=== PATIENT | male | born 1970 | race Caucasian/White ===

== ENCOUNTER 2016-11-17 23:30 | Inpatient (IN) | payer MEDICARE, MEDICAID ==
[2016-11-17] MEDS ORDERED: Sodium Chloride 0.9% 1,000 ML IV ONE (23:40)
--- NOTE | 2016-11-17 23:48 | ED Physician Chart ---
Chief Complaint/HPI - Patient Information Date Seen:: 11/17/16 Time Seen:: 23:30 Chief Complaint:: fever History of Present Illness:: had temperature of 102.5 at 2100. Arrived at 2 hr before from [place] where had extra corporeal shock wave lithotripsy and urological surgery with right flank incision. Allergies:: Allergies Allergy/AdvReac Type Severity Reaction Status Date / Time MDX Docusate [From [facility]] Allergy Verified 08/15/15 18:41 Historian:: EMS, Family Member Review:: Nurse's Note Reviewed, Transfer documents Reviewed Review of Systems - Review of Systems General/Constitutional: Fever Skin: No skin lesions Head: No headache Eyes: No loss of vision ENT: No earache Neck: No neck pain Cardio Vascular: No chest pain Pulmonary: No SOB GI: No nausea, No vomiting G/U: No dysuria Musculoskeletal: No bone or joint pain Endocrine: No polyuria Psychiatric: No prior psych history Hematopoietic: No bruising Allergic/Immuno: No urticaria Neurological: No syncope, No focal symptoms Past Medical History - Past Medical History Past Medical History: HTN (profound MR; cerebral palsy; blind; osteoporosis; nephrolithiasis; mitral valve regurgitation; recurrent UTI; gastritis), Seizures Family History: Other (not available) Social History: Care Facility Surgical History: other (unavailable) Family Medical History - Family Member Mother History Unknown: Yes Physical Exam - Physical Examination Other Gen/Cons comments:: non-verbal; contractured Head: Atraumatic Eyes: Lids, conjuctiva normal, PERRL Skin: Nl inspection ENMT: External ears, nose nl Neck: No JVD Respiratory: Nl effort/Exclusion, Clear to Auscultation Cardio Vascular: RRR GI: No tenderness/rebounding/guarding, No organomegaly, No hernia, Normal BS's Extremities: No edema Labs/Radiology/EKG Results - Lab Results Results: Laboratory Results - last 24 hr 11/18/16 11/18/16 11/18/16 00:04 00:04 01:00 WBC 12.9 H RBC 4.28 L Hgb 11.6 L Hct 34.8 L D MCV 81.3 MCH 27.0 MCHC Differential 33.2 RDW 14.7 Plt Count 400 D MPV 6.7 Neutrophils % 76.7 Lymphocytes % 13.8 L Monocytes % 6.1 Eosinophils % 3.3 Basophils % 0.1 Sodium 136 Potassium 3.4 L Chloride 104 Carbon Dioxide 22.2 Anion Gap 13.2 BUN 18 Creatinine 1.5 H Est GFR ( Amer) > 60.0 Est GFR (Non-Af Amer) 53.3 BUN/Creatinine Ratio 12.0 Glucose 141 H Calcium 9.6 Urine Source [place] Urine Color YELLOW Urine Clarity HAZY Urine pH 6.0 Ur Specific [place] 1.020 Urine Protein >300 H Urine Glucose (UA) NEGATIVE Urine Ketones NEGATIVE Urine Blood LARGE H Urine Nitrate NEGATIVE Urine Bilirubin NEGATIVE Urine Urobilinogen 0.2 Ur Leukocyte Esterase SMALL H Urine RBC >100 H Urine WBC >100 H Ur Epithelial Cells FEW Urine Bacteria MODERATE - Radiology Results Results: CXR: pleural effusion right base. ED Septic Shock - . Is Septic Shock (SBP<90, OR Lactate>4 mmol\L) present?: No Reassessment (Disposition) - Reassessment Reassessment Condition:: Unchanged - Diagnosis Diagnosis:: sepsis; acute febrile illness; urinary tract infection - Patient Disposition Admitted to:: Med/Surg Spoke to:: Doni Bhagat Admitting Medical Physician:: Doni Bhagat Condition at Disposition:: Stable, Improved
[2016-11-18 00:16] LABS: % BASOPHILS 0.1 % (0.0-2.0); % EOSINOPHILS 3.3 % (0.0-5.0); % LYMPHOCYTES 13.8 % (20.0-50.0); % MONOCYTES 6.1 % (2.0-10.0); % NEUTROPHILS 76.7 % (40.0-80.0); HEMOGLOBIN 11.6 gm/dL (13.2-17.3); MEAN CELL VOLUME 81.3 fl (80-99); MEAN CORPUSCULAR HGB CONC 33.2 pg (28.0-36.0); MEAN PLATELET VOLUME 6.7 fl; NEUTROPHILE ABSOLUTE 9.9 Th/cmm (1.8-8.0); RED BLOOD COUNT 4.28 Mil/cmm (4.30-5.70); RED CELL DISTRIBUTION WIDTH 14.7 % (11.5-20.0); WHITE BLOOD COUNT 12.9 Th/cmm (4.8-10.8)
[2016-11-18 00:17] LABS: HEMATOCRIT 34.8 % (39.0-49.0)
[2016-11-18 00:18] LABS: PLATELET COUNT 400 Th/cmm (150-400)
[2016-11-18] MEDS ORDERED: Magnesium Hydroxide (MOM) 30 mL UDC PO PRN (00:19)
[2016-11-18] MEDS ORDERED: Hydrocodone/APAP 5mg/325mg Tab PO PRN (00:19)
[2016-11-18] MEDS ORDERED: Maalox 30 mL Cup PO PRN (00:22)
[2016-11-18 00:27] LABS: ANION GAP 13.2 (7.0-16.0); BUN - UREA NITROGEN 18 mg/dL (7-25); CALCIUM SERUM 9.6 mg/dL (8.6-10.3); CARBON DIOXIDE 22.2 mEq/L (21.0-31.0); CHLORIDE 104 mEq/L (98-107); CREATININE - SERUM 1.5 mg/dL (0.7-1.3); GLUCOSE 141 mg/dL (70-105); POTASSIUM SERUM 3.4 mEq/L (3.5-5.1); SODIUM SERUM 136 mEq/L (136-145)
[2016-11-18 01:20] LABS: URINE BILIRUBIN NEGATIVE (NEGATIVE); URINE COLOR YELLOW; URINE GLUCOSE (UA) NEGATIVE (NEGATIVE); URINE KETONE NEGATIVE (NEGATIVE)
[2016-11-18 01:21] LABS: URINE BLOOD LARGE (NEGATIVE); URINE PROTEIN >300 mg/dL (NEGATIVE); URINE RBC >100 /hpf (0-5); URINE UROBILINOGEN 0.2 E.U./dL (0.2 - 1.0)
[2016-11-18 01:22] LABS: URINE BACTERIA MODERATE /hpf (NONE SEEN); URINE EPITHELIAL CELLS FEW /lpf (FEW); URINE WBC >100 /hpf (0-5)
--- NOTE | 2016-11-18 02:25 | Admit Criteria Form ---
Admit Criteria Forms - Admit Criteria Diagnosis: URINARY COMPLICATIONS Clinical Indications for Inpatient Care (Place 'X' for any and all applicable criteria): Ongoing inpatient care may be indicated for urinary complications with ANY ONE of the following: [ X]I. Urinary tract infection requiring inpatient care as indicated by ANY ONE of the following(8)(19)(20): [ ]a) Severe symptoms (eg, high fever, severe pain) [ ]b) Vomiting or dehydration requiring ongoing inpatient care [ X]c) IV antibiotic needs that cannot be managed at lower level of care [ ]d) Hemodynamic instability [ ]e) Obstruction of collecting system by stone or tumor [ ]II. Urinary retention requiring drainage or surgery (3)(4)(5)(17)(18) [ ]III. Renal failure (Use Renal Failure Criteria for further information.) [ ]IV. Oliguria(30) [ ]V. Post obstructive diuresis requiring close monitoring of urine output and intravenous compensation for excessive fluid losses(33) Extended stay beyond goal length of stay for primary condition may be needed until ALL of the following are present(3)(4)(5)(8): [ ]a) Renal function (creatinine) at baseline, or daily decreases in creatinine consistent with renal function return [ ]b) Voiding adequately or with urinary catheter or percutaneous suprapubic tube and management regimen in place that is performable at lower level of care. [ ]c) Urine output adequate [ ]d) Fever absent or resolving [ ]e) Infection absent or treatable at next level of care The original [employer] content created by [employer] has been revised. The portions of the content which have been revised are identified through the use of italic text or in bold, and [facility] [employer] has neither reviewed nor approved the modified material. All other unmodified content is copyright [facility] [employer] Please see references footnoted in the original [facility] [employer] edition 2016 Admit Criteria Met?: Yes
[2016-11-18] MEDS: D5-0.45NS 1,000 ML IV SCH ×2 (03:00→14:52)
[2016-11-18] MEDS: Multivitamin w/ Minerals Tab PO SCH (09:06)
[2016-11-18] MEDS: POLYETHYLENE GLYCOL 3350 17 GM PACK PO SCH ×2 (09:08→16:56)
--- NOTE | 2016-11-18 09:37 | Diagnostic Imaging Report ---
CHEST X-RAY: AP view INDICATION: Fever COMPARISON: Chest x-ray 08/15/2015 FINDINGS: A right pleural effusion is noted with right lung infiltrates. Heart size is normal. Osseous structures are intact. IMPRESSION: Interval development of a right pleural effusion with right lung infiltrates. Clinical correlation and follow-up is recommended.
[2016-11-18] MEDS: Zinc Oxide Ointment 60 gm TP SCH ×2 (09:58→16:55)
--- NOTE | 2016-11-18 13:01 | Internal Medicine Prog Note ---
Internal Medicine Subjective - Subjective Service Date: 11/18/16 ([facility] [id number] Internal Medicine Objective - Results Result Diagrams: 11/18/16 00:04 11/18/16 00:04 Recent Labs: Laboratory Last Values WBC 12.9 Th/cmm (4.8-10.8) H 11/18/16 00:04 RBC 4.28 Mil/cmm (4.30-5.70) L 11/18/16 00:04 Hgb 11.6 gm/dL (13.2-17.3) L 11/18/16 00:04 Hct 34.8 % (39.0-49.0) L D 11/18/16 00:04 MCV 81.3 fl (80-99) 11/18/16 00:04 MCH 27.0 pg (26.0-30.0) 11/18/16 00:04 MCHC Differential 33.2 pg (28.0-36.0) 11/18/16 00:04 RDW 14.7 % (11.5-20.0) 11/18/16 00:04 Plt Count 400 Th/cmm (150-400) D 11/18/16 00:04 MPV 6.7 fl 11/18/16 00:04 Neutrophils % 76.7 % (40.0-80.0) 11/18/16 00:04 Lymphocytes % 13.8 % (20.0-50.0) L 11/18/16 00:04 Monocytes % 6.1 % (2.0-10.0) 11/18/16 00:04 Eosinophils % 3.3 % (0.0-5.0) 11/18/16 00:04 Basophils % 0.1 % (0.0-2.0) 11/18/16 00:04 Sodium 136 mEq/L (136-145) 11/18/16 00:04 Potassium 3.4 mEq/L (3.5-5.1) L 11/18/16 00:04 Chloride 104 mEq/L (98-107) 11/18/16 00:04 Carbon Dioxide 22.2 mEq/L (21.0-31.0) 11/18/16 00:04 Anion Gap 13.2 (7.0-16.0) 11/18/16 00:04 BUN 18 mg/dL (7-25) 11/18/16 00:04 Creatinine 1.5 mg/dL (0.7-1.3) H 11/18/16 00:04 Est GFR ( Amer) > 60.0 ml/min 11/18/16 00:04 Est GFR (Non-Af Amer) 53.3 ml/min 11/18/16 00:04 BUN/Creatinine Ratio 12.0 11/18/16 00:04 Glucose 141 mg/dL (70-105) H 11/18/16 00:04 Calcium 9.6 mg/dL (8.6-10.3) 11/18/16 00:04 Urine Source [place] 11/18/16 01:00 Urine Color YELLOW 11/18/16 01:00 Urine Clarity HAZY (CLEAR) 11/18/16 01:00 Urine pH 6.0 11/18/16 01:00 Ur Specific [place] 1.020 (1.005-1.030) 11/18/16 01:00 Urine Protein >300 mg/dL (NEGATIVE) H 11/18/16 01:00 Urine Glucose (UA) NEGATIVE mg/dL (NEGATIVE) 11/18/16 01:00 Urine Ketones NEGATIVE mg/dL (NEGATIVE) 11/18/16 01:00 Urine Blood LARGE (NEGATIVE) H 11/18/16 01:00 Urine Nitrate NEGATIVE (NEGATIVE) 11/18/16 01:00 Urine Bilirubin NEGATIVE (NEGATIVE) 11/18/16 01:00 Urine Urobilinogen 0.2 E.U./dL (0.2 - 1.0) 11/18/16 01:00 Ur Leukocyte Esterase SMALL (NEGATIVE) H 11/18/16 01:00 Urine RBC >100 /hpf (0-5) H 11/18/16 01:00 Urine WBC >100 /hpf (0-5) H 11/18/16 01:00 Ur Epithelial Cells FEW /lpf (FEW) 11/18/16 01:00 Urine Bacteria MODERATE /hpf (NONE SEEN) 11/18/16 01:00 - Physical Exam Vitals and I&O: Vital Signs Temp 99.4 F 11/18/16 08:00 Pulse 77 11/18/16 09:07 Resp 18 11/18/16 08:00 BP 154/79 11/18/16 09:07 Pulse Ox 95 11/18/16 04:58 Intake & Output 11/17/16 11/18/16 11/18/16 18:59 06:59 18:59 Intake Total 0 Output Total 450 Balance -450 Intake: Oral 0 Output: Urine 450 Other: # Bowel Movements 0 Active Medications: Current Medications Acetaminophen (Tylenol 650mg Supp) 650 mg RC Q4HR PRN PRN Reason: Pain or Fever >101 Stop: 01/17/17 00:18 Acetaminophen/Hydrocodone Bitart ([place] 5mg/325mg) 1 tab PO Q4H PRN PRN Reason: Pain (Moderate) Stop: 01/17/17 00:18 Al Hydrox/Mg Hydrox/Simethicone (Maalox) 30 ml PO Q6HR PRN PRN Reason: Constipation Stop: 01/17/17 00:21 Amlodipine Besylate (Norvasc) 5 mg PO DAILY [facility] Stop: 01/17/17 08:59 Last Admin: 11/18/16 09:07 Dose: 5 mg Baclofen (Lioresal) 10 mg PO QID [facility] Stop: 01/17/17 08:59 Last Admin: 11/18/16 12:12 Dose: 10 mg Bisacodyl (Dulcolax 10 Mg Supp) 10 mg RC DAILY PRN PRN Reason: Constipation Stop: 01/17/17 00:18 Calcium Carbonate (Os-Tam) 500 mg PO TID [facility] Stop: 01/17/17 08:59 Last Admin: 11/18/16 09:07 Dose: 500 mg Famotidine (Pepcid) 20 mg PO BID [facility] Stop: 01/17/17 08:59 Last Admin: 11/18/16 09:06 Dose: 20 mg Dextrose/Sodium Chloride (D5-0.45ns) 1,000 mls @ 80 mls/hr IV .[id number] [facility] Stop: 01/17/17 00:29 Last Admin: 11/18/16 03:00 Dose: 80 mls/hr Piperacillin Sod/Tazobactam (Sod 4.5 gm/ Sodium Chloride) 100 mls @ 100 mls/hr IV Q8HR [facility] Stop: 01/17/17 01:59 Last Admin: 11/18/16 03:25 Dose: 100 mls/hr Magnesium Hydroxide (Milk Of Magnesia) 30 ml PO Q72H PRN PRN Reason: Constipation Stop: 01/17/17 00:18 Metoprolol Tartrate (Lopressor) 50 mg PO BID [facility] Stop: 01/17/17 08:59 Last Admin: 11/18/16 09:06 Dose: 50 mg Ondansetron HCl (Zofran) 4 mg IV Q8H PRN PRN Reason: Nausea / Vomiting Stop: 01/17/17 00:21 Petrolatum (Zinc Oxide) 1 appl TP BID [facility] Stop: 01/17/17 08:59 Last Admin: 11/18/16 09:58 Dose: 1 appl Polyethylene Glycol (Miralax) 17 gm PO BID [facility] Stop: 01/17/17 08:59 Last Admin: 11/18/16 09:08 Dose: 17 gm Vitamin D (Vitamin D) 400 iu PO DAILY [facility] Stop: 01/17/17 08:59 Last Admin: 11/18/16 09:06 Dose: 400 iu - Procedures Procedures: Procedures Procedure Code Date INSERT INDWELLING CATH 57.94 08/21/08 INSERT TEMP BLADDER CATH 35410 08/21/08 Internal Medicine Assmt/Plan - Assessment Assessment: Fever, Sepsis
[2016-11-18] MEDS ORDERED: VTE Chemical Prophylaxis Screen/Admission MC PRN (13:09)
--- NOTE | 2016-11-18 17:51 | History & Physical ---
CHIEF COMPLAINT: Abdominal pain. HISTORY OF PRESENT ILLNESS: This is a 46-year-old male who is a resident of [facility] who is brought here to [facility] for 1-day history of a temperature of 102.5. According to the medical records, the patient was just recently discharged from [facility] where he had extracorporeal shockwave lithotripsy and urological surgery with the right flank incision. For this reason, the patient is now admitted to the telemetry unit. PAST MEDICAL HISTORY: Hypertension, cerebral palsy, osteoporosis, nephrolithiasis, mitral valve regurgitation, recurrent UTI, gastritis, and seizures. SOCIAL HISTORY: The patient resides at [facility], requiring 24-hour nursing care. SURGICAL HISTORY: The patient has recently had extracorporeal shockwave lithotripsy and urological surgery with right flank incision. REVIEW OF SYSTEMS: Unable to obtain due to the patient's mental status. PHYSICAL EXAMINATION: GENERAL: The patient is well developed, well nourished, no acute distress. VITAL SIGNS: Temperature 99.4, heart rate 113, blood pressure 130/74, respirations 18. HEENT: Head: Normocephalic, atraumatic. NECK: Supple. No mass. LUNGS: Few rhonchi bilaterally upon auscultation. CARDIOVASCULAR: Regular rate and rhythm. No murmurs or gallops. SKIN: Intact, warm and dry to touch. ABDOMEN: Soft, nontender, nondistended. Positive bowel sounds in all 4 quadrants. LABORATORY DATA: WBC 12.9, H and H 11.6 and 34.8. Sodium 136, potassium 3.4, chloride 104, carbon dioxide 22.2, BUN of 18, creatinine 1.5. The patient had a urinalysis done and it was positive for UTI. ASSESSMENT: Fever, sepsis. PLAN: The patient to be admitted to the med/surg unit. The patient will be on IV fluids for hydration. We will monitor the patient's CBC and BMP. The patient will be kept on IV antibiotics of Zosyn. We will continue to monitor the patient. JOB# [id number]
[2016-11-19] MEDS: D5-0.45NS 1,000 ML IV SCH ×2 (06:40→20:12)
[2016-11-19] MEDS: POLYETHYLENE GLYCOL 3350 17 GM PACK PO SCH ×2 (08:49→16:24)
[2016-11-19] MEDS: Multivitamin w/ Minerals Tab PO SCH (08:49)
[2016-11-19] MEDS: Zinc Oxide Ointment 60 gm TP SCH ×2 (08:51→16:24)
--- NOTE | 2016-11-19 16:50 | Internal Medicine Prog Note ---
Internal Medicine Subjective - Subjective Service Date: 11/19/16 Patient seen and examined:: with staff Patient is:: awake Per staff patient is:: no adverse event Internal Medicine Objective - Results Result Diagrams: 11/18/16 00:04 11/18/16 00:04 Recent Labs: Laboratory Last Values WBC 12.9 Th/cmm (4.8-10.8) H 11/18/16 00:04 RBC 4.28 Mil/cmm (4.30-5.70) L 11/18/16 00:04 Hgb 11.6 gm/dL (13.2-17.3) L 11/18/16 00:04 Hct 34.8 % (39.0-49.0) L D 11/18/16 00:04 MCV 81.3 fl (80-99) 11/18/16 00:04 MCH 27.0 pg (26.0-30.0) 11/18/16 00:04 MCHC Differential 33.2 pg (28.0-36.0) 11/18/16 00:04 RDW 14.7 % (11.5-20.0) 11/18/16 00:04 Plt Count 400 Th/cmm (150-400) D 11/18/16 00:04 MPV 6.7 fl 11/18/16 00:04 Neutrophils % 76.7 % (40.0-80.0) 11/18/16 00:04 Lymphocytes % 13.8 % (20.0-50.0) L 11/18/16 00:04 Monocytes % 6.1 % (2.0-10.0) 11/18/16 00:04 Eosinophils % 3.3 % (0.0-5.0) 11/18/16 00:04 Basophils % 0.1 % (0.0-2.0) 11/18/16 00:04 Sodium 136 mEq/L (136-145) 11/18/16 00:04 Potassium 3.4 mEq/L (3.5-5.1) L 11/18/16 00:04 Chloride 104 mEq/L (98-107) 11/18/16 00:04 Carbon Dioxide 22.2 mEq/L (21.0-31.0) 11/18/16 00:04 Anion Gap 13.2 (7.0-16.0) 11/18/16 00:04 BUN 18 mg/dL (7-25) 11/18/16 00:04 Creatinine 1.5 mg/dL (0.7-1.3) H 11/18/16 00:04 Est GFR ( Amer) > 60.0 ml/min 11/18/16 00:04 Est GFR (Non-Af Amer) 53.3 ml/min 11/18/16 00:04 BUN/Creatinine Ratio 12.0 11/18/16 00:04 Glucose 141 mg/dL (70-105) H 11/18/16 00:04 Calcium 9.6 mg/dL (8.6-10.3) 11/18/16 00:04 Urine Source [place] 11/18/16 01:00 Urine Color YELLOW 11/18/16 01:00 Urine Clarity HAZY (CLEAR) 11/18/16 01:00 Urine pH 6.0 11/18/16 01:00 Ur Specific [place] 1.020 (1.005-1.030) 11/18/16 01:00 Urine Protein >300 mg/dL (NEGATIVE) H 11/18/16 01:00 Urine Glucose (UA) NEGATIVE mg/dL (NEGATIVE) 11/18/16 01:00 Urine Ketones NEGATIVE mg/dL (NEGATIVE) 11/18/16 01:00 Urine Blood LARGE (NEGATIVE) H 11/18/16 01:00 Urine Nitrate NEGATIVE (NEGATIVE) 11/18/16 01:00 Urine Bilirubin NEGATIVE (NEGATIVE) 11/18/16 01:00 Urine Urobilinogen 0.2 E.U./dL (0.2 - 1.0) 11/18/16 01:00 Ur Leukocyte Esterase SMALL (NEGATIVE) H 11/18/16 01:00 Urine RBC >100 /hpf (0-5) H 11/18/16 01:00 Urine WBC >100 /hpf (0-5) H 11/18/16 01:00 Ur Epithelial Cells FEW /lpf (FEW) 11/18/16 01:00 Urine Bacteria MODERATE /hpf (NONE SEEN) 11/18/16 01:00 - Physical Exam Vitals and I&O: Vital Signs Temp 99.1 F 11/19/16 16:00 Pulse 99 11/19/16 16:25 Resp 18 11/19/16 16:00 BP 128/76 11/19/16 16:25 Pulse Ox 94 11/19/16 16:00 Intake & Output 11/18/16 11/19/16 11/19/16 18:59 06:59 18:59 Intake Total 6279.257 9273.667 Output Total 1201 Balance 1049.333 10.667 Intake: Intake, IV Amount 5786.947 9944.667 D5-0.45NS 1,000 ml @ 80 523.892 2794 mls/hr IV .[id number] [facility] Rx #:[id number] Piperacillin Sodium/ 100 191.667 Tazobact 4.5 gm In Sodium Chloride 0.9% 100 ml @ 100 mls/hr IV Q8HR [facility] Rx #:[id number] Oral 20 Output: Urine 1200 Stool 1 Active Medications: Current Medications Acetaminophen (Tylenol 650mg Supp) 650 mg RC Q4HR PRN PRN Reason: Pain or Fever >101 Stop: 01/17/17 00:18 Last Admin: 11/19/16 08:49 Dose: 650 mg Acetaminophen/Hydrocodone Bitart ([place] 5mg/325mg) 1 tab PO Q4H PRN PRN Reason: Pain (Moderate) Stop: 01/17/17 00:18 Al Hydrox/Mg Hydrox/Simethicone (Maalox) 30 ml PO Q6HR PRN PRN Reason: Constipation Stop: 01/17/17 00:21 Amlodipine Besylate (Norvasc) 5 mg PO DAILY [facility] Stop: 01/17/17 08:59 Last Admin: 11/19/16 08:50 Dose: 5 mg Baclofen (Lioresal) 10 mg PO QID [facility] Stop: 01/17/17 08:59 Last Admin: 11/19/16 16:25 Dose: 10 mg Bisacodyl (Dulcolax 10 Mg Supp) 10 mg RC DAILY PRN PRN Reason: Constipation Stop: 01/17/17 00:18 Calcium Carbonate (Os-Tam) 500 mg PO TID [facility] Stop: 01/17/17 08:59 Last Admin: 11/19/16 13:48 Dose: 500 mg Famotidine (Pepcid) 20 mg PO BID [facility] Stop: 01/17/17 08:59 Last Admin: 11/19/16 16:25 Dose: 20 mg Dextrose/Sodium Chloride (D5-0.45ns) 1,000 mls @ 80 mls/hr IV .[id number] [facility] Stop: 01/17/17 00:29 Last Admin: 11/19/16 06:40 Dose: 80 mls/hr Piperacillin Sod/Tazobactam (Sod 4.5 gm/ Sodium Chloride) 100 mls @ 100 mls/hr IV Q8HR [facility] Stop: 01/17/17 01:59 Last Infusion: 11/19/16 06:18 Dose: 0 mls/hr Magnesium Hydroxide (Milk Of Magnesia) 30 ml PO Q72H PRN PRN Reason: Constipation Stop: 01/17/17 00:18 Metoprolol Tartrate (Lopressor) 50 mg PO BID [facility] Stop: 01/17/17 08:59 Last Admin: 11/19/16 16:25 Dose: 50 mg Miscellaneous (Vte Chemical Prophylaxis Screen/ Admission) 1 ea [facility] PRN PRN PRN Reason: PROTOCOL Stop: 01/17/17 13:08 Ondansetron HCl (Zofran) 4 mg IV Q8H PRN PRN Reason: Nausea / Vomiting Stop: 01/17/17 00:21 Petrolatum (Zinc Oxide) 1 appl TP BID [facility] Stop: 01/17/17 08:59 Last Admin: 11/19/16 16:24 Dose: 1 appl Polyethylene Glycol (Miralax) 17 gm PO BID [facility] Stop: 01/17/17 08:59 Last Admin: 11/19/16 16:24 Dose: 17 gm Vitamin D (Vitamin D) 400 iu PO DAILY [facility] Stop: 01/17/17 08:59 Last Admin: 11/19/16 08:49 Dose: 400 iu General: alert HEENT: NC/AT, PERRLA Neck: Supple Lungs: CTAB Cardiovascular: RRR, Normal S1, Normal S2, without murmur Abdomen: soft non-tender - Procedures Procedures: Procedures Procedure Code Date INSERT INDWELLING CATH 57.94 08/21/08 INSERT TEMP BLADDER CATH [id number] 08/21/08 Internal Medicine Assmt/Plan - Assessment Assessment: Fever Sepsis - Plan Plan: MONITOR FOR FEVER IVABX CBC/BMP IN AM IVF FOR HYDRATION
[2016-11-19] MEDS ORDERED: KCL 20mEq/100mL Premix 20 MEQ/100 ML PIGGYBACK IV ONE (16:51)
[2016-11-19] MEDS: Guaifenesin DM 10 ML UDC PO PRN (19:56)
[2016-11-20 05:48] LABS: % BASOPHILS 0.8 % (0.0-2.0); % EOSINOPHILS 5.6 % (0.0-5.0); % MONOCYTES 7.5 % (2.0-10.0); % NEUTROPHILS 73.1 % (40.0-80.0); HEMOGLOBIN 9.8 gm/dL (13.2-17.3); MEAN CELL VOLUME 81.2 fl (80-99); MEAN CORPUSCULAR HEMOGLOBIN 26.9 pg (26.0-30.0); MEAN CORPUSCULAR HGB CONC 33.2 pg (28.0-36.0); MEAN PLATELET VOLUME 6.8 fl; NEUTROPHILE ABSOLUTE 7.1 Th/cmm (1.8-8.0); PLATELET COUNT 420 Th/cmm (150-400); RED BLOOD COUNT 3.63 Mil/cmm (4.30-5.70)
[2016-11-20 05:58] LABS: ANION GAP 10.1 (7.0-16.0); BUN/CREATININE RATIO 7.5; CALCIUM SERUM 9.1 mg/dL (8.6-10.3); CARBON DIOXIDE 20.6 mEq/L (21.0-31.0); CREATININE - SERUM 1.6 mg/dL (0.7-1.3); POTASSIUM SERUM 3.7 mEq/L (3.5-5.1)
[2016-11-20 05:59] LABS: HEMATOCRIT 29.5 % (39.0-49.0); WHITE BLOOD COUNT 9.6 Th/cmm (4.8-10.8)
[2016-11-20] MEDS: POLYETHYLENE GLYCOL 3350 17 GM PACK PO SCH ×2 (08:50→16:32)
[2016-11-20] MEDS: Zinc Oxide Ointment 60 gm TP SCH ×2 (08:50→16:32)
[2016-11-20] MEDS: Multivitamin w/ Minerals Tab PO SCH (08:51)
[2016-11-20] MEDS: Guaifenesin DM 10 ML UDC PO PRN (09:11)
[2016-11-20] MEDS: D5-0.45NS 1,000 ML IV SCH (16:33)
--- NOTE | 2016-11-20 16:57 | Internal Medicine Prog Note ---
Internal Medicine Subjective - Subjective Service Date: 11/20/16 Patient seen and examined:: with staff Patient is:: awake Per staff patient is:: no adverse event Internal Medicine Objective - Results Result Diagrams: 11/20/16 05:20 11/20/16 05:20 Recent Labs: Laboratory Last Values WBC 9.6 Th/cmm (4.8-10.8) D 11/20/16 05:20 RBC 3.63 Mil/cmm (4.30-5.70) L 11/20/16 05:20 Hgb 9.8 gm/dL (13.2-17.3) L 11/20/16 05:20 Hct 29.5 % (39.0-49.0) L D 11/20/16 05:20 MCV 81.2 fl (80-99) 11/20/16 05:20 MCH 26.9 pg (26.0-30.0) 11/20/16 05:20 MCHC Differential 33.2 pg (28.0-36.0) 11/20/16 05:20 RDW 15.0 % (11.5-20.0) 11/20/16 05:20 Plt Count 420 Th/cmm (150-400) H 11/20/16 05:20 MPV 6.8 fl 11/20/16 05:20 Neutrophils % 73.1 % (40.0-80.0) 11/20/16 05:20 Lymphocytes % 13.0 % (20.0-50.0) L 11/20/16 05:20 Monocytes % 7.5 % (2.0-10.0) 11/20/16 05:20 Eosinophils % 5.6 % (0.0-5.0) H 11/20/16 05:20 Basophils % 0.8 % (0.0-2.0) 11/20/16 05:20 Sodium 135 mEq/L (136-145) L 11/20/16 05:20 Potassium 3.7 mEq/L (3.5-5.1) 11/20/16 05:20 Chloride 108 mEq/L (98-107) H 11/20/16 05:20 Carbon Dioxide 20.6 mEq/L (21.0-31.0) L 11/20/16 05:20 Anion Gap 10.1 (7.0-16.0) 11/20/16 05:20 BUN 12 mg/dL (7-25) 11/20/16 05:20 Creatinine 1.6 mg/dL (0.7-1.3) H 11/20/16 05:20 Est GFR ( Amer) 59.9 ml/min 11/20/16 05:20 Est GFR (Non-Af Amer) 49.5 ml/min 11/20/16 05:20 BUN/Creatinine Ratio 7.5 11/20/16 05:20 Glucose 107 mg/dL (70-105) H 11/20/16 05:20 Calcium 9.1 mg/dL (8.6-10.3) 11/20/16 05:20 Urine Source [place] 11/18/16 01:00 Urine Color YELLOW 11/18/16 01:00 Urine Clarity HAZY (CLEAR) 11/18/16 01:00 Urine pH 6.0 11/18/16 01:00 Ur Specific [place] 1.020 (1.005-1.030) 11/18/16 01:00 Urine Protein >300 mg/dL (NEGATIVE) H 11/18/16 01:00 Urine Glucose (UA) NEGATIVE mg/dL (NEGATIVE) 11/18/16 01:00 Urine Ketones NEGATIVE mg/dL (NEGATIVE) 11/18/16 01:00 Urine Blood LARGE (NEGATIVE) H 11/18/16 01:00 Urine Nitrate NEGATIVE (NEGATIVE) 11/18/16 01:00 Urine Bilirubin NEGATIVE (NEGATIVE) 11/18/16 01:00 Urine Urobilinogen 0.2 E.U./dL (0.2 - 1.0) 11/18/16 01:00 Ur Leukocyte Esterase SMALL (NEGATIVE) H 11/18/16 01:00 Urine RBC >100 /hpf (0-5) H 11/18/16 01:00 Urine WBC >100 /hpf (0-5) H 11/18/16 01:00 Ur Epithelial Cells FEW /lpf (FEW) 11/18/16 01:00 Urine Bacteria MODERATE /hpf (NONE SEEN) 11/18/16 01:00 - Physical Exam Vitals and I&O: Vital Signs Temp 98.5 F 11/20/16 12:00 Pulse 100 11/20/16 16:31 Resp 18 11/20/16 12:00 BP 115/78 11/20/16 16:31 Pulse Ox 94 11/20/16 12:00 Intake & Output 11/19/16 11/20/16 11/20/16 18:59 06:59 18:59 Intake Total 200 1100 1000 Output Total 300 Balance -100 1100 1000 Intake: Intake, IV Amount 1100 1000 D5-0.45NS 1,000 ml @ 80 1000 1000 mls/hr IV .[id number] [facility] Rx #:[id number] Piperacillin Sodium/ 100 Tazobact 4.5 gm In Sodium Chloride 0.9% 100 ml @ 100 mls/hr IV Q8HR [facility] Rx #:[id number] Oral 200 Output: Urine 300 Other: # Voids 2 # Bowel Movements 2 Active Medications: Current Medications Acetaminophen (Tylenol 650mg Supp) 650 mg RC Q4HR PRN PRN Reason: Pain or Fever >101 Stop: 01/17/17 00:18 Last Admin: 11/20/16 09:11 Dose: 650 mg Acetaminophen/Hydrocodone Bitart ([place] 5mg/325mg) 1 tab PO Q4H PRN PRN Reason: Pain (Moderate) Stop: 01/17/17 00:18 Last Admin: 11/19/16 19:56 Dose: 1 tab Al Hydrox/Mg Hydrox/Simethicone (Maalox) 30 ml PO Q6HR PRN PRN Reason: Constipation Stop: 01/17/17 00:21 Amlodipine Besylate (Norvasc) 5 mg PO DAILY [facility] Stop: 01/17/17 08:59 Last Admin: 11/20/16 08:50 Dose: 5 mg Baclofen (Lioresal) 10 mg PO QID [facility] Stop: 01/17/17 08:59 Last Admin: 11/20/16 16:32 Dose: 10 mg Bisacodyl (Dulcolax 10 Mg Supp) 10 mg RC DAILY PRN PRN Reason: Constipation Stop: 01/17/17 00:18 Calcium Carbonate (Os-Tam) 500 mg PO TID [facility] Stop: 01/17/17 08:59 Last Admin: 11/20/16 13:31 Dose: 500 mg Famotidine (Pepcid) 20 mg PO BID [facility] Stop: 01/17/17 08:59 Last Admin: 11/20/16 16:32 Dose: 20 mg Guaifenesin/Dextromethorphan (Robitussin Dm) 10 ml PO Q8HR PRN PRN Reason: Cough Stop: 01/18/17 17:28 Last Admin: 11/20/16 09:11 Dose: 10 ml Dextrose/Sodium Chloride (D5-0.45ns) 1,000 mls @ 80 mls/hr IV .[id number] [facility] Stop: 01/17/17 00:29 Last Admin: 11/20/16 16:33 Dose: 80 mls/hr Piperacillin Sod/Tazobactam (Sod 4.5 gm/ Sodium Chloride) 100 mls @ 100 mls/hr IV Q8HR [facility] Stop: 01/17/17 01:59 Last Infusion: 11/20/16 02:53 Dose: 0 mls/hr Magnesium Hydroxide (Milk Of Magnesia) 30 ml PO Q72H PRN PRN Reason: Constipation Stop: 01/17/17 00:18 Metoprolol Tartrate (Lopressor) 50 mg PO BID [facility] Stop: 01/17/17 08:59 Last Admin: 11/20/16 16:31 Dose: 50 mg Miscellaneous (Vte Chemical Prophylaxis Screen/ Admission) 1 ea MC PRN PRN PRN Reason: PROTOCOL Stop: 01/17/17 13:08 Ondansetron HCl (Zofran) 4 mg IV Q8H PRN PRN Reason: Nausea / Vomiting Stop: 01/17/17 00:21 Petrolatum (Zinc Oxide) 1 appl TP BID [facility] Stop: 01/17/17 08:59 Last Admin: 11/20/16 16:32 Dose: 1 appl Polyethylene Glycol (Miralax) 17 gm PO BID [facility] Stop: 01/17/17 08:59 Last Admin: 11/20/16 16:32 Dose: 17 gm Vitamin D (Vitamin D) 400 iu PO DAILY [facility] Stop: 01/17/17 08:59 Last Admin: 11/20/16 08:51 Dose: 400 iu General: alert HEENT: NC/AT, PERRLA Neck: Supple Lungs: CTAB Cardiovascular: RRR, Normal S1, Normal S2, without murmur Abdomen: soft non-tender - Procedures Procedures: Procedures Procedure Code Date INSERT INDWELLING CATH 57.94 08/21/08 INSERT TEMP BLADDER CATH [id number] 08/21/08 Internal Medicine Assmt/Plan - Assessment Assessment: Fever Sepsis - Plan Plan: MONITOR FOR FEVER IVABX DC PLANNING IN AM CBC.BMP IN AM IVF FOR HYDRATION
[2016-11-21 06:24] LABS: % BASOPHILS 1.1 % (0.0-2.0); % EOSINOPHILS 5.3 % (0.0-5.0); % LYMPHOCYTES 16.5 % (20.0-50.0); % MONOCYTES 6.2 % (2.0-10.0); % NEUTROPHILS 70.9 % (40.0-80.0); HEMATOCRIT 28.6 % (39.0-49.0); HEMOGLOBIN 9.6 gm/dL (13.2-17.3); MEAN CELL VOLUME 80.4 fl (80-99); MEAN CORPUSCULAR HEMOGLOBIN 27.1 pg (26.0-30.0); MEAN CORPUSCULAR HGB CONC 33.7 pg (28.0-36.0); MEAN PLATELET VOLUME 6.9 fl; NEUTROPHILE ABSOLUTE 6.1 Th/cmm (1.8-8.0); PLATELET COUNT 479 Th/cmm (150-400); RED BLOOD COUNT 3.56 Mil/cmm (4.30-5.70); RED CELL DISTRIBUTION WIDTH 15.5 % (11.5-20.0); WHITE BLOOD COUNT 8.6 Th/cmm (4.8-10.8)
[2016-11-21 06:45] LABS: ANION GAP 9.3 (7.0-16.0); BUN/CREATININE RATIO 8.8; CALCIUM SERUM 9.1 mg/dL (8.6-10.3); CARBON DIOXIDE 21.3 mEq/L (21.0-31.0); CREATININE - SERUM 1.6 mg/dL (0.7-1.3); POTASSIUM SERUM 3.6 mEq/L (3.5-5.1)
[2016-11-21] MEDS: Multivitamin w/ Minerals Tab PO SCH (09:42)
[2016-11-21] MEDS: POLYETHYLENE GLYCOL 3350 17 GM PACK PO SCH ×2 (09:43→16:44)
[2016-11-21] MEDS: Zinc Oxide Ointment 60 gm TP SCH (09:52)
--- NOTE | 2016-11-21 12:18 | Internal Medicine Prog Note ---
Internal Medicine Subjective - Subjective Service Date: 11/21/16 Patient seen and examined:: with staff Patient is:: awake Per staff patient is:: no adverse event Internal Medicine Objective - Results Result Diagrams: 11/21/16 06:00 11/21/16 06:00 Recent Labs: Laboratory Last Values WBC 8.6 Th/cmm (4.8-10.8) 11/21/16 06:00 RBC 3.56 Mil/cmm (4.30-5.70) L 11/21/16 06:00 Hgb 9.6 gm/dL (13.2-17.3) L 11/21/16 06:00 Hct 28.6 % (39.0-49.0) L 11/21/16 06:00 MCV 80.4 fl (80-99) 11/21/16 06:00 MCH 27.1 pg (26.0-30.0) 11/21/16 06:00 MCHC Differential 33.7 pg (28.0-36.0) 11/21/16 06:00 RDW 15.5 % (11.5-20.0) 11/21/16 06:00 Plt Count 479 Th/cmm (150-400) H 11/21/16 06:00 MPV 6.9 fl 11/21/16 06:00 Neutrophils % 70.9 % (40.0-80.0) 11/21/16 06:00 Lymphocytes % 16.5 % (20.0-50.0) L 11/21/16 06:00 Monocytes % 6.2 % (2.0-10.0) 11/21/16 06:00 Eosinophils % 5.3 % (0.0-5.0) H 11/21/16 06:00 Basophils % 1.1 % (0.0-2.0) 11/21/16 06:00 Sodium 140 mEq/L (136-145) 11/21/16 06:00 Potassium 3.6 mEq/L (3.5-5.1) 11/21/16 06:00 Chloride 113 mEq/L (98-107) H 11/21/16 06:00 Carbon Dioxide 21.3 mEq/L (21.0-31.0) 11/21/16 06:00 Anion Gap 9.3 (7.0-16.0) 11/21/16 06:00 BUN 14 mg/dL (7-25) 11/21/16 06:00 Creatinine 1.6 mg/dL (0.7-1.3) H 11/21/16 06:00 Est GFR ( Amer) 59.9 ml/min 11/21/16 06:00 Est GFR (Non-Af Amer) 49.5 ml/min 11/21/16 06:00 BUN/Creatinine Ratio 8.8 11/21/16 06:00 Glucose 107 mg/dL (70-105) H 11/21/16 06:00 Calcium 9.1 mg/dL (8.6-10.3) 11/21/16 06:00 Urine Source [place] 11/18/16 01:00 Urine Color YELLOW 11/18/16 01:00 Urine Clarity HAZY (CLEAR) 11/18/16 01:00 Urine pH 6.0 11/18/16 01:00 Ur Specific [place] 1.020 (1.005-1.030) 11/18/16 01:00 Urine Protein >300 mg/dL (NEGATIVE) H 11/18/16 01:00 Urine Glucose (UA) NEGATIVE mg/dL (NEGATIVE) 11/18/16 01:00 Urine Ketones NEGATIVE mg/dL (NEGATIVE) 11/18/16 01:00 Urine Blood LARGE (NEGATIVE) H 11/18/16 01:00 Urine Nitrate NEGATIVE (NEGATIVE) 11/18/16 01:00 Urine Bilirubin NEGATIVE (NEGATIVE) 11/18/16 01:00 Urine Urobilinogen 0.2 E.U./dL (0.2 - 1.0) 11/18/16 01:00 Ur Leukocyte Esterase SMALL (NEGATIVE) H 11/18/16 01:00 Urine RBC >100 /hpf (0-5) H 11/18/16 01:00 Urine WBC >100 /hpf (0-5) H 11/18/16 01:00 Ur Epithelial Cells FEW /lpf (FEW) 11/18/16 01:00 Urine Bacteria MODERATE /hpf (NONE SEEN) 11/18/16 01:00 - Physical Exam Vitals and I&O: Vital Signs Temp 98.8 F 11/21/16 04:00 Pulse 61 11/21/16 09:43 Resp 19 11/21/16 04:00 BP 106/71 11/21/16 09:43 Pulse Ox 95 11/21/16 04:00 Intake & Output 11/20/16 11/21/16 11/21/16 18:59 06:59 18:59 Intake Total 1000 80 Output Total 900 Balance 1000 -820 Intake: Intake, IV Amount 1000 D5-0.45NS 1,000 ml @ 80 1000 mls/hr IV .[id number] [facility] Rx #:[id number] Oral 80 Output: Urine 900 Other: # Bowel Movements 1 Stool Characteristics Soft Formed Active Medications: Current Medications Acetaminophen (Tylenol 650mg Supp) 650 mg RC Q4HR PRN PRN Reason: Pain or Fever >101 Stop: 01/17/17 00:18 Last Admin: 11/20/16 09:11 Dose: 650 mg Acetaminophen/Hydrocodone Bitart ([place] 5mg/325mg) 1 tab PO Q4H PRN PRN Reason: Pain (Moderate) Stop: 01/17/17 00:18 Last Admin: 11/19/16 19:56 Dose: 1 tab Al Hydrox/Mg Hydrox/Simethicone (Maalox) 30 ml PO Q6HR PRN PRN Reason: Constipation Stop: 01/17/17 00:21 Amlodipine Besylate (Norvasc) 5 mg PO DAILY [facility] Stop: 01/17/17 08:59 Last Admin: 11/21/16 09:43 Dose: 5 mg Baclofen (Lioresal) 10 mg PO QID [facility] Stop: 01/17/17 08:59 Last Admin: 11/21/16 09:43 Dose: 10 mg Bisacodyl (Dulcolax 10 Mg Supp) 10 mg RC DAILY PRN PRN Reason: Constipation Stop: 01/17/17 00:18 Calcium Carbonate (Os-Tam) 500 mg PO TID [facility] Stop: 01/17/17 08:59 Last Admin: 11/21/16 09:43 Dose: 500 mg Famotidine (Pepcid) 20 mg PO BID [facility] Stop: 01/17/17 08:59 Last Admin: 11/21/16 09:43 Dose: 20 mg Guaifenesin/Dextromethorphan (Robitussin Dm) 10 ml PO Q8HR PRN PRN Reason: Cough Stop: 01/18/17 17:28 Last Admin: 01/15/17 09:11 Dose: 10 ml Dextrose/Sodium Chloride (D5-0.45ns) 1,000 mls @ 80 mls/hr IV .[id number] [facility] Stop: 01/17/17 00:29 Last Admin: 11/20/16 16:33 Dose: 80 mls/hr Piperacillin Sod/Tazobactam (Sod 4.5 gm/ Sodium Chloride) 100 mls @ 100 mls/hr IV Q8HR [facility] Stop: 01/17/17 01:59 Last Admin: 11/21/16 12:04 Dose: 100 mls/hr Magnesium Hydroxide (Milk Of Magnesia) 30 ml PO Q72H PRN PRN Reason: Constipation Stop: 01/17/17 00:18 Metoprolol Tartrate (Lopressor) 50 mg PO BID [facility] Stop: 01/17/17 08:59 Last Admin: 11/21/16 09:43 Dose: 50 mg Miscellaneous (Vte Chemical Prophylaxis Screen/ Admission) 1 ea [facility] PRN PRN PRN Reason: PROTOCOL Stop: 01/17/17 13:08 Ondansetron HCl (Zofran) 4 mg IV Q8H PRN PRN Reason: Nausea / Vomiting Stop: 01/17/17 00:21 Petrolatum (Zinc Oxide) 1 appl TP BID [facility] Stop: 01/17/17 08:59 Last Admin: 11/21/16 09:52 Dose: 1 appl Polyethylene Glycol (Miralax) 17 gm PO BID [facility] Stop: 01/17/17 08:59 Last Admin: 11/21/16 09:43 Dose: 17 gm Vitamin D (Vitamin D) 400 iu PO DAILY [facility] Stop: 01/17/17 08:59 Last Admin: 11/21/16 09:42 Dose: 400 iu General: alert HEENT: NC/AT, PERRLA Neck: Supple Cardiovascular: RRR, Normal S1, Normal S2, without murmur Abdomen: soft non-tender, non-distended, positive bowel sound - Procedures Procedures: Procedures Procedure Code Date INSERT INDWELLING CATH 57.94 08/21/08 INSERT TEMP BLADDER CATH 44703 08/21/08 Internal Medicine Assmt/Plan - Assessment Assessment: Fever Sepsis - Plan Plan: [facility] EVAL MONITOR FOR FEVER IVABX CBC/BMP IN AM IVF FOR HYDRATION
[2016-11-22 06:07] LABS: % BASOPHILS 0.9 % (0.0-2.0); % EOSINOPHILS 5.8 % (0.0-5.0); % LYMPHOCYTES 16.8 % (20.0-50.0); % MONOCYTES 6.8 % (2.0-10.0); % NEUTROPHILS 69.7 % (40.0-80.0); HEMOGLOBIN 9.8 gm/dL (13.2-17.3); MEAN CELL VOLUME 80.2 fl (80-99); MEAN CORPUSCULAR HEMOGLOBIN 26.1 pg (26.0-30.0); MEAN CORPUSCULAR HGB CONC 32.5 pg (28.0-36.0); MEAN PLATELET VOLUME 7.2 fl; NEUTROPHILE ABSOLUTE 6.6 Th/cmm (1.8-8.0); PLATELET COUNT 503 Th/cmm (150-400); RED BLOOD COUNT 3.74 Mil/cmm (4.30-5.70); RED CELL DISTRIBUTION WIDTH 15.6 % (11.5-20.0); WHITE BLOOD COUNT 9.6 Th/cmm (4.8-10.8)
[2016-11-22] MEDS: POLYETHYLENE GLYCOL 3350 17 GM PACK PO SCH ×2 (09:02→16:52)
[2016-11-22] MEDS: Multivitamin w/ Minerals Tab PO SCH (09:02)
[2016-11-22] MEDS: Zinc Oxide Ointment 60 gm TP SCH ×2 (09:03→16:53)
[2016-11-22 09:12] LABS: ANION GAP 16.8 (7.0-16.0); BUN - UREA NITROGEN 12 mg/dL (7-25); BUN/CREATININE RATIO 8.6; CALCIUM SERUM 9.4 mg/dL (8.6-10.3); CARBON DIOXIDE 16.5 mEq/L (21.0-31.0); CHLORIDE 112 mEq/L (98-107); CREATININE - SERUM 1.4 mg/dL (0.7-1.3); GLUCOSE 112 mg/dL (70-105); POTASSIUM SERUM 4.3 mEq/L (3.5-5.1); SODIUM SERUM 141 mEq/L (136-145)
[2016-11-22] MEDS: D5-0.45NS 1,000 ML IV SCH (12:15)
--- NOTE | 2016-11-22 16:26 | Internal Medicine Prog Note ---
Internal Medicine Subjective - Subjective Patient seen and examined:: with staff, chart reviewed Patient is:: awake, non-verbal Patient Complaints of:: congestion Per staff patient is:: no adverse event, confused Internal Medicine Objective - Results Result Diagrams: 11/22/16 05:30 11/22/16 05:30 Recent Labs: Laboratory Last Values WBC 9.6 Th/cmm (4.8-10.8) 11/22/16 05:30 RBC 3.74 Mil/cmm (4.30-5.70) L 11/22/16 05:30 Hgb 9.8 gm/dL (13.2-17.3) L 11/22/16 05:30 Hct 30.0 % (39.0-49.0) L 11/22/16 05:30 MCV 80.2 fl (80-99) 11/22/16 05:30 MCH 26.1 pg (26.0-30.0) 11/22/16 05:30 MCHC Differential 32.5 pg (28.0-36.0) 11/22/16 05:30 RDW 15.6 % (11.5-20.0) 11/22/16 05:30 Plt Count 503 Th/cmm (150-400) H 11/22/16 05:30 MPV 7.2 fl 11/22/16 05:30 Neutrophils % 69.7 % (40.0-80.0) 11/22/16 05:30 Lymphocytes % 16.8 % (20.0-50.0) L 11/22/16 05:30 Monocytes % 6.8 % (2.0-10.0) 11/22/16 05:30 Eosinophils % 5.8 % (0.0-5.0) H 11/22/16 05:30 Basophils % 0.9 % (0.0-2.0) 11/22/16 05:30 Sodium 141 mEq/L (136-145) 11/22/16 05:30 Potassium 4.3 mEq/L (3.5-5.1) 11/22/16 05:30 Chloride 112 mEq/L (98-107) H 11/22/16 05:30 Carbon Dioxide 16.5 mEq/L (21.0-31.0) L 11/22/16 05:30 Anion Gap 16.8 (7.0-16.0) H 11/22/16 05:30 BUN 12 mg/dL (7-25) 11/22/16 05:30 Creatinine 1.4 mg/dL (0.7-1.3) H 11/22/16 05:30 Est GFR ( Amer) > 60.0 ml/min 11/22/16 05:30 Est GFR (Non-Af Amer) 57.7 ml/min 11/22/16 05:30 BUN/Creatinine Ratio 8.6 11/22/16 05:30 Glucose 112 mg/dL (70-105) H 11/22/16 05:30 Calcium 9.4 mg/dL (8.6-10.3) 11/22/16 05:30 Urine Source [place] 11/18/16 01:00 Urine Color YELLOW 11/18/16 01:00 Urine Clarity HAZY (CLEAR) 11/18/16 01:00 Urine pH 6.0 11/18/16 01:00 Ur Specific [place] 1.020 (1.005-1.030) 11/18/16 01:00 Urine Protein >300 mg/dL (NEGATIVE) H 11/18/16 01:00 Urine Glucose (UA) NEGATIVE mg/dL (NEGATIVE) 11/18/16 01:00 Urine Ketones NEGATIVE mg/dL (NEGATIVE) 11/18/16 01:00 Urine Blood LARGE (NEGATIVE) H 11/18/16 01:00 Urine Nitrate NEGATIVE (NEGATIVE) 11/18/16 01:00 Urine Bilirubin NEGATIVE (NEGATIVE) 11/18/16 01:00 Urine Urobilinogen 0.2 E.U./dL (0.2 - 1.0) 11/18/16 01:00 Ur Leukocyte Esterase SMALL (NEGATIVE) H 11/18/16 01:00 Urine RBC >100 /hpf (0-5) H 11/18/16 01:00 Urine WBC >100 /hpf (0-5) H 11/18/16 01:00 Ur Epithelial Cells FEW /lpf (FEW) 11/18/16 01:00 Urine Bacteria MODERATE /hpf (NONE SEEN) 11/18/16 01:00 - Physical Exam Vitals and I&O: Vital Signs Temp 98.6 F 11/22/16 04:00 Pulse 82 11/22/16 09:04 Resp 19 11/22/16 04:00 BP 163/83 11/22/16 09:04 Pulse Ox 98 11/22/16 04:00 Intake & Output 11/21/16 11/22/16 11/22/16 18:59 06:59 18:59 Intake Total 900 150 100 Output Total 950 Balance 900 -800 100 Intake: Intake, IV Amount 100 100 100 Piperacillin Sodium/ 100 100 100 Tazobact 4.5 gm In Sodium Chloride 0.9% 100 ml @ 100 mls/hr IV Q8HR [facility] Rx #:[id number] Oral 800 50 Output: Urine 950 Other: # Voids 2 # Bowel Movements 2 Stool Characteristics Soft Formed Active Medications: Current Medications Acetaminophen (Tylenol 650mg Supp) 650 mg RC Q4HR PRN PRN Reason: Pain or Fever >101 Stop: 01/17/17 00:18 Last Admin: 11/20/16 09:11 Dose: 650 mg Acetaminophen/Hydrocodone Bitart ([place] 5mg/325mg) 1 tab PO Q4H PRN PRN Reason: Pain (Moderate) Stop: 01/17/17 00:18 Last Admin: 11/19/16 19:56 Dose: 1 tab Al Hydrox/Mg Hydrox/Simethicone (Maalox) 30 ml PO Q6HR PRN PRN Reason: Constipation Stop: 01/17/17 00:21 Amlodipine Besylate (Norvasc) 5 mg PO DAILY [facility] Stop: 01/17/17 08:59 Last Admin: 11/22/16 09:04 Dose: 5 mg Baclofen (Lioresal) 10 mg PO QID [facility] Stop: 01/17/17 08:59 Last Admin: 11/22/16 12:39 Dose: 10 mg Bisacodyl (Dulcolax 10 Mg Supp) 10 mg RC DAILY PRN PRN Reason: Constipation Stop: 01/17/17 00:18 Calcium Carbonate (Os-Tam) 500 mg PO TID [facility] Stop: 01/17/17 08:59 Last Admin: 11/22/16 09:02 Dose: 500 mg Famotidine (Pepcid) 20 mg PO BID [facility] Stop: 01/17/17 08:59 Last Admin: 11/22/16 09:02 Dose: 20 mg Guaifenesin/Dextromethorphan (Robitussin Dm) 10 ml PO Q8HR PRN PRN Reason: Cough Stop: 01/18/17 17:28 Last Admin: 11/20/16 09:11 Dose: 10 ml Dextrose/Sodium Chloride (D5-0.45ns) 1,000 mls @ 80 mls/hr IV .[id number] [facility] Stop: 01/17/17 00:29 Last Admin: 11/22/16 12:15 Dose: 80 mls/hr Piperacillin Sod/Tazobactam (Sod 4.5 gm/ Sodium Chloride) 100 mls @ 100 mls/hr IV Q8HR [facility] Stop: 01/17/17 01:59 Last Admin: 11/22/16 12:14 Dose: 100 mls/hr Magnesium Hydroxide (Milk Of Magnesia) 30 ml PO Q72H PRN PRN Reason: Constipation Stop: 01/17/17 00:18 Metoprolol Tartrate (Lopressor) 50 mg PO BID [facility] Stop: 01/17/17 08:59 Last Admin: 11/22/16 09:03 Dose: 50 mg Miscellaneous (Vte Chemical Prophylaxis Screen/ Admission) 1 ea MC PRN PRN PRN Reason: PROTOCOL Stop: 01/17/17 13:08 Ondansetron HCl (Zofran) 4 mg IV Q8H PRN PRN Reason: Nausea / Vomiting Stop: 01/17/17 00:21 Petrolatum (Zinc Oxide) 1 appl TP BID [facility] Stop: 01/17/17 08:59 Last Admin: 11/22/16 09:03 Dose: 1 appl Polyethylene Glycol (Miralax) 17 gm PO BID [facility] Stop: 01/17/17 08:59 Last Admin: 11/22/16 09:02 Dose: 17 gm Vitamin D (Vitamin D) 400 iu PO DAILY [facility] Stop: 01/17/17 08:59 Last Admin: 11/22/16 09:02 Dose: 400 iu General: weak, lethargic, demented HEENT: NC/AT, PERRLA Neck: Supple Lungs: congested Cardiovascular: RRR, Normal S1, Normal S2 Abdomen: soft non-tender, globular Extremities: excoriation, contracture Neurological: no change - Procedures Procedures: Procedures Procedure Code Date INSERT INDWELLING CATH 57.94 08/21/08 INSERT TEMP BLADDER CATH [id number] 08/21/08 Internal Medicine Assmt/Plan - Assessment Assessment: Fever Sepsis uti cp mr ri - Plan Plan: cont on iv abx cont on iv hyfration will check culture will refer to [facility] andres rn
[2016-11-23] MEDS: Multivitamin w/ Minerals Tab PO SCH (09:32)
[2016-11-23] MEDS: POLYETHYLENE GLYCOL 3350 17 GM PACK PO SCH (09:33)
[2016-11-23] MEDS: Zinc Oxide Ointment 60 gm TP SCH (09:34)
[2016-11-23] MEDS: D5-0.45NS 1,000 ML IV SCH (13:11)
--- NOTE | 2016-11-23 13:45 | Internal Medicine Prog Note ---
Internal Medicine Subjective - Subjective Service Date: 11/23/16 Patient seen and examined:: with staff Patient is:: awake Per staff patient is:: no adverse event Internal Medicine Objective - Results Result Diagrams: 11/22/16 05:30 11/22/16 05:30 Recent Labs: Laboratory Last Values WBC 9.6 Th/cmm (4.8-10.8) 11/22/16 05:30 RBC 3.74 Mil/cmm (4.30-5.70) L 11/22/16 05:30 Hgb 9.8 gm/dL (13.2-17.3) L 11/22/16 05:30 Hct 30.0 % (39.0-49.0) L 11/22/16 05:30 MCV 80.2 fl (80-99) 11/22/16 05:30 MCH 26.1 pg (26.0-30.0) 11/22/16 05:30 MCHC Differential 32.5 pg (28.0-36.0) 11/22/16 05:30 RDW 15.6 % (11.5-20.0) 11/22/16 05:30 Plt Count 503 Th/cmm (150-400) H 11/22/16 05:30 MPV 7.2 fl 11/22/16 05:30 Neutrophils % 69.7 % (40.0-80.0) 11/22/16 05:30 Lymphocytes % 16.8 % (20.0-50.0) L 11/22/16 05:30 Monocytes % 6.8 % (2.0-10.0) 11/22/16 05:30 Eosinophils % 5.8 % (0.0-5.0) H 11/22/16 05:30 Basophils % 0.9 % (0.0-2.0) 11/22/16 05:30 Sodium 141 mEq/L (136-145) 11/22/16 05:30 Potassium 4.3 mEq/L (3.5-5.1) 11/22/16 05:30 Chloride 112 mEq/L (98-107) H 11/22/16 05:30 Carbon Dioxide 16.5 mEq/L (21.0-31.0) L 11/22/16 05:30 Anion Gap 16.8 (7.0-16.0) H 11/22/16 05:30 BUN 12 mg/dL (7-25) 11/22/16 05:30 Creatinine 1.4 mg/dL (0.7-1.3) H 11/22/16 05:30 Est GFR ( Amer) > 60.0 ml/min 11/22/16 05:30 Est GFR (Non-Af Amer) 57.7 ml/min 11/22/16 05:30 BUN/Creatinine Ratio 8.6 11/22/16 05:30 Glucose 112 mg/dL (70-105) H 11/22/16 05:30 Calcium 9.4 mg/dL (8.6-10.3) 11/22/16 05:30 Urine Source [place] 11/18/16 01:00 Urine Color YELLOW 11/18/16 01:00 Urine Clarity HAZY (CLEAR) 11/18/16 01:00 Urine pH 6.0 11/18/16 01:00 Ur Specific [place] 1.020 (1.005-1.030) 11/18/16 01:00 Urine Protein >300 mg/dL (NEGATIVE) H 11/18/16 01:00 Urine Glucose (UA) NEGATIVE mg/dL (NEGATIVE) 11/18/16 01:00 Urine Ketones NEGATIVE mg/dL (NEGATIVE) 11/18/16 01:00 Urine Blood LARGE (NEGATIVE) H 11/18/16 01:00 Urine Nitrate NEGATIVE (NEGATIVE) 11/18/16 01:00 Urine Bilirubin NEGATIVE (NEGATIVE) 11/18/16 01:00 Urine Urobilinogen 0.2 E.U./dL (0.2 - 1.0) 11/18/16 01:00 Ur Leukocyte Esterase SMALL (NEGATIVE) H 11/18/16 01:00 Urine RBC >100 /hpf (0-5) H 11/18/16 01:00 Urine WBC >100 /hpf (0-5) H 11/18/16 01:00 Ur Epithelial Cells FEW /lpf (FEW) 11/18/16 01:00 Urine Bacteria MODERATE /hpf (NONE SEEN) 11/18/16 01:00 - Physical Exam Vitals and I&O: Vital Signs Temp 97.6 F 11/23/16 12:13 Pulse 93 11/23/16 12:13 Resp 18 11/23/16 12:13 BP 97/71 11/23/16 12:13 Pulse Ox 97 11/23/16 12:13 Intake & Output 11/22/16 11/23/16 11/23/16 18:59 06:59 18:59 Intake Total 1700 1100 100 Output Total 1200 Balance 500 1100 100 Intake: Intake, IV Amount 200 1100 100 D5-0.45NS 1,000 ml @ 80 1000 mls/hr IV .[id number] [facility] Rx #:[id number] Piperacillin Sodium/ 200 100 100 Tazobact 4.5 gm In Sodium Chloride 0.9% 100 ml @ 100 mls/hr IV Q8HR [facility] Rx #:[id number] Oral 1500 Output: Urine 1200 Other: Stool Characteristics Soft Soft Formed Formed Active Medications: Current Medications Acetaminophen (Tylenol 650mg Supp) 650 mg RC Q4HR PRN PRN Reason: Pain or Fever >101 Stop: 01/17/17 00:18 Last Admin: 11/20/16 09:11 Dose: 650 mg Acetaminophen/Hydrocodone Bitart ([place] 5mg/325mg) 1 tab PO Q4H PRN PRN Reason: Pain (Moderate) Stop: 01/17/17 00:18 Last Admin: 11/19/16 19:56 Dose: 1 tab Al Hydrox/Mg Hydrox/Simethicone (Maalox) 30 ml PO Q6HR PRN PRN Reason: Constipation Stop: 01/17/17 00:21 Amlodipine Besylate (Norvasc) 5 mg PO DAILY [facility] Stop: 01/17/17 08:59 Last Admin: 11/23/16 09:32 Dose: 5 mg Baclofen (Lioresal) 10 mg PO QID [facility] Stop: 01/17/17 08:59 Last Admin: 11/23/16 13:03 Dose: 10 mg Bisacodyl (Dulcolax 10 Mg Supp) 10 mg RC DAILY PRN PRN Reason: Constipation Stop: 01/17/17 00:18 Calcium Carbonate (Os-Tam) 500 mg PO TID [facility] Stop: 01/17/17 08:59 Last Admin: 11/23/16 13:03 Dose: 500 mg Famotidine (Pepcid) 20 mg PO BID [facility] Stop: 01/17/17 08:59 Last Admin: 11/23/16 09:31 Dose: 20 mg Guaifenesin/Dextromethorphan (Robitussin Dm) 10 ml PO Q8HR PRN PRN Reason: Cough Stop: 01/18/17 17:28 Last Admin: 11/20/16 09:11 Dose: 10 ml Dextrose/Sodium Chloride (D5-0.45ns) 1,000 mls @ 80 mls/hr IV .[id number] [facility] Stop: 01/17/17 00:29 Last Admin: 11/23/16 13:11 Dose: 80 mls/hr Piperacillin Sod/Tazobactam (Sod 4.5 gm/ Sodium Chloride) 100 mls @ 100 mls/hr IV Q8HR [facility] Stop: 01/17/17 01:59 Last Admin: 11/23/16 13:03 Dose: 100 mls/hr Magnesium Hydroxide (Milk Of Magnesia) 30 ml PO Q72H PRN PRN Reason: Constipation Stop: 01/17/17 00:18 Metoprolol Tartrate (Lopressor) 50 mg PO BID [facility] Stop: 01/17/17 08:59 Last Admin: 11/23/16 09:31 Dose: 50 mg Miscellaneous (Vte Chemical Prophylaxis Screen/ Admission) 1 ea MC PRN PRN PRN Reason: PROTOCOL Stop: 01/17/17 13:08 Ondansetron HCl (Zofran) 4 mg IV Q8H PRN PRN Reason: Nausea / Vomiting Stop: 01/17/17 00:21 Petrolatum (Zinc Oxide) 1 appl TP BID [facility] Stop: 01/17/17 08:59 Last Admin: 11/23/16 09:34 Dose: 1 appl Polyethylene Glycol (Miralax) 17 gm PO BID [facility] Stop: 01/17/17 08:59 Last Admin: 11/23/16 09:33 Dose: 17 gm Vitamin D (Vitamin D) 400 iu PO DAILY [facility] Stop: 01/17/17 08:59 Last Admin: 11/22/16 09:02 Dose: 400 iu General: alert HEENT: NC/AT, PERRLA Neck: Supple Lungs: CTAB Cardiovascular: RRR, Normal S1, Normal S2, without murmur Abdomen: soft non-tender, non-distended, positive bowel sound Neurological: no change - Procedures Procedures: Procedures Procedure Code Date INSERT INDWELLING CATH 57.94 08/21/08 INSERT TEMP BLADDER CATH [id number] 08/21/08 Internal Medicine Assmt/Plan - Assessment Assessment: Fever Sepsis - Plan Plan: [facility] EVAL MONITOR FOR FEVER IVABX CBC/BMP IN AM IVF FOR HYDRATION
--- NOTE | 2016-12-21 03:02 | Discharge Summary ---
Dictating for Dr. Doni Bhagat. FINAL DIAGNOSES: Fever and sepsis. HISTORY OF PRESENT ILLNESS: This 46-year-old male resident of [facility] brought to [facility] for a day history of fever of 102.5. The patient was recently at [facility] where he had extracorporeal shockwave lithotripsy and urological surgery and right flank incision. After the patient had that surgery ____ the patient started to develop a fever. PHYSICAL EXAMINATION: GENERAL: The patient is well developed, well nourished, in no acute distress. VITAL SIGNS: Stable. HEENT: Head is normocephalic and atraumatic. NECK: Supple. No mass. LUNGS: Clear. CARDIOVASCULAR: Heart regular rate and rhythm. ABDOMEN: Soft, nontender and nondistended. HOSPITAL COURSE: During the hospital stay, the patient was admitted to medical/surgical unit. The patient was kept on IV fluids for hydration, also IV antibiotics of Zosyn. The patient's CBC, BMP were being monitored and was stable. Due to continuation of IV therapy, the patient was transferred to [facility]. CONDITION UPON DISCHARGE: Fair. DISPOSITION: [facility]. JOB# [id number]
== END 2016-11-23 16:45 | DRG 871 ==
LOC: ER 23:30 → MSI 11-18 00:32
PROVIDERS: ADMIT Internal Medicine; ATTEND Internal Medicine
DX: A41.9 Sepsis, unspecified organism (principal); J18.9 Pneumonia, unspecified organism; N39.0 Urinary tract infection, site not specified; I10 Essential (primary) hypertension; G80.9 Cerebral palsy, unspecified; M81.0 Age-related osteoporosis without current pathological fracture; G40.909 Epilepsy, unspecified, not intractable, without status epilepticus; F79 Unspecified intellectual disabilities; Z98.890 Other specified postprocedural states; Z88.8 Allergy status to other drugs, medicaments and biological substances
CPT/HCPCS: 36415-UA; 71010-TC; 80048-TC; 81001-TC; 85025-TC; 87086-90; J1644; J2543; J7030; Z7610

== ENCOUNTER 2017-08-19 19:03 | Inpatient (IN) | payer MEDICARE, MEDICAID ==
[2017-08-19] MEDS ORDERED: Maalox 30 mL Cup PO PRN (19:43)
[2017-08-19] MEDS ORDERED: Guaifenesin DM 10 ML UDC PO PRN (19:48)
[2017-08-19] MEDS ORDERED: Hydrocodone/APAP 5mg/325mg Tab PO PRN (19:48)
[2017-08-19] MEDS ORDERED: Magnesium Hydroxide (MOM) 30 mL UDC PO PRN (19:48)
[2017-08-19] MEDS ORDERED: ROSUVASTATIN CALCIUM 10 MG PO SCH (21:00)
[2017-08-19 21:32] VITALS: BP 162/98
[2017-08-20 06:33] LABS: % BASOPHILS 0.3 % (0.0-2.0); % EOSINOPHILS 3.5 % (0.0-5.0); % MONOCYTES 5.6 % (2.0-10.0); % NEUTROPHILS 69.6 % (40.0-80.0); MEAN CELL VOLUME 88.1 fl (80-99); MEAN CORPUSCULAR HEMOGLOBIN 29.3 pg (26.0-30.0); MEAN CORPUSCULAR HGB CONC 33.2 pg (28.0-36.0); MEAN PLATELET VOLUME 6.4 fl; NEUTROPHILE ABSOLUTE 4.9 Th/cmm (1.8-8.0); RED BLOOD COUNT 5.41 Mil/cmm (4.30-5.70); RED CELL DISTRIBUTION WIDTH 14.8 % (11.5-20.0)
[2017-08-20 06:40] LABS: HEMOGLOBIN 15.8 gm/dL (12-16)
[2017-08-20 06:41] LABS: HEMATOCRIT 47.6 % (41.0-60); PLATELET COUNT 213 Th/cmm (150-400)
[2017-08-20 07:06] LABS: ALKALINE PHOSPHATASE 143 U/L (34-104); BILIRUBIN,TOTAL 0.6 mg/dL (0.3-1.0); BUN - UREA NITROGEN 17 mg/dL (7-25); BUN/CREATININE RATIO 12.1; CALCIUM SERUM 9.3 mg/dL (8.6-10.3); CARBON DIOXIDE 26.4 mEq/L (21.0-31.0); CHLORIDE 105 mEq/L (98-107); CREATININE - SERUM 1.4 mg/dL (0.7-1.3); GLUCOSE 99 mg/dL (70-105); MAGNESIUM 1.9 mg/dL (1.9-2.7); POTASSIUM SERUM 4.4 mEq/L (3.5-5.1); SGOT 41 U/L (13-39); SGPT/ALT 57 U/L (7-52); SODIUM SERUM 137 mEq/L (136-145)
[2017-08-20 07:19] LABS: PROTHROMBIN TIME (TEST) 10.4 SECONDS (9.5-11.5)
[2017-08-20 07:38] LABS: TSH 2.48 uIU/ml (0.34-5.60)
[2017-08-20] MEDS: POLYETHYLENE GLYCOL 3350 17 GM PACK PO SCH ×2 (08:28→17:00)
[2017-08-20] MEDS ORDERED: Multivitamin w/ Minerals Tab PO SCH (09:00)
[2017-08-20] MEDS: Zinc Oxide Ointment 60 gm TP SCH ×2 (09:08→17:00)
[2017-08-20] MEDS ORDERED: Probiotic Screen MC PRN (11:00)
--- NOTE | 2017-08-20 14:34 | Internal Medicine Prog Note ---
Internal Medicine Subjective - Subjective Service Date: 08/20/17 ([id number] [facility] dictated) Internal Medicine Objective - Results Result Diagrams: 08/20/17 06:19 08/20/17 06:19 Recent Labs: Laboratory Last Values WBC 7.0 Th/cmm (4.8-10.8) D 08/20/17 06:19 RBC 5.41 Mil/cmm (4.30-5.70) 08/20/17 06:19 Hgb 15.8 gm/dL (12-16) D 08/20/17 06:19 Hct 47.6 % (41.0-60) D 08/20/17 06:19 MCV 88.1 fl (80-99) 08/20/17 06:19 MCH 29.3 pg (26.0-30.0) 08/20/17 06:19 MCHC Differential 33.2 pg (28.0-36.0) 08/20/17 06:19 RDW 14.8 % (11.5-20.0) 08/20/17 06:19 Plt Count 213 Th/cmm (150-400) D 08/20/17 06:19 MPV 6.4 fl 08/20/17 06:19 Neutrophils % 69.6 % (40.0-80.0) 08/20/17 06:19 Lymphocytes % 21.0 % (20.0-50.0) 08/20/17 06:19 Monocytes % 5.6 % (2.0-10.0) 08/20/17 06:19 Eosinophils % 3.5 % (0.0-5.0) 08/20/17 06:19 Basophils % 0.3 % (0.0-2.0) 08/20/17 06:19 PT 10.4 SECONDS (9.5-11.5) 08/20/17 06:19 INR 1.00 (0.5-1.4) 08/20/17 06:19 PTT (Actin FS) 27.2 SECONDS (26.0-38.0) 08/20/17 06:19 Sodium 137 mEq/L (136-145) 08/20/17 06:19 Potassium 4.4 mEq/L (3.5-5.1) 08/20/17 06:19 Chloride 105 mEq/L (98-107) 08/20/17 06:19 Carbon Dioxide 26.4 mEq/L (21.0-31.0) 08/20/17 06:19 Anion Gap 10.0 (7.0-16.0) 08/20/17 06:19 BUN 17 mg/dL (7-25) 08/20/17 06:19 Creatinine 1.4 mg/dL (0.7-1.3) H 08/20/17 06:19 Est GFR ( Amer) > 60.0 ml/min (>90) 08/20/17 06:19 Est GFR (Non-Af Amer) 57.5 ml/min 08/20/17 06:19 BUN/Creatinine Ratio 12.1 08/20/17 06:19 Glucose 99 mg/dL (70-105) 08/20/17 06:19 Calcium 9.3 mg/dL (8.6-10.3) 08/20/17 06:19 Magnesium 1.9 mg/dL (1.9-2.7) 08/20/17 06:19 Total Bilirubin 0.6 mg/dL (0.3-1.0) 08/20/17 06:19 AST 41 U/L (13-39) H 08/20/17 06:19 ALT 57 U/L (7-52) H 08/20/17 06:19 Alkaline Phosphatase 143 U/L (34-104) H 08/20/17 06:19 Ammonia 38 umol/L (16-53) 08/20/17 06:19 Total Protein 7.3 gm/dL (6.0-8.3) 08/20/17 06:19 Albumin 3.6 gm/dL (4.2-5.5) L 08/20/17 06:19 Globulin 3.7 gm/dL 08/20/17 06:19 Albumin/Globulin Ratio 1.0 (1.0-1.8) 08/20/17 06:19 TSH 2.48 uIU/ml (0.34-5.60) 08/20/17 06:19 - Physical Exam Vitals and I&O: Vital Signs Temp 97.3 F 08/20/17 12:01 Pulse 78 08/20/17 12:01 Resp 18 08/20/17 12:01 BP 113/72 08/20/17 12:01 Pulse Ox 97 08/20/17 12:01 Intake & Output 08/19/17 08/20/17 08/20/17 18:59 06:59 18:59 Intake Total 200 Balance 200 Intake: Intake, IV Amount 200 Piperacillin Sodium/ 200 Tazobact 4.5 gm In Sodium Chloride 0.9% 100 ml @ 100 mls/hr IV Q8HR [facility] Rx #:[id number] Active Medications: Current Medications Acetaminophen (Tylenol) 650 mg PO Q4HR PRN PRN Reason: Pain or Fever >101 Stop: 10/18/17 19:42 Acetaminophen/Hydrocodone Bitart ([place] 5mg/325mg) 1 tab PO Q4H PRN PRN Reason: Pain (Moderate) Stop: 10/18/17 19:47 Al Hydrox/Mg Hydrox/Simethicone (Maalox) 30 ml PO Q6HR PRN PRN Reason: Constipation Stop: 10/18/17 19:42 Amlodipine Besylate (Norvasc) 5 mg PO DAILY [facility] Stop: 10/19/17 08:59 Last Admin: 08/20/17 08:28 Dose: 5 mg Baclofen (Lioresal) 10 mg PO QID [facility] Stop: 10/18/17 20:59 Last Admin: 08/20/17 12:35 Dose: 10 mg Bisacodyl (Dulcolax 10 Mg Supp) 10 mg RC DAILY PRN PRN Reason: Constipation Stop: 10/18/17 19:42 Calcium Carbonate (Os-Tam) 500 mg PO TIDWM [facility] Stop: 10/18/17 20:59 Last Admin: 08/20/17 12:26 Dose: 500 mg Famotidine (Pepcid) 20 mg PO BID [facility] Stop: 10/19/17 08:59 Last Admin: 08/20/17 08:28 Dose: 20 mg Guaifenesin/Dextromethorphan (Robitussin Dm) 10 ml PO Q8HR PRN PRN Reason: Cough Stop: 10/18/17 19:47 Piperacillin Sod/Tazobactam (Sod 4.5 gm/ Sodium Chloride) 100 mls @ 100 mls/hr IV Q8HR [facility] Stop: 10/18/17 20:59 Last Admin: 08/20/17 12:35 Dose: 100 mls/hr Lactobacillus Rhamnosus (Culturelle) 1 each PO DAILY [facility] Stop: 10/20/17 08:59 Magnesium Hydroxide (Milk Of Magnesia) 30 ml PO Q72H PRN PRN Reason: Constipation Stop: 10/18/17 19:47 Metoprolol Tartrate (Lopressor) 50 mg PO BID [facility] Stop: 10/19/17 08:59 Last Admin: 08/20/17 08:31 Dose: 50 mg Miscellaneous (Probiotic Screen) 1 ea MC PRN PRN PRN Reason: PROTOCOL Stop: 10/19/17 10:59 Ondansetron HCl (Zofran) 4 mg IV Q8H PRN PRN Reason: Nausea / Vomiting Stop: 10/18/17 19:45 Petrolatum (Zinc Oxide) 1 appl TP BID [facility] Stop: 10/19/17 08:59 Last Admin: 08/20/17 09:08 Dose: 1 appl Polyethylene Glycol (Miralax) 17 gm PO BID [facility] Stop: 10/19/17 08:59 Last Admin: 08/20/17 08:28 Dose: 17 gm Simvastatin (Zocor) 10 mg PO HS [facility] Stop: 10/18/17 20:59 Last Admin: 08/19/17 21:48 Dose: 10 mg Vitamin D (Vitamin D) 400 iu PO DAILY [facility] Stop: 10/19/17 08:59 Last Admin: 08/20/17 08:32 Dose: 400 iu - Procedures Procedures: Procedures Procedure Code Date INSERT INDWELLING CATH 57.94 08/21/08 INSERT TEMP BLADDER CATH [id number] 08/21/08 Internal Medicine Assmt/Plan - Assessment Assessment: ACUTE UTI MDRO HTN SPASTIC QUADRIPLEGIA OSTEOPOROSIS
--- NOTE | 2017-08-20 17:24 | History & Physical ---
ADMIT DATE: 08/20/2017 Dictated for: Dr. Doni Bhagat. CHIEF COMPLAINT: UTI. HISTORY OF PRESENT ILLNESS: This is a 47-year-old male, who is a resident ____ [facility] [place], who is a direct admission from [place], was brought here to [facility] for UTI with MDRO. Upon examination, the patient is a poor historian, unable to answer any questions. The patient is nonverbal. PAST MEDICAL HISTORY: Cerebral palsy, spastic quadriplegia, osteoporosis, hypertension, history of bilateral nephrolithiasis, recurrent UTI, mitral valve regurgitation, gastritis, renal calculi, sinus tachycardia, sepsis, aspiration pneumonia, hypoxic respiratory failure, pleural effusion, cardiomyopathy, profound visual impairment. PAST SURGICAL HISTORY: PEG. SOCIAL HISTORY: The patient is a senior living resident, requiring 24-hour nursing care. FAMILY HISTORY: Noncontributory. REVIEW OF SYSTEMS: Unable to obtain, the patient is nonverbal. PHYSICAL EXAMINATION: GENERAL: This is a middle aged male, who is awake, nonverbal, no apparent distress. VITAL SIGNS: Temperature 97.3, heart rate 78, blood pressure 113/72, respirations 18, O2 of 97%. HEENT: Head; normocephalic, atraumatic. NECK: Supple. No mass. LUNGS: Few rhonchi. HEART: Regular rhythm. ABDOMEN: Soft, nontender. LABORATORY DATA: WBC 7.0, H and H of ____, platelet 213. Sodium 137, potassium 4.4, chloride 105, BUN ____. ASSESSMENT: Urinary tract infection with multidrug resistant organisms, cerebral palsy, spastic quadriplegia, osteoporosis, hypertension, bilateral nephrolithiasis, renal calculi, visual impairment. PLAN: The patient to be admitted to the med/surg unit. The patient will be kept on IV fluids for hydration. The patient will be on IV antibiotics of Zosyn. Monitor the patient's CBC and BMP. We will continue to monitor this patient. JOB# [id number]
[2017-08-21] MEDS: Lactobacillus Rhamnosus 10 Billion CFU Capsule PO SCH ×2 (08:45→08:59)
[2017-08-21] MEDS: POLYETHYLENE GLYCOL 3350 17 GM PACK PO SCH ×3 (08:47→17:28)
[2017-08-21] MEDS: Zinc Oxide Ointment 60 gm TP SCH (09:00)
--- NOTE | 2017-08-21 13:51 | Internal Medicine Prog Note ---
Internal Medicine Subjective - Subjective Service Date: 08/21/17 Patient seen and examined:: with staff Patient is:: awake Per staff patient has:: tolerating meds Internal Medicine Objective - Results Result Diagrams: 08/20/17 06:19 08/20/17 06:19 Recent Labs: Laboratory Last Values WBC 7.0 Th/cmm (4.8-10.8) D 08/20/17 06:19 RBC 5.41 Mil/cmm (4.30-5.70) 08/20/17 06:19 Hgb 15.8 gm/dL (12-16) D 08/20/17 06:19 Hct 47.6 % (41.0-60) D 08/20/17 06:19 MCV 88.1 fl (80-99) 08/20/17 06:19 MCH 29.3 pg (26.0-30.0) 08/20/17 06:19 MCHC Differential 33.2 pg (28.0-36.0) 08/20/17 06:19 RDW 14.8 % (11.5-20.0) 08/20/17 06:19 Plt Count 213 Th/cmm (150-400) D 08/20/17 06:19 MPV 6.4 fl 08/20/17 06:19 Neutrophils % 69.6 % (40.0-80.0) 08/20/17 06:19 Lymphocytes % 21.0 % (20.0-50.0) 08/20/17 06:19 Monocytes % 5.6 % (2.0-10.0) 08/20/17 06:19 Eosinophils % 3.5 % (0.0-5.0) 08/20/17 06:19 Basophils % 0.3 % (0.0-2.0) 08/20/17 06:19 PT 10.4 SECONDS (9.5-11.5) 08/20/17 06:19 INR 1.00 (0.5-1.4) 08/20/17 06:19 PTT (Actin FS) 27.2 SECONDS (26.0-38.0) 08/20/17 06:19 Sodium 137 mEq/L (136-145) 08/20/17 06:19 Potassium 4.4 mEq/L (3.5-5.1) 08/20/17 06:19 Chloride 105 mEq/L (98-107) 08/20/17 06:19 Carbon Dioxide 26.4 mEq/L (21.0-31.0) 08/20/17 06:19 Anion Gap 10.0 (7.0-16.0) 08/20/17 06:19 BUN 17 mg/dL (7-25) 08/20/17 06:19 Creatinine 1.4 mg/dL (0.7-1.3) H 08/20/17 06:19 Est GFR ( Amer) > 60.0 ml/min (>90) 08/20/17 06:19 Est GFR (Non-Af Amer) 57.5 ml/min 08/20/17 06:19 BUN/Creatinine Ratio 12.1 08/20/17 06:19 Glucose 99 mg/dL (70-105) 08/20/17 06:19 Calcium 9.3 mg/dL (8.6-10.3) 08/20/17 06:19 Magnesium 1.9 mg/dL (1.9-2.7) 08/20/17 06:19 Total Bilirubin 0.6 mg/dL (0.3-1.0) 08/20/17 06:19 AST 41 U/L (13-39) H 08/20/17 06:19 ALT 57 U/L (7-52) H 08/20/17 06:19 Alkaline Phosphatase 143 U/L (34-104) H 08/20/17 06:19 Ammonia 38 umol/L (16-53) 08/20/17 06:19 Total Protein 7.3 gm/dL (6.0-8.3) 08/20/17 06:19 Albumin 3.6 gm/dL (4.2-5.5) L 08/20/17 06:19 Globulin 3.7 gm/dL 08/20/17 06:19 Albumin/Globulin Ratio 1.0 (1.0-1.8) 08/20/17 06:19 TSH 2.48 uIU/ml (0.34-5.60) 08/20/17 06:19 - Physical Exam Vitals and I&O: Vital Signs Temp 98.2 F 08/21/17 12:00 Pulse 105 08/21/17 12:00 Resp 18 08/21/17 12:00 BP 121/73 08/21/17 12:00 Pulse Ox 98 08/21/17 12:00 Intake & Output 08/20/17 08/21/17 08/21/17 18:59 06:59 18:59 Intake Total 900 400 Balance 900 400 Weight (lbs) 145 lb 145 lb Intake: Intake, IV Amount 100 400 Piperacillin Sodium/ 100 200 Tazobact 4.5 gm In Sodium Chloride 0.9% 100 ml @ 100 mls/hr IV Q8HR [facility] Rx #:[id number] Oral 800 Other: # Voids 3 # Bowel Movements 1 Active Medications: Current Medications Acetaminophen (Tylenol) 650 mg PO Q4HR PRN PRN Reason: Pain or Fever >101 Stop: 10/18/17 19:42 Acetaminophen/Hydrocodone Bitart ([place] 5mg/325mg) 1 tab PO Q4H PRN PRN Reason: Pain (Moderate) Stop: 10/18/17 19:47 Al Hydrox/Mg Hydrox/Simethicone (Maalox) 30 ml PO Q6HR PRN PRN Reason: Constipation Stop: 10/18/17 19:42 Amlodipine Besylate (Norvasc) 5 mg PO DAILY [facility] Stop: 10/19/17 08:59 Last Admin: 08/21/17 08:58 Dose: Not Given Baclofen (Lioresal) 10 mg PO QID [facility] Stop: 10/18/17 20:59 Last Admin: 08/21/17 12:57 Dose: 10 mg Bisacodyl (Dulcolax 10 Mg Supp) 10 mg RC DAILY PRN PRN Reason: Constipation Stop: 10/18/17 19:42 Calcium Carbonate (Os-Tam) 500 mg PO TIDWM [facility] Stop: 10/18/17 20:59 Last Admin: 08/21/17 12:57 Dose: 500 mg Famotidine (Pepcid) 20 mg PO BID [facility] Stop: 10/19/17 08:59 Last Admin: 08/21/17 08:46 Dose: 20 mg Guaifenesin/Dextromethorphan (Robitussin Dm) 10 ml PO Q8HR PRN PRN Reason: Cough Stop: 10/18/17 19:47 Piperacillin Sod/Tazobactam (Sod 4.5 gm/ Sodium Chloride) 100 mls @ 100 mls/hr IV Q8HR [facility] Stop: 10/18/17 20:59 Last Admin: 08/21/17 12:56 Dose: 100 mls/hr Lactobacillus Rhamnosus (Culturelle) 1 each PO DAILY [facility] Stop: 10/20/17 08:59 Last Admin: 08/21/17 08:59 Dose: Not Given Magnesium Hydroxide (Milk Of Magnesia) 30 ml PO Q72H PRN PRN Reason: Constipation Stop: 10/18/17 19:47 Metoprolol Tartrate (Lopressor) 50 mg PO BID [facility] Stop: 10/19/17 08:59 Last Admin: 08/21/17 08:59 Dose: Not Given Miscellaneous (Probiotic Screen) 1 ea MC PRN PRN PRN Reason: PROTOCOL Stop: 10/19/17 10:59 Ondansetron HCl (Zofran) 4 mg IV Q8H PRN PRN Reason: Nausea / Vomiting Stop: 10/18/17 19:45 Petrolatum (Zinc Oxide) 1 appl TP BID [facility] Stop: 10/19/17 08:59 Last Admin: 08/21/17 09:00 Dose: 1 appl Polyethylene Glycol (Miralax) 17 gm PO BID [facility] Stop: 10/19/17 08:59 Last Admin: 08/21/17 08:59 Dose: Not Given Simvastatin (Zocor) 10 mg PO HS [facility] Stop: 10/18/17 20:59 Last Admin: 08/20/17 21:16 Dose: 10 mg Vitamin D (Vitamin D) 400 iu PO DAILY [facility] Stop: 10/19/17 08:59 Last Admin: 08/21/17 09:00 Dose: Not Given General: weak HEENT: NC/AT, PERRLA Lungs: CTAB Cardiovascular: RRR, Normal S1, Normal S2, without murmur Abdomen: soft, non-tender, non-distended, positive bowel sound Neurological: other (NONVERBAL) - Procedures Procedures: Procedures Procedure Code Date INSERT INDWELLING CATH 57.94 08/21/08 INSERT TEMP BLADDER CATH 79386 08/21/08 Internal Medicine Assmt/Plan - Assessment Assessment: ACUTE UTI MDRO HTN SPASTIC QUADRIPLEGIA OSTEOPOROSIS - Plan Plan: continue ivantibiotics ivf for hydration patient to be transferred to [facility] tomorrow.
[2017-08-22 06:11] LABS: FOLIC ACID >20.0 ng/mL (>3.0)
== END 2017-08-21 18:47 | DRG 689 ==
LOC: MSI 19:03
PROVIDERS: ADMIT Internal Medicine; ATTEND Internal Medicine
DX: N39.0 Urinary tract infection, site not specified (principal); G80.0 Spastic quadriplegic cerebral palsy; I42.9 Cardiomyopathy, unspecified; M81.0 Age-related osteoporosis without current pathological fracture; I10 Essential (primary) hypertension; N20.0 Calculus of kidney; H54.7 Unspecified visual loss; Z16.24 Resistance to multiple antibiotics; Z93.1 Gastrostomy status
CPT/HCPCS: 36415-UA; 80053-TC; 82140-TC; 82607-90; 82746-90; 83735-TC; 84443-TC; 85025-TC; 85610-TC; J2543; Z7610

== ENCOUNTER 2018-11-21 16:54 | Inpatient (IN) | payer MEDICARE, MEDICAID ==
[2018-11-21] MEDS ORDERED: Sodium Chloride 0.9% 1,000 ML IV ONE (18:40)
--- NOTE | 2018-11-21 18:45 | ED Physician Chart ---
ED Chief Complaint/HPI - Patient Information Date Seen:: 11/21/18 Time Seen:: 17:20 Chief Complaint:: Abdominal Pain History of Present Illness:: onset x 2 days of N/V/D, Flank Pain, and Abdominal Pain; no report of LOC, ALOC , AMS, H/As, S/T, neck pain, C/P, SOB, A/C, fever, chills, or urinary s/s Allergies:: Allergies Allergy/AdvReac Type Severity Reaction Status Date / Time docusate Allergy Verified 11/17/16 23:45 Vitals:: Vital Signs - 8 hr 11/21/18 17:23 Temp 99.1 F HR 124 RR 17 BP 163/103 O2 Sat % 97 Historian:: Patient, EMS Review:: Nurse's Note Reviewed, Old Chart Reviewed, EMS run form Reviewed ED Review of Systems - Review of Systems General/Constitutional: Fever, No chills, No weight loss, Weakness, No diaphoresis, No edema, No loss of appetite Skin: No skin lesions, No rash, No bruising Head: No headache, No light-headedness Eyes: No loss of vision, No pain, No diplopia ENT: No earache, No nasal drainage, No sore throat, No tinnitus Neck: No neck pain, No swelling, No thyromegaly, No stiffness, No mass noted Cardio Vascular: No chest pain, No palpitations, No PND, No orthopnea, No edema Pulmonary: No SOB, No cough, No sputum, No wheezing GI: Nausea, Vomiting, Diarrhea, Pain, No melena, No hematochezia, No constipation, No hematemesis G/U: No dysuria, No frequency, No hematuria, No nacturia Musculoskeletal: No bone or joint pain, No back pain, No muscle pain Endocrine: No polyuria, No polydipsia Psychiatric: No prior psych history, No depression, No anxiety, No suicidal ideation, No homicidal ideation, No auditory hallucination, No visual hallucination Hematopoietic: No bruising, No lymphadenopathy Allergic/Immuno: No urticaria, No angioedema Neurological: No syncope, No focal symptoms, Weakness, No paresthesia, No headache, No seizure, No dizziness, Confusion, No vertigo ED Past Medical History - Past Medical History Obtainable: Yes Past Medical History: HTN, CVA/TIA, Dyslipidemia, PUD/GERD, Renal stone, Dementia, Other (CP; Osteoporosis; ) Family History: HTN Social History: Non Smoker, No Alcohol, No Drug Use, Single, Care Facility Surgical History: Pacemaker Psychiatricy History: Dementia Medication: Reviewed Family Medical History - Family Member Mother History Unknown: Yes Ethnicity: Unknown Living Status: Unknown ED Physical Exam - Physical Examination General/Constitutional: Awake, Well-developed, well-nourished, Alert, No distress, GCS 15, Non-toxic appearing, Ambulatory Head: Atraumatic Eyes: Lids, conjuctiva normal, PERRL, EOMI Skin: Nl inspection, No rash, No skin lesions, No ecchymosis, Well hydrated, No lymphadenopathy ENMT: External ears, nose nl, TM canals nl, Nasal exam nl, Lips, teeth, gums nl , Oropharynx nl, Tonsils nl Neck: Nontender, Full ROM w/o pain, No JVD, No nuchal rigidity, No bruit, No mass, No stridor Respiratory: Nl effort/Exclusion, Clear to Auscultation, No Wheeze/Rhonchi/Rales Cardio Vascular: RRR, No murmur, gallop, rubs, NL S1 S2, Carotid/Femoral/Distal pulses equal bilaterally GI: No tenderness/rebounding/guarding, No organomegaly, No hernia, Normal BS's, Nondistended, No mass/bruits, No McBurney tenderness Other GI comments:: no pulsatile masses : No CVA tenderness Extremities: No tenderness or effusion, Full ROM, normal strength in all extremities, No edema, Normal digits & nails Neuro/Psych: DTR's symmetric, Normal sensory exam, Normal motor strength, Judgement/insight normal, Mood normal, Normal gait, No focal deficits Other Neuro/Psych comments:: Disoriented and Confused Misc: Normal back, No paraspinal tenderness ED Labs/Radiology/EKG Results - Lab Results Comments:: Reviewed - Radiology Results Comments:: + Hydronephrosis; Nephrolithiasis; Ureterolithiasis; Cholelithiasis/Gall Stones - EKG Interpretations EKG Time:: 19:23 Rate & Rhythm: 130; ST Comments:: non-specific st-t changes ED Septic Shock - . Is Septic Shock (SBP<90, OR Lactate>4 mmol\L) present?: No - <6hrs of presentation: Vital Signs: Vital Signs - 8 hr 11/21/18 17:23 Temp 99.1 F HR 124 RR 17 BP 163/103 O2 Sat % 97 ED Reassessment (Disposition) - Reassessment Reassessment Condition:: Improved - Diagnosis Diagnosis:: Abdominal Pain; Flank Pain; Nephrolithiasis; Ureterolithiasis; Hydronephrosis: Cholelithiasis; Fever; Tachycardia; Dehydration; Hypertension; Leukocytosis; Hyponatremia; Acidosis; Hypoalbuminemia; Elevated D-Dimer; Elevated BNP; ESRD; Hyperlipidemia; UTI; Sepsis - Aftercare/Follow up Instructions Aftercare/Follow-Up Instructions:: Counseled pt regarding lab results/diagnosis & need follow up, Counseled pt & family regarding lab results/diagnosis & need follow up - Patient Disposition Discharge/Transfer:: Acute Care w/in this hosp Accepting Physician:: Dr. Bhagat Time Called:: 1914 Time Responded:: 19:15 Admitted to:: Telemetry Spoke to:: Dr. Bhagat Admitting Medical Physician:: Dr. Bhagat Condition at Disposition:: Stable, Improved
[2018-11-21] MEDS ORDERED: NITROGLYCERIN OINT 2% 1 INCH PACKET TP STA (18:46)
[2018-11-21 19:09] LABS: % BASOPHILS 0.5 % (0.0-2.0); % MONOCYTES 10.8 % (2.0-10.0); % NEUTROPHILS 84.7 % (40.0-80.0); BASOPHILE ABSOLUTE 0.1 Th/cumm (0-0.2); EOSINOPHILE ABSOLUTE 0.1 Th/cmm (0.1-0.4); HEMATOCRIT 39.3 % (41.0-60); HEMOGLOBIN 12.7 gm/dL (12-16); LYMPHOCYTE ABSOLUTE 0.4 Th/cmm (1.5-3.0); MEAN CELL VOLUME 84.1 fl (80-99); MEAN CORPUSCULAR HEMOGLOBIN 27.2 pg (26.0-30.0); MEAN CORPUSCULAR HGB CONC 32.4 pg (28.0-36.0); MEAN PLATELET VOLUME 6.7 fl; MONOCYTE ABSOLUTE 1.3 Th/cmm (0.3-1.0); NEUTROPHILE ABSOLUTE 9.8 Th/cmm (1.8-8.0); PLATELET COUNT 191 Th/cmm (150-400); RED BLOOD COUNT 4.68 Mil/cmm (4.30-5.70); RED CELL DISTRIBUTION WIDTH 15.2 % (11.5-20.0); WHITE BLOOD COUNT 11.7 Th/cmm (4.8-10.8)
[2018-11-21 19:22] LABS: INR 0.94 (0.5-1.4); PROTHROMBIN TIME (TEST) 9.8 SECONDS (9.5-11.5)
[2018-11-21 19:35] LABS: ALB/GLOB RATIO 0.8 (1.0-1.8); ALBUMIN 3.2 gm/dL (4.2-5.5); ANION GAP 16.4 (7.0-16.0); BILIRUBIN,TOTAL 0.4 mg/dL (0.3-1.0); CARBON DIOXIDE 20.7 mEq/L (21.0-31.0); GFR AFRICAN-AMERICAN 15.6 ml/min (>90); GFR NON AFRICAN-AMERICAN 12.9 ml/min; POTASSIUM SERUM 4.1 mEq/L (3.5-5.1); TOTAL PROTEIN,SERUM 7.4 gm/dL (6.0-8.3)
[2018-11-21 19:36] LABS: AMYLASE SERUM 50 U/L (29-103); LIPASE 39 U/L (11-82)
[2018-11-21] MEDS ORDERED: NITROGLYCERIN OINT 2% 1 INCH PACKET TP ONE (19:37)
[2018-11-21 19:39] LABS: CREATININE - SERUM 5.1 mg/dL (0.7-1.3)
[2018-11-21 21:57] LABS: URINE SOURCE CLEAN C
[2018-11-21 22:05] LABS: URINE BILIRUBIN NEGATIVE (NEGATIVE); URINE BLOOD MODERATE (NEGATIVE); URINE GLUCOSE (UA) NEGATIVE (NEGATIVE); URINE KETONE NEGATIVE (NEGATIVE); URINE LEUKOCYTE ESTERASE MODERATE (NEGATIVE); URINE MICROSCOPIC INDICATED? YES; URINE NITRATE POSITIVE (NEGATIVE); URINE PH 8.5 (4.6 - 8.0); URINE PROTEIN >=300 mg/dL (NEGATIVE); URINE UROBILINOGEN 0.2 E.U./dL (0.2 - 1.0)
[2018-11-21 22:14] LABS: BAND NEUTROPHILE 0 % (0-10); LYMPHOCYTE 7 % (20-50); MONOCYTE 12 % (2-10); NEUTROPHILS 81 % (40-80)
[2018-11-21 22:16] LABS: URINE CLARITY HAZY (CLEAR); URINE COLOR YELLOW
[2018-11-21 22:25] LABS: URINE BACTERIA 1+ /hpf (NONE SEEN); URINE EPITHELIAL CELLS FEW /lpf (FEW)
[2018-11-21] MEDS ORDERED: cefTRIAXone 1 GM in Sodium Chloride 0.9% 50 ML IV ONE (22:30)
[2018-11-21] MEDS ORDERED: Fleet Enema 135 mL RC PRN (23:22)
[2018-11-21] MEDS ORDERED: Magnesium Hydroxide (MOM) 30 mL UDC PO PRN (23:22)
[2018-11-21] MEDS ORDERED: Albuterol Nebulizer 2.5mg/3mL HHN PRN (23:26)
--- NOTE | 2018-11-22 00:17 | History & Physical ---
ADMIT DATE: 11/21/2018 CHIEF COMPLAINT: Abdominal pain. HISTORY OF PRESENT ILLNESS: This is a 48-year-old male with history of kidney stone, cerebral palsy, mental retardation, spastic quadriplegia, hypertension, cardiomyopathy, and G-tube secondary to dysphagia, admitted secondary to history of abdominal discomfort with nausea and vomiting. The patient was evaluated in the ER, found to be in acute renal failure with elevated white count and with elevated heart rate as well. The patient is admitted for further management. The patient is transferred from ____. PAST MEDICAL HISTORY: As mentioned in the history of present illness. PAST SURGICAL HISTORY: Status post G-tube ____. ALLERGIES: SULFA. MEDICATIONS: Tylenol, amoxicillin, ____, [place], and multivitamins. At one time, the patient was on Macrobid, MiraLax, rosuvastatin, tramadol, baclofen, metoprolol, and multivitamins. FAMILY HISTORY: Noncontributory. SOCIAL HISTORY: The patient lives in a skilled nursing. The patient is requiring 24-hour total care. REVIEW OF SYSTEMS: This is limited secondary to the patient's current mental state. We will try to obtain more detailed review of systems by talking to family members, also we will try to get more information from the nursing staff at [facility], . PHYSICAL EXAMINATION: VITAL SIGNS: Blood pressure 142/88, respirations 20, pulse 114, temperature 100.4. GENERAL: Elderly male, contracted, chronically ill. NECK: Supple. LUNGS: Equal breath sounds with a few rhonchi. HEART: Regular rate and rhythm. HEART: Sinus tachycardia. Unable to appreciate any murmurs. ABDOMEN: Soft, globular. Positive G-tube. EXTREMITIES: Positive excoriation and contractures. NEUROLOGIC: Limited. LABORATORY DATA: WBC 11, hemoglobin 12, platelets 191. D-dimer is elevated at 3700. Sodium 135, potassium 4.1, BUN 6, creatinine 5.1, blood sugar is 145, bicarb is 21, alkaline phosphatase 72. BNP is 142. Albumin is 3.2. UA with 25 WBC, 1+ bacteria, moderate leukocytes. ASSESSMENT AND PLAN: Urinary tract infection, sepsis, acute renal failure, kidney stones, leukocytosis, metabolic acidosis, low albumin, cerebral palsy, mental retardation, spastic quadriplegia, hypertension, cardiomyopathy, hypercholesterolemia, status post PEG, elevated D-dimer. Continue the patient on oxygen and bronchodilator treatment. Continue aggressive IV hydration. Continue on broad-spectrum antibiotic. We will review the patient's CT of the abdomen and pelvis. We will start the patient on heparin prophylactically. We will titrate the patient's antihypertensive medication. We may consider a Urology consultation. We will continue to monitor the patient on the telemetry bed. JOB# [id number]
[2018-11-22] MEDS: D5-0.9%NS 1,000 ML IV SCH ×3 (02:31→12:18)
[2018-11-22 02:44] VITALS: BP 138/86
[2018-11-22] MEDS ORDERED: Piperacillin Sodium/Tazobact 2.25 gm Vial IV ONE (04:48)
[2018-11-22] MEDS: Piperacillin Sodium/Tazobact 2.25 GM in Sodium Chloride 0.9% 100 ML IV SCH ×3 (05:00→20:51)
[2018-11-22] MEDS: INSULIN ASPART, RECOMBINANT 100 UNITS/ML SUBQ SCH ×4 (06:38→21:02)
[2018-11-22 07:17] LABS: HEMATOCRIT 35.7 % (41.0-60); HEMOGLOBIN 11.6 gm/dL (12-16); MEAN CELL VOLUME 83.5 fl (80-99); MEAN CORPUSCULAR HEMOGLOBIN 27.1 pg (26.0-30.0); MEAN CORPUSCULAR HGB CONC 32.5 pg (28.0-36.0); MEAN PLATELET VOLUME 6.9 fl; PLATELET COUNT 163 Th/cmm (150-400); RED BLOOD COUNT 4.27 Mil/cmm (4.30-5.70)
[2018-11-22 07:24] LABS: ANION GAP 15.1 (7.0-16.0); CALCIUM SERUM 8.8 mg/dL (8.6-10.3); CARBON DIOXIDE 20.9 mEq/L (21.0-31.0); GFR AFRICAN-AMERICAN 15.9 ml/min (>90); GFR NON AFRICAN-AMERICAN 13.2 ml/min
[2018-11-22 08:20] LABS: BAND NEUTROPHILE 1 % (0-10); EOSINOPHIL 1 % (0-5); LYMPHOCYTE 7 % (20-50); MONOCYTE 7 % (2-10); NEUTROPHILS 84 % (40-80); PLATELET ESTIMATE ADEQUATE (NORMAL)
--- NOTE | 2018-11-22 08:49 | Diagnostic Imaging Report ---
CT abdomen and pelvis without intravenous contrast Indication: Abdominal pain Comparison: CT abdomen and pelvis on 08/19/2015, Technique: Axial images were obtained from the lung bases to the bilateral proximal femurs without IV contrast. Coronal reconstructions were made. total DLP: 725, CTDI13.5 FINDINGS: Evaluation of the solid organs is limited due to lack of IV contrast. Exam is also limited due to motion. No focal hepatic lesions. Gallstones are noted. No focal splenic lesions. Calcification seen along the tail of the pancreatic region are probably related to splenic artery calcifications or chronic pancreatitis. No evidence of inflammatory changes surrounding the pancreas There is enlargement of the right kidney with numerous very large renal stones measuring up to 3 cm. There is severe right hydronephrosis with large stone seen along the collecting system including just proximal to the right ureteropelvic junction measuring up to 2 cm. There is also an additional 1.5 cm stone within the proximal one third of the right ureter. No stones seen distal to this point. Mild left renal atrophy is noted with moderate left hydronephrosis and numerous left renal stones including largest stones measuring 2 cm on the upper pole. There are also large stones seen along the ureteropelvic junction measuring up to 2.5 cm in combined dimension. There are also multiple adjacent stones seen within the mid to distal left ureter with largest stone measuring 1.3 cm. Left renal 2.6 cm cyst is noted. Left renal high density lesions are also noted measuring up to 1.1 cm which may present hemorrhagic cysts. Underdistended urinary bladder is seen with small stones seen along the posterior aspect. Mild urinary bladder wall thickening is noted. Mildly prominent prostate gland is seen with prostate gland calcifications. Moderate-stool is noted in the colon with marked air-filled loops of bowel seen along the anterior abdomen. Diverticulosis is noted without definite evidence of diverticulitis. Appendix is not well-visualized. Right perinephric inflammatory changes are seen extending along inferiorly along the right retroperitoneum with trace surrounding fluid. No evidence of the free abdominal fluid or free abdominal air. Mild atherosclerosis is noted. Degenerative changes spine are noted with scoliosis. IMPRESSION: Enlarged right kidney with numerous large stones. There are also large stones within the right renal collecting system just proximal to the ureteropelvic junction measuring up to 2 cm. There is also an additional 1.5 cm stone within the proximal one third of the right ureter. Associated moderate to severe right hydronephrosis is noted with enlargement of right kidney and right perinephric inflammatory changes and trace right perinephric fluid. Additional numerous left-sided renal stones with left renal atrophy. There are also multiple stones seen along the left UPJ measuring up to 2.5 cm in combined length. There are additional numerous adjacent stones seen within the left mid to distal ureter the largest measuring up to 1.3 cm. There is moderate left hydronephrosis which is probably chronic. Additional small stones within the urinary bladder mild urine bladder wall thickening. Left renal cysts and high density left renal lesions probably represent hemorrhagic cysts, ultrasound would further clarify Mildly prominent prostate gland Moderate stool with multiple gas-filled loops of bowel which may be due to mild ileus. Gallstones. Diverticulosis. Mild atherosclerosis. Please refer to above for details.
--- NOTE | 2018-11-22 09:22 | Diagnostic Imaging Report ---
CT Chest without IV contrast HISTORY: Elevated d-dimer, due to patient's elevated creatinine levels, IV contrast was not administered. Per emergency room doctor request, CT chest without IV contrast was performed COMPARISON: Chest x-ray and CT abdomen and pelvis performed the same day. Technique: Axial images were obtained from the base of the neck to the upper abdomen without administration of IV contrast. Coronal reconstructions were made. Total DLP 410, CTD I 11.4 Findings: Evaluation of the mediastinum is limited due to lack of IV contrast. No evidence of mediastinal lymphadenopathy. Heart size normal. No evidence of an aneurysm. No pericardial effusion. Evaluation of the lungs demonstrates hypoventilatory and atelectatic lung changes with minimal bibasal consolidative and passive atelectatic changes, right greater than left. No pleural effusions. The osseous structures demonstrate no acute abnormalities. IMPRESSION: Hypoventilatory and atelectatic lung changes with minimal bibasal consolidative changes and right basal passive atelectasis. Note due to lack of IV contrast assessment for pulmonary embolus was not able to be performed. As CT chest PE study was not able to be performed due to patient's elevated creatinine, nuclear medicine VQ scan may be obtained for further assessment if there is continued concern for pulmonary embolus.
[2018-11-22] MEDS: Multivitamin w/ Minerals Tab PO SCH (09:50)
[2018-11-22] MEDS: Hydrocodone/APAP 5mg/325mg Tab PO PRN (09:53)
--- NOTE | 2018-11-22 10:16 | Diagnostic Imaging Report ---
Portable chest x-ray History: Pain Allowing for portable technique the heart size is normal. No focal pulmonary parenchymal processes. No hilar or mediastinal abnormalities. Impression: No acute abnormalities.
--- NOTE | 2018-11-22 15:46 | Consultation ---
DATE OF CONSULTATION: UROLOGY CONSULT REASON FOR CONSULTATION: Seen for bilateral kidney stones, bilateral ureteral stones, bilateral hydronephrosis, renal failure and sepsis. HISTORY OF PRESENT ILLNESS: The patient is a 48-year-old male, resident of a long-term secondary to cerebral palsy versus stroke and functional quadriplegic. He also has mental retardation by history. He was admitted with nausea, vomiting, fever, diarrhea and abdominal pain. He was found to have elevated BUN and creatinine and white count and bilateral stones with hydronephrosis. The patient is unable to provide any history since he is nonverbal. PAST MEDICAL HISTORY: Consists of stone disease. He also has hypertension and cardiomyopathy. He has had a pacemaker placed. He has hypercholesteremia. He used to have a G-tube that has now been removed. ALLERGIES: SULFA. PAST SURGICAL HISTORY: G-tube placement and then subsequent removal most likely. HOME MEDICATIONS: Tylenol, Dulcolax, calcium supplement, vitamin D3 supplement, enemas as needed, Vicodin as needed, nitrofurantoin seems to be prophylactic 100 daily, tramadol, baclofen, Pepcid, magnesium hydroxide, metoprolol. REVIEW OF SYSTEMS: He has come in with history of fever. We do not know about weight loss. He has had vomiting, diarrhea and abdominal pain. No chest pain, coughing, shortness of breath. There is no record of seizures or headaches. No sore throat or vision changes that we can determine easily. We do not know about urinary symptoms since he is unable to talk and he has a Chakraborty catheter. Again, nobody knows if it was placed in the ER or he came with it. 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 PHYSICAL EXAMINATION: GENERAL: On exam, he is awake but he cannot communicate. VITAL SIGNS: His temperature is 98.4, heart rate 113, blood pressure 137/86, fever recorded yesterday at 100.4 at one time. HEAD AND NECK: Normocephalic. Trachea central. Pupils equal and reactive. No jaundice. Thyroid and lymph nodes not palpable. Carotid bruit absent. CHEST: Symmetrical. LUNGS: Clear. No rales or rhonchi. HEART: Sounds normal in sinus rhythm. No murmur. ABDOMEN: Soft, generalized mild tenderness. No guarding, rebound or rigidity. Both flanks mildly tender to percussion. GENITALIA: Normal male. Chakraborty catheter draining scant amount of urine but clear. EXTREMITIES: Abducted at the hips. Flexed at the knees. No pedal edema or lymphadenopathy. NEUROLOGIC: Quadriplegic. LABORATORY AND DIAGNOSTIC DATA: White count was 11.7 yesterday, today it is 9; hemoglobin 11.6, normal platelets. There was one band today and a left shift to the white count. PT and PTT are normal. D-dimer elevated to 3700. Sodium 139, potassium 4, CO2 20.9, BUN 65, creatinine 5.0. Liver functions mostly normal, mildly elevated alkaline phosphatase. Urine showed moderate amount of blood and nitrites, moderate amount of leukocyte esterase, 10-25 white cells, no significant red cells or bacteria. Cultures are pending. CT scan of the abdomen and pelvis shows multiple stones in both kidneys around the UPJ, they are large and up to 2 cm and another one in the right ureter, 1.5 cm stone in the proximal one-third of the right ureter causing the hydronephrosis, severe and perinephric inflammatory changes. On the left side, there is atrophy of the kidney, multiple stones around the UPJ measuring up to 2.5 cm and numerous stones in the left mid to distal ureter up to 1.3 cm with moderate hydronephrosis. There are small stones in the urinary bladder as well. There were gallstones and diverticulosis. Chest x-ray shows no acute changes. Chest CT shows hypoventilation but cannot comment on the possibility of pulmonary embolus. There is no mention of a pacemaker, so that is an inaccurate history most likely. IMPRESSION: The patient has: 1. Bilateral multiple stones with left atrophic kidney and multiple stones in the left ureter and a big one in the right ureter, all of which will require multiple operations to get him stone free. With his medical history, I do not think this is humane and practical recommendation and I would personally recommend treating sepsis as well as possible and allow nature to take its course and the renal failure to progress unless the family wants to have him go through multiple operations including starting with nephrostomies and then ureteroscopies and multiple ESWLs, etc. to get him stone free. This would have to be done at a tertiary center or [facility] since the stone burden is extremely large. Given his medical condition, I am not sure if this is even feasible or the right thing to do. A palliative measure would be to put nephrostomies in both kidneys, which would temporize the situation, control the sepsis and improve the renal failure to some extent. Then, we will be faced with ongoing care of the nephrostomies, which tend to fall out very easily and need frequent replacements and more invasive procedures. 2. Quadriplegic secondary to cerebral palsy or stroke, details unavailable, bedridden and noncommunicable. 3. The patient is able to tolerate and take his own oral diet, which is a positive indicator, but he is unable to take a lot of fluids and therefore we have kept a small amount of IV fluids going so that we hydrate him, but to not push him into congestive heart failure. JOB# [id number]
--- NOTE | 2018-11-22 15:48 | Internal Medicine Prog Note ---
Internal Medicine Subjective - Subjective Patient seen and examined:: with staff, chart reviewed Patient is:: awake, non-verbal, non-interactive, in bed Per staff patient has:: no adverse event, no episodes of fall, tolerating meds Internal Medicine Objective - Results Result Diagrams: 11/22/18 06:22 11/22/18 06:22 Recent Labs: Laboratory Last Values WBC 9.0 Th/cmm (4.8-10.8) 11/22/18 06:22 RBC 4.27 Mil/cmm (4.30-5.70) L 11/22/18 06:22 Hgb 11.6 gm/dL (12-16) L 11/22/18 06:22 Hct 35.7 % (41.0-60) L 11/22/18 06:22 MCV 83.5 fl (80-99) 11/22/18 06:22 MCH 27.1 pg (26.0-30.0) 11/22/18 06:22 MCHC Differential 32.5 pg (28.0-36.0) 11/22/18 06:22 RDW 16.0 % (11.5-20.0) 11/22/18 06:22 Plt Count 163 Th/cmm (150-400) 11/22/18 06:22 MPV 6.9 fl 11/22/18 06:22 Add Manual Diff YES 11/22/18 06:22 Neutrophils % 84.7 % (40.0-80.0) H 11/21/18 19:00 Band Neutrophils % 1 % (0-10) 11/22/18 06:22 Lymphocytes % 3.0 % (20.0-50.0) L 11/21/18 19:00 Monocytes % 10.8 % (2.0-10.0) H 11/21/18 19:00 Eosinophils % 1.0 % (0.0-5.0) 11/21/18 19:00 Basophils % 0.5 % (0.0-2.0) 11/21/18 19:00 Neutrophils (Manual) 84 % (40-80) H 11/22/18 06:22 Lymphocytes 7 % (20-50) L 11/22/18 06:22 Monocytes 7 % (2-10) 11/22/18 06:22 Eosinophils 1 % (0-5) 11/22/18 06:22 Platelet Estimate ADEQUATE (NORMAL) 11/22/18 06:22 PT 9.8 SECONDS (9.5-11.5) 11/21/18 19:00 INR 0.94 (0.5-1.4) 11/21/18 19:00 PTT (Actin FS) 31.0 SECONDS (26.0-38.0) 11/21/18 19:00 D-Dimer 3700 ng/mL (100-400) H 11/21/18 19:00 Sodium 139 mEq/L (136-145) 11/22/18 06:22 Potassium 4.0 mEq/L (3.5-5.1) 11/22/18 06:22 Chloride 107 mEq/L (98-107) 11/22/18 06:22 Carbon Dioxide 20.9 mEq/L (21.0-31.0) L 11/22/18 06:22 Anion Gap 15.1 (7.0-16.0) 11/22/18 06:22 BUN 65 mg/dL (7-25) H 11/22/18 06:22 Creatinine 5.0 mg/dL (0.7-1.3) H* 11/22/18 06:22 Est GFR ( Amer) 15.9 ml/min (>90) 11/22/18 06:22 Est GFR (Non-Af Amer) 13.2 ml/min 11/22/18 06:22 BUN/Creatinine Ratio 13.0 11/22/18 06:22 Glucose 150 mg/dL (70-105) H 11/22/18 06:22 POC Glucose 222 MG/DL (70 - 105) H 11/22/18 12:01 Whole Bld Lactic Acid 0.59 mmol/L (0.60-1.99) L 11/21/18 19:00 Calcium 8.8 mg/dL (8.6-10.3) 11/22/18 06:22 Total Bilirubin 0.4 mg/dL (0.3-1.0) 11/21/18 19:00 AST 18 U/L (13-39) 11/21/18 19:00 ALT 20 U/L (7-52) 11/21/18 19:00 Alkaline Phosphatase 172 U/L (34-104) H 11/21/18 19:00 Ammonia 40 umol/L (16-53) 11/22/18 06:22 Creatine Kinase 85 U/L (30-223) 11/21/18 19:00 Troponin I 0.02 ng/mL (0.01-0.05) 11/21/18 19:00 B-Natriuretic Peptide 142.0 pg/mL (5.0-100.0) H 11/21/18 19:00 Total Protein 7.4 gm/dL (6.0-8.3) 11/21/18 19:00 Albumin 3.2 gm/dL (4.2-5.5) L 11/21/18 19:00 Globulin 4.2 gm/dL 11/21/18 19:00 Albumin/Globulin Ratio 0.8 (1.0-1.8) L 11/21/18 19:00 Triglycerides 219 mg/dL (<150) H 11/21/18 19:00 Cholesterol 73 mg/dL (<200) 11/21/18 19:00 LDL Cholesterol Direct 18 mg/dL (75-193) L 11/21/18 19:00 HDL Cholesterol 12 mg/dL (23-92) L 11/21/18 19:00 Amylase 50 U/L (29-103) 11/21/18 19:00 Lipase 39 U/L (11-82) 11/21/18 19:00 TSH 0.89 uIU/ml (0.34-5.60) 11/22/18 06:22 Urine Source CLEAN C 11/21/18 21:26 Urine Color YELLOW 11/21/18 21:26 Urine Clarity HAZY (CLEAR) 11/21/18 21:26 Urine pH 8.5 (4.6 - 8.0) 11/21/18 21:26 Ur Specific [place] 1.020 (1.005-1.030) 11/21/18 21:26 Urine Protein >=300 mg/dL (NEGATIVE) 11/21/18 21:26 Urine Glucose (UA) NEGATIVE mg/dL (NEGATIVE) 11/21/18 21:26 Urine Ketones NEGATIVE mg/dL (NEGATIVE) 11/21/18 21:26 Urine Blood MODERATE (NEGATIVE) H 11/21/18 21:26 Urine Nitrate POSITIVE (NEGATIVE) H 11/21/18 21: Urine Bilirubin NEGATIVE (NEGATIVE) 11/21/18 21:26 Urine Urobilinogen 0.2 E.U./dL (0.2 - 1.0) 11/21/18 21:26 Ur Leukocyte Esterase MODERATE (NEGATIVE) H 11/21/18 21:26 Urine RBC 2-5 /hpf (0-5) H 11/21/18 21:26 Urine WBC 10-25 /hpf (0-5) H 11/21/18 21:26 Ur Epithelial Cells FEW /lpf (FEW) 11/21/18 21:26 Urine Bacteria 1+ /hpf (NONE SEEN) H 11/21/18 21:26 - Physical Exam Vitals and I&O: Vital Signs Temp 98.4 F 11/22/18 11:35 Pulse 113 11/22/18 11:35 Resp 20 11/22/18 11:35 BP 137/86 11/22/18 11:35 Pulse Ox 98 11/22/18 11:35 Intake & Output 11/21/18 11/22/18 11/22/18 18:59 06:59 18:59 Intake Total 160 1000 Output Total 300 Balance -140 1000 Weight (lbs) 60.781 kg 61.28 kg Intake: Intake, IV Amount 100 1000 D5-0.9%Ns 1,000 ml @ 125 1000 mls/hr IV .Q8H [facility] Rx#: [id number] Piperacillin Sodium/ 100 Tazobact 2.25 gm In Sodium Chloride 0.9% 100 ml @ 100 mls/hr IV Q8HR [facility] Rx#:[id number] Oral 60 Output: Urine 300 Other: Weight Source Standing scale Bedscale Active Medications: Current Medications Acetaminophen (Tylenol 650mg Supp) 650 mg RC Q4HR PRN PRN Reason: MILD PAIN OR TEMP >100 Stop: 01/20/19 23:21 Acetaminophen/Hydrocodone Bitart ([place] 5mg/325mg) 1 tab PO Q4H PRN PRN Reason: MODERATE PAIN (LEVEL 4-6) Stop: 01/20/19 23:21 Last Admin: 11/22/18 09:53 Dose: 1 tab Albuterol Sulfate (Albuterol 2.5mg/3ml Neb Ud) 2.5 mg HHN Q2HRT PRN PRN Reason: Shortness of Breath or Wheeze Stop: 01/20/19 23:25 Baclofen (Lioresal) 10 mg PO QID [facility] Stop: 01/21/19 08:59 Last Admin: 11/22/18 12:18 Dose: 10 mg Famotidine (Pepcid) 20 mg PO DAILY@0730 [facility] Stop: 01/21/19 07:29 Last Admin: 11/22/18 06:39 Dose: 20 mg Heparin Sodium (Porcine) (Heparin) 5,000 units SUBQ Q12HR [facility] Stop: 01/21/19 08:59 Last Admin: 11/22/18 09:52 Dose: 5,000 units Piperacillin Sod/Tazobactam (Sod 2.25 gm/ Sodium Chloride) 100 mls @ 100 mls/ hr IV Q8HR [facility] Stop: 01/21/19 04:59 Last Admin: 11/22/18 12:18 Dose: 100 mls/hr Dextrose/Sodium Chloride (D5-0.9%Ns) 1,000 mls @ 40 mls/hr IV .Q24H [facility] Stop: 01/21/19 11:44 Last Admin: 11/22/18 12:18 Dose: 40 mls/hr Insulin Aspart (Novolog) 0 units SUBQ ACHS [facility]; Protocol Stop: 01/21/19 07:29 Last Admin: 11/22/18 12:16 Dose: 2 units Loperamide HCl (Imodium) 4 mg PO PRN PRN PRN Reason: Loose Stools Stop: 01/20/19 23:21 Magnesium Hydroxide (Milk Of Magnesia) 30 ml PO Q72H PRN PRN Reason: Constipation Stop: 01/20/19 23:21 Metoprolol Tartrate (Lopressor) 50 mg PO BID [facility] Stop: 01/21/19 08:59 Last Admin: 11/22/18 09:50 Dose: 50 mg Ondansetron HCl (Zofran) 4 mg IV Q8H PRN PRN Reason: Nausea / Vomiting Stop: 01/20/19 23:26 Sodium Phosphate (Fleet Enema) 135 ml RC PRN PRN PRN Reason: IF DULCOLAX INEFFECTIVE Stop: 01/20/19 23:21 General: congested, demented HEENT: NC/AT, PERRLA, EOMI Neck: Supple, No JVD, No thyromegaly Lungs: congested, rales, ronchi Cardiovascular: RRR, Normal S1, Normal S2 Abdomen: soft, non-tender, globular, +GT Extremities: excoriation, contracture - Procedures Procedures: Procedures Procedure Code Date INSERT INDWELLING CATH 57.94 08/21/08 INSERT TEMP BLADDER CATH 21682 08/21/08 Internal Medicine Assmt/Plan - Assessment Assessment: ASSESSMENT AND PLAN: Urinary tract infection, sepsis, acute renal failure, kidney stones, leukocytosis, metabolic acidosis, low albumin, cerebral palsy, mental retardation, spastic quadriplegia, hypertension, cardiomyopathy, hypercholesterolemia, status post PEG, elevated D-dimer. - Plan Plan: PLAN: Continue the patient on oxygen and bronchodilator treatment. Continue aggressive IV hydration. Continue on broad-spectrum antibiotic. We will review the patient's CT of the abdomen and pelvis. We will start the patient on heparin prophylactically. We will titrate the patient's antihypertensive medication. We may consider a Urology consultation. We will continue to monitor the patient on the telemetry bed. will refer to dr meadows
[2018-11-23] MEDS: Piperacillin Sodium/Tazobact 2.25 GM in Sodium Chloride 0.9% 100 ML IV SCH ×3 (05:04→21:02)
[2018-11-23] MEDS: INSULIN ASPART, RECOMBINANT 100 UNITS/ML SUBQ SCH ×4 (06:39→21:27)
[2018-11-23 07:00] LABS: WHITE BLOOD COUNT 14.5 Th/cmm (4.8-10.8)
[2018-11-23 07:07] LABS: HEMATOCRIT 35.8 % (41.0-60); HEMOGLOBIN 11.8 gm/dL (12-16); MEAN CELL VOLUME 82.9 fl (80-99); MEAN CORPUSCULAR HEMOGLOBIN 27.4 pg (26.0-30.0); MEAN PLATELET VOLUME 6.4 fl; PLATELET COUNT 210 Th/cmm (150-400); RED BLOOD COUNT 4.32 Mil/cmm (4.30-5.70); RED CELL DISTRIBUTION WIDTH 15.9 % (11.5-20.0)
[2018-11-23 07:16] LABS: ANION GAP 15.1 (7.0-16.0); CALCIUM SERUM 8.7 mg/dL (8.6-10.3); GFR AFRICAN-AMERICAN 14.6 ml/min (>90); GFR NON AFRICAN-AMERICAN 12.1 ml/min; POTASSIUM SERUM 4.1 mEq/L (3.5-5.1)
[2018-11-23 07:31] LABS: BAND NEUTROPHILE 0 % (0-10); BASOPHIL 0 % (0-3); EOSINOPHIL 0 % (0-5); LYMPHOCYTE 6 % (20-50); MONOCYTE 3 % (2-10); NEUTROPHILS 91 % (40-80)
[2018-11-23] MEDS: Hydrocodone/APAP 5mg/325mg Tab PO PRN ×2 (08:35→14:06)
[2018-11-23] MEDS: Multivitamin w/ Minerals Tab PO SCH (08:35)
--- NOTE | 2018-11-23 08:42 | Diagnostic Imaging Report ---
Exam: Ultrasound examination deep venous circulation lower extremities. HISTORY: DVT Findings: Real-time ultrasound exam of the lower extremities performed multiple planes utilizing color Doppler technique. The study demonstrates normal compressibility and augmentation of deep venous system throughout. IMPRESSION: No evidence of deep venous thrombosis lower extremities bilaterally.
[2018-11-23 11:08] LABS: FOLIC ACID >20.0 ng/mL (>3.0)
[2018-11-23] MEDS: D5-0.9%NS 1,000 ML IV SCH (11:34)
[2018-11-23] MEDS ORDERED: Probiotic Screen MC PRN (14:44)
--- NOTE | 2018-11-23 15:57 | Internal Medicine Prog Note ---
Internal Medicine Subjective - Subjective Patient seen and examined:: with staff, chart reviewed Patient is:: awake, non-verbal, non-interactive, in bed Patient Complaints of:: other (per staff, abd distended) Per staff patient has:: no adverse event, no episodes of fall, tolerating meds Internal Medicine Objective - Results Result Diagrams: 11/23/18 06:46 11/23/18 06:46 Recent Labs: Laboratory Last Values WBC 14.5 Th/cmm (4.8-10.8) H 11/23/18 06:46 RBC 4.32 Mil/cmm (4.30-5.70) 11/23/18 06:46 Hgb 11.8 gm/dL (12-16) L 11/23/18 06:46 Hct 35.8 % (41.0-60) L 11/23/18 06:46 MCV 82.9 fl (80-99) 11/23/18 06:46 MCH 27.4 pg (26.0-30.0) 11/23/18 06:46 MCHC Differential 33.0 pg (28.0-36.0) 11/23/18 06:46 RDW 15.9 % (11.5-20.0) 11/23/18 06:46 Plt Count 210 Th/cmm (150-400) 11/23/18 06:46 MPV 6.4 fl 11/23/18 06:46 Add Manual Diff YES 11/23/18 06:46 Neutrophils % 84.7 % (40.0-80.0) H 11/21/18 19:00 Band Neutrophils % 0 % (0-10) 11/23/18 06:46 Lymphocytes % 3.0 % (20.0-50.0) L 11/21/18 19:00 Monocytes % 10.8 % (2.0-10.0) H 11/21/18 19:00 Eosinophils % 1.0 % (0.0-5.0) 11/21/18 19:00 Basophils % 0.5 % (0.0-2.0) 11/21/18 19:00 Neutrophils (Manual) 91 % (40-80) H 11/23/18 06:46 Lymphocytes 6 % (20-50) L 11/23/18 06:46 Monocytes 3 % (2-10) 11/23/18 06:46 Eosinophils 0 % (0-5) 11/23/18 06:46 Basophils 0 % (0-3) 11/23/18 06:46 Platelet Estimate ADEQUATE (NORMAL) 11/22/18 06:22 PT 9.8 SECONDS (9.5-11.5) 11/21/18 19:00 INR 0.94 (0.5-1.4) 11/21/18 19:00 PTT (Actin FS) 31.0 SECONDS (26.0-38.0) 11/21/18 19:00 D-Dimer 3700 ng/mL (100-400) H 11/21/18 19:00 Sodium 141 mEq/L (136-145) 11/23/18 06:46 Potassium 4.1 mEq/L (3.5-5.1) 11/23/18 06:46 Chloride 111 mEq/L (98-107) H 11/23/18 06:46 Carbon Dioxide 19.0 mEq/L (21.0-31.0) L 11/23/18 06:46 Anion Gap 15.1 (7.0-16.0) 11/23/18 06:46 BUN 67 mg/dL (7-25) H 11/23/18 06:46 Creatinine 5.4 mg/dL (0.7-1.3) H* 11/23/18 06:46 Est GFR ( Amer) 14.6 ml/min (>90) 11/23/18 06:46 Est GFR (Non-Af Amer) 12.1 ml/min 11/23/18 06:46 BUN/Creatinine Ratio 12.4 11/23/18 06:46 Glucose 153 mg/dL (70-105) H 11/23/18 06:46 POC Glucose 214 MG/DL (70 - 105) H 11/23/18 11:29 Whole Bld Lactic Acid 0.59 mmol/L (0.60-1.99) L 11/21/18 19:00 Calcium 8.7 mg/dL (8.6-10.3) 11/23/18 06:46 Total Bilirubin 0.4 mg/dL (0.3-1.0) 11/21/18 19:00 AST 18 U/L (13-39) 11/21/18 19:00 ALT 20 U/L (7-52) 11/21/18 19:00 Alkaline Phosphatase 172 U/L (34-104) H 11/21/18 19:00 Ammonia 40 umol/L (16-53) 11/22/18 06:22 Creatine Kinase 85 U/L (30-223) 11/21/18 19:00 Troponin I 0.02 ng/mL (0.01-0.05) 11/21/18 19:00 B-Natriuretic Peptide 142.0 pg/mL (5.0-100.0) H 11/21/18 19:00 Total Protein 7.4 gm/dL (6.0-8.3) 11/21/18 19:00 Albumin 3.2 gm/dL (4.2-5.5) L 11/21/18 19:00 Globulin 4.2 gm/dL 11/21/18 19:00 Albumin/Globulin Ratio 0.8 (1.0-1.8) L 11/21/18 19:00 Triglycerides 219 mg/dL (<150) H 11/21/18 19:00 Cholesterol 73 mg/dL (<200) 11/21/18 19:00 LDL Cholesterol Direct 18 mg/dL (75-193) L 11/21/18 19:00 HDL Cholesterol 12 mg/dL (23-92) L 11/21/18 19:00 Amylase 50 U/L (29-103) 11/21/18 19:00 Lipase 39 U/L (11-82) 11/21/18 19:00 Vitamin B12 569 pg/mL (232-1245) 11/22/18 06:22 Folic Acid >20.0 ng/mL (>3.0) 11/22/18 06:22 TSH 0.89 uIU/ml (0.34-5.60) 11/22/18 06:22 Urine Source CLEAN C 11/21/18 21:26 Urine Color YELLOW 11/21/18 21:26 Urine Clarity HAZY (CLEAR) 11/21/18 21:26 Urine pH 8.5 (4.6 - 8.0) 11/21/18 21:26 Ur Specific [place] 1.020 (1.005-1.030) 11/21/18 21:26 Urine Protein >=300 mg/dL (NEGATIVE) 11/21/18 21:26 Urine Glucose (UA) NEGATIVE mg/dL (NEGATIVE) 11/21/18 21: Urine Ketones NEGATIVE mg/dL (NEGATIVE) 11/21/18 21:26 Urine Blood MODERATE (NEGATIVE) H 11/21/18 21:26 Urine Nitrate POSITIVE (NEGATIVE) H 11/21/18 21:26 Urine Bilirubin NEGATIVE (NEGATIVE) 11/21/18 21:26 Urine Urobilinogen 0.2 E.U./dL (0.2 - 1.0) 11/21/18 21:26 Ur Leukocyte Esterase MODERATE (NEGATIVE) H 11/21/18 21:26 Urine RBC 2-5 /hpf (0-5) H 11/21/18 21:26 Urine WBC 10-25 /hpf (0-5) H 11/21/18 21:26 Ur Epithelial Cells FEW /lpf (FEW) 11/21/18 21: Urine Bacteria 1+ /hpf (NONE SEEN) H 11/21/18 21:26 - Physical Exam Vitals and I&O: Vital Signs Temp 99.4 F 11/23/18 12:00 Pulse 112 11/23/18 12:00 Resp 20 11/23/18 12:00 BP 157/99 11/23/18 12:00 Pulse Ox 99 11/23/18 12:00 Intake & Output 11/22/18 11/23/18 11/23/18 18:59 06:59 18:59 Intake Total 1600 932 438.667 Output Total 700 825 Balance 900 932 -386.333 Weight (lbs) 61.28 kg 63.049 kg Intake: Intake, IV Amount 1100 932 198.667 D5-0.9%Ns 1,000 ml @ 125 1000 mls/hr IV .Q8H [facility] Rx#: [id number] D5-0.9%Ns 1,000 ml @ 40 732 198.667 mls/hr IV .Q24H [facility] Rx#: [id number] Piperacillin Sodium/ 100 200 Tazobact 2.25 gm In Sodium Chloride 0.9% 100 ml @ 100 mls/hr IV Q8HR [facility] Rx#:[id number] Oral 500 240 Output: Urine 700 825 Other: # Bowel Movements 0 2 Stool Characteristics Soft Formed Liquid Brown Weight Source Bedscale Bedscale Active Medications: Current Medications Acetaminophen (Tylenol 650mg Supp) 650 mg RC Q4HR PRN PRN Reason: MILD PAIN OR TEMP >100 Stop: 01/20/19 23:21 Last Admin: 11/22/18 20:51 Dose: 650 mg Acetaminophen/Hydrocodone Bitart ([place] 5mg/325mg) 1 tab PO Q4H PRN PRN Reason: MODERATE PAIN (LEVEL 4-6) Stop: 01/20/19 23:21 Last Admin: 11/23/18 14:06 Dose: 1 tab Albuterol Sulfate (Albuterol 2.5mg/3ml Neb Ud) 2.5 mg HHN Q2HRT PRN PRN Reason: Shortness of Breath or Wheeze Stop: 01/20/19 23:25 Baclofen (Lioresal) 10 mg PO QID [facility] Stop: 01/21/19 08:59 Last Admin: 11/23/18 12:15 Dose: 10 mg Famotidine (Pepcid) 20 mg PO DAILY@0730 [facility] Stop: 01/21/19 07:29 Last Admin: 11/23/18 06:43 Dose: 20 mg Heparin Sodium (Porcine) (Heparin) 5,000 units SUBQ Q12HR [facility] Stop: 01/21/19 08:59 Last Admin: 11/23/18 08:37 Dose: 5,000 units Piperacillin Sod/Tazobactam (Sod 2.25 gm/ Sodium Chloride) 100 mls @ 100 mls/ hr IV Q8HR [facility] Stop: 01/21/19 04:59 Last Admin: 11/23/18 12:15 Dose: 100 mls/hr Dextrose/Sodium Chloride (D5-0.9%Ns) 1,000 mls @ 40 mls/hr IV .Q24H [facility] Stop: 01/21/19 11:44 Last Admin: 11/23/18 11:34 Dose: 40 mls/hr Insulin Aspart (Novolog) 0 units SUBQ ACHS [facility]; Protocol Stop: 01/21/19 07:29 Last Admin: 11/23/18 12:15 Dose: 2 units Lactobacillus Rhamnosus (Culturelle 15b) 1 each PO DAILY [facility] Stop: 01/22/19 15:59 Loperamide HCl (Imodium) 4 mg PO PRN PRN PRN Reason: Loose Stools Stop: 01/20/19 23:21 Magnesium Hydroxide (Milk Of Magnesia) 30 ml PO Q72H PRN PRN Reason: Constipation Stop: 01/20/19 23:21 Metoprolol Tartrate (Lopressor) 50 mg PO BID [facility] Stop: 01/21/19 08:59 Last Admin: 11/23/18 08:34 Dose: 50 mg Mineral Oil (Mineral Oil 30 Ml) 30 ml PO BID [facility] Stop: 01/22/19 16:59 Miscellaneous (Probiotic Screen) 1 ea MC PRN PRN PRN Reason: PROTOCOL Stop: 01/22/19 14:43 Ondansetron HCl (Zofran) 4 mg IV Q8H PRN PRN Reason: Nausea / Vomiting Stop: 01/20/19 23:26 Sodium Phosphate (Fleet Enema) 135 ml RC PRN PRN PRN Reason: IF DULCOLAX INEFFECTIVE Stop: 01/20/19 23:21 Last Admin: 11/23/18 05:05 Dose: 135 ml General: congested, demented HEENT: NC/AT, PERRLA, EOMI Neck: Supple, No JVD, No thyromegaly Lungs: congested, rales, ronchi Cardiovascular: RRR, Normal S1, Normal S2 Abdomen: soft, non-tender, globular, distended, +GT, positive bowel sound Extremities: excoriation, contracture - Procedures Procedures: Procedures Procedure Code Date INSERT INDWELLING CATH 57.94 08/21/08 INSERT TEMP BLADDER CATH [id number] 08/21/08 Internal Medicine Assmt/Plan - Assessment Assessment: ASSESSMENT AND PLAN: bacteremia, abd distention, Urinary tract infection, sepsis, acute renal failure, kidney stones, leukocytosis, metabolic acidosis, low albumin, cerebral palsy, mental retardation, spastic quadriplegia, hypertension, cardiomyopathy, hypercholesterolemia, status post PEG, elevated D-dimer. - Plan Plan: PLAN: Continue the patient on oxygen and bronchodilator treatment. Continue aggressive IV hydration. Continue on broad-spectrum antibiotic. We will review the patient's CT of the abdomen and pelvis. We will start the patient on heparin prophylactically. We will titrate the patient's antihypertensive medication. We may consider a Urology consultation. We will continue to monitor the patient on the telemetry bed. will refer to dr meadows will add aminoglycoside Nutritional Asmnt/Malnutr-PDOC - Dietary Evaluation Malnutrition Findings (Please click <Entered> for more info): Nutritional Asmnt/Malnutrition Start: 11/22/18 16: 19 Text: Status: Complete Freq: Protocol: Document 11/22/18 16:20 LCMIKE (Rec: 11/22/18 16:36 [email or web address]) Nutritional Asmnt/Malnutrition Patient General Information Nutritional Screening High Risk Consult Diagnosis sepsis, UTI Pertinent Medical Hx/Surgical Hx HTN, CVA/TIA, dyslipdiemia, PUD/GERD, renal stone, dementia, CP, osteoporosis Subjective Information Consult received for melisa Barron . Pt seen lying in bed at time of visit, awake, non-verbal noted. Spoke with RN GARO Zamarripa reported pt ate well, consumed 100% of lunch. Pt has multiple renal stone noted per nurse, urology doctor on case. Current Diet Order/ Nutrition Support SHAGGY, vegerarian pureed, Two Tam HN 1 can if PO<80% Pertinent Medications D5-0.9%ns, pepcid, novolog, heparin, piperacillin, zofran Pertinent Labs 11/22 BUN 65, Cr 5.0, gluocse 150, POC 157-222 11/21 Na 135, BUN 61, Cr 5.1, Gluocse 145, alb 3.2 Nutritional Hx/Data Height 1.6 m Height (Calculated Centimeters) 160.0 Current Weight (lbs) 61.235 kg Weight (Calculated Kilograms) 61.2 Weight (Calculated Grams) 31263.0 [place] Body Weight 124 Body Mass Index (BMI) 23.9 Weight Status Approriate GI Symptoms GI Symptoms None Last BM not indicated Difficult in: None Skin Integrity/Comment: reddened to right and left buttocks Current %PO Good (75-100%) Estimated Nutritional Goals BEE in Kcals: Using Current wt Calories/Kcals/Kg 27-32 Kcals Calculated 4793-5987 Protein: Using Current wt Protein g/k.8 Protein Calculated 49 Fluid: ml per MD Nutritional Problem 1. Problem Problem altered nutrition related labs Etiology renal dysfunction, hyperglycemia Signs/Symptoms: BUN 65, Cr 5.0, gluocse 150, POC 157-222 Intervention/Recommendation Comments 1. Continue with vegetarian pureed SHAGGY diet with supplemental of Two Tam HN as ordered. 2. Will continue to monitor renal labs and consider adjust protein intake, however pt is on vegetarian diet which not providing a large mount of protien at this time. 3. Monitor PO intake, wt, labs and skin integrity 4. F/U as high risk in 2-3 days Expected Outcomes/Goals Expected Outcomes/Goals 1. PO intake to meet at least 75% of nutritional needs. 2. Wt stability, skin to remain intact, labs to approach WNL.
[2018-11-23 16:55] LABS: BASOPHILE ABSOLUTE 0.1 Th/cumm (0-0.2); EOSINOPHILE ABSOLUTE 0.1 Th/cmm (0.1-0.4); HEMATOCRIT 35.3 % (41.0-60); HEMOGLOBIN 11.7 gm/dL (12-16); LYMPHOCYTE ABSOLUTE 0.4 Th/cmm (1.5-3.0); MEAN CELL VOLUME 82.3 fl (80-99); MEAN CORPUSCULAR HEMOGLOBIN 27.3 pg (26.0-30.0); MEAN CORPUSCULAR HGB CONC 33.2 pg (28.0-36.0); MEAN PLATELET VOLUME 6.5 fl; MONOCYTE ABSOLUTE 0.4 Th/cmm (0.3-1.0); NEUTROPHILE ABSOLUTE 16.2 Th/cmm (1.8-8.0); PLATELET COUNT 212 Th/cmm (150-400); RED BLOOD COUNT 4.28 Mil/cmm (4.30-5.70); RED CELL DISTRIBUTION WIDTH 16.3 % (11.5-20.0)
[2018-11-23] MEDS ORDERED: Amikacin 500 mg in D5W 100mL (Q24HR) IV ONE (17:00)
[2018-11-23 17:01] LABS: WHITE BLOOD COUNT 17.2 Th/cmm (4.8-10.8)
[2018-11-23] MEDS: Lactobacillus Rhamnosus GG 15 Billion CFU CAP.SPRINK PO SCH (17:20)
[2018-11-23 17:32] LABS: BAND NEUTROPHILE 0 % (0-10); LYMPHOCYTE 2 % (20-50); MONOCYTE 2 % (2-10); NEUTROPHILS 95 % (40-80)
[2018-11-23 17:33] LABS: BASOPHIL 0 % (0-3); EOSINOPHIL 1 % (0-5)
[2018-11-24] MEDS: Piperacillin Sodium/Tazobact 2.25 GM in Sodium Chloride 0.9% 100 ML IV SCH ×3 (04:48→21:02)
[2018-11-24] MEDS: INSULIN ASPART, RECOMBINANT 100 UNITS/ML SUBQ SCH ×4 (06:53→21:04)
[2018-11-24 07:25] LABS: ALB/GLOB RATIO 0.7 (1.0-1.8); ALBUMIN 2.4 gm/dL (4.2-5.5); ANION GAP 15.4 (7.0-16.0); BILIRUBIN,TOTAL 0.5 mg/dL (0.3-1.0); CARBON DIOXIDE 18.7 mEq/L (21.0-31.0); GFR AFRICAN-AMERICAN 14.9 ml/min (>90); GFR NON AFRICAN-AMERICAN 12.3 ml/min; MAGNESIUM 2.5 mg/dL (1.9-2.7); POTASSIUM SERUM 4.1 mEq/L (3.5-5.1)
[2018-11-24 07:33] LABS: CREATININE - SERUM 5.3 mg/dL (0.7-1.3)
[2018-11-24] MEDS: Multivitamin w/ Minerals Tab PO SCH (08:40)
[2018-11-24] MEDS: Lactobacillus Rhamnosus GG 15 Billion CFU CAP.SPRINK PO SCH (08:40)
--- NOTE | 2018-11-24 09:22 | Diagnostic Imaging Report ---
Exam: KUB of the abdomen. HISTORY: Obstruction Prior exam: CT examination of the abdomen 11/21/2018 Findings: Multiple views of the abdomen reviewed. The study demonstrates extensive distention of the small and large bowel loops consistent with ileus. There is evidence of for multiple calcification in the right and left kidneys. Bony structures intact. Moderate amount of fecal content is noted IMPRESSION: Ileus, clinical correlation follow-up exam is recommended. Multiple right and left renal calcifications
--- NOTE | 2018-11-24 11:09 | Internal Medicine Prog Note ---
Internal Medicine Subjective - Subjective Service Date: 11/24/18 Patient is:: awake, non-verbal, non-interactive, in bed Patient Complaints of:: other (per staff, abd distended) Per staff patient has:: no adverse event, no episodes of fall, tolerating meds Internal Medicine Objective - Results Result Diagrams: 11/23/18 16:49 11/24/18 06:45 Recent Labs: Laboratory Last Values WBC 17.2 Th/cmm (4.8-10.8) H 11/23/18 16:49 RBC 4.28 Mil/cmm (4.30-5.70) L 11/23/18 16:49 Hgb 11.7 gm/dL (12-16) L 11/23/18 16:49 Hct 35.3 % (41.0-60) L 11/23/18 16:49 MCV 82.3 fl (80-99) 11/23/18 16:49 MCH 27.3 pg (26.0-30.0) 11/23/18 16:49 MCHC Differential 33.2 pg (28.0-36.0) 11/23/18 16:49 RDW 16.3 % (11.5-20.0) 11/23/18 16:49 Plt Count 212 Th/cmm (150-400) 11/23/18 16:49 MPV 6.5 fl 11/23/18 16:49 Add Manual Diff YES 11/23/18 16:49 Neutrophils % 84.7 % (40.0-80.0) H 11/21/18 19:00 Band Neutrophils % 0 % (0-10) 11/23/18 16:49 Lymphocytes % 3.0 % (20.0-50.0) L 11/21/18 19:00 Monocytes % 10.8 % (2.0-10.0) H 11/21/18 19:00 Eosinophils % 1.0 % (0.0-5.0) 11/21/18 19:00 Basophils % 0.5 % (0.0-2.0) 11/21/18 19:00 Neutrophils (Manual) 95 % (40-80) H 11/23/18 16:49 Lymphocytes 2 % (20-50) L 11/23/18 16:49 Monocytes 2 % (2-10) 11/23/18 16:49 Eosinophils 1 % (0-5) 11/23/18 16:49 Basophils 0 % (0-3) 11/23/18 16:49 Platelet Estimate ADEQUATE (NORMAL) 11/22/18 06:22 PT 9.8 SECONDS (9.5-11.5) 11/21/18 19:00 INR 0.94 (0.5-1.4) 11/21/18 19:00 PTT (Actin FS) 31.0 SECONDS (26.0-38.0) 11/21/18 19:00 D-Dimer 3700 ng/mL (100-400) H 11/21/18 19:00 Sodium 144 mEq/L (136-145) 11/24/18 06:45 Potassium 4.1 mEq/L (3.5-5.1) 11/24/18 06:45 Chloride 114 mEq/L (98-107) H 11/24/18 06:45 Carbon Dioxide 18.7 mEq/L (21.0-31.0) L 11/24/18 06:45 Anion Gap 15.4 (7.0-16.0) 11/24/18 06:45 BUN 65 mg/dL (7-25) H 11/24/18 06:45 Creatinine 5.3 mg/dL (0.7-1.3) H* 11/24/18 06:45 Est GFR ( Amer) 14.9 ml/min (>90) 11/24/18 06:45 Est GFR (Non-Af Amer) 12.3 ml/min 11/24/18 06:45 BUN/Creatinine Ratio 12.3 11/24/18 06:45 Glucose 129 mg/dL (70-105) H 11/24/18 06:45 POC Glucose 119 MG/DL (70 - 105) H 11/24/18 06:52 Whole Bld Lactic Acid 0.59 mmol/L (0.60-1.99) L 11/21/18 19:00 Calcium 8.0 mg/dL (8.6-10.3) L 11/24/18 06:45 Magnesium 2.5 mg/dL (1.9-2.7) 11/24/18 06:45 Total Bilirubin 0.5 mg/dL (0.3-1.0) 11/24/18 06:45 AST 16 U/L (13-39) 11/24/18 06:45 ALT 22 U/L (7-52) 11/24/18 06:45 Alkaline Phosphatase 191 U/L (34-104) H 11/24/18 06:45 Ammonia 40 umol/L (16-53) 11/22/18 06:22 Creatine Kinase 85 U/L (30-223) 11/21/18 19:00 Troponin I 0.02 ng/mL (0.01-0.05) 11/21/18 19:00 B-Natriuretic Peptide 142.0 pg/mL (5.0-100.0) H 11/21/18 19:00 Total Protein 6.0 gm/dL (6.0-8.3) 11/24/18 06:45 Albumin 2.4 gm/dL (4.2-5.5) L 11/24/18 06:45 Globulin 3.6 gm/dL 11/24/18 06:45 Albumin/Globulin Ratio 0.7 (1.0-1.8) L 11/24/18 06:45 Triglycerides 219 mg/dL (<150) H 11/21/18 19:00 Cholesterol 73 mg/dL (<200) 11/21/18 19:00 LDL Cholesterol Direct 18 mg/dL (75-193) L 11/21/18 19:00 HDL Cholesterol 12 mg/dL (23-92) L 11/21/18 19:00 Amylase 50 U/L (29-103) 11/21/18 19:00 Lipase 39 U/L (11-82) 11/21/18 19:00 Vitamin B12 569 pg/mL (232-1245) 11/22/18 06:22 Folic Acid >20.0 ng/mL (>3.0) 11/22/18 06:22 TSH 0.89 uIU/ml (0.34-5.60) 11/22/18 06:22 Urine Source CLEAN C 11/21/18 21:26 Urine Color YELLOW 11/21/18 21:26 Urine Clarity HAZY (CLEAR) 11/21/18 21:26 Urine pH 8.5 (4.6 - 8.0) 11/21/18 21:26 Ur Specific [place] 1.020 (1.005-1.030) 11/21/18 21:26 Urine Protein >=300 mg/dL (NEGATIVE) 11/21/18 21:26 Urine Glucose (UA) NEGATIVE mg/dL (NEGATIVE) 11/21/18 21: Urine Ketones NEGATIVE mg/dL (NEGATIVE) 11/21/18 21:26 Urine Blood MODERATE (NEGATIVE) H 11/21/18 21:26 Urine Nitrate POSITIVE (NEGATIVE) H 11/21/18 21:26 Urine Bilirubin NEGATIVE (NEGATIVE) 11/21/18 21: Urine Urobilinogen 0.2 E.U./dL (0.2 - 1.0) 11/21/18 21:26 Ur Leukocyte Esterase MODERATE (NEGATIVE) H 11/21/18 21:26 Urine RBC 2-5 /hpf (0-5) H 11/21/18 21: Urine WBC 10-25 /hpf (0-5) H 11/21/18 21:26 Ur Epithelial Cells FEW /lpf (FEW) 11/21/18 21: Urine Bacteria 1+ /hpf (NONE SEEN) H 11/21/18 21:26 - Physical Exam Vitals and I&O: Vital Signs Temp 97.4 F 11/24/18 07:55 Pulse 95 11/24/18 08:40 Resp 18 11/24/18 08:00 BP 133/88 11/24/18 08:40 Pulse Ox 100 11/24/18 07:55 Intake & Output 11/23/18 11/24/18 11/24/18 18:59 06:59 18:59 Intake Total 312.191 8845.333 Output Total 825 1550 Balance -286.333 279.333 Weight (lbs) 139 lb 141 lb 7 oz Intake: Intake, IV Amount 298.667 949.333 D5-0.9%Ns 1,000 ml @ 40 198.667 749.333 mls/hr IV .Q24H [facility] Rx#: [id number] Piperacillin Sodium/ 100 200 Tazobact 2.25 gm In Sodium Chloride 0.9% 100 ml @ 100 mls/hr IV Q8HR [facility] Rx#:[id number] Oral 240 880 Output: Urine 825 1550 Other: # Bowel Movements 2 1 Weight Source Bedscale Bedscale Active Medications: Current Medications Acetaminophen (Tylenol 650mg Supp) 650 mg RC Q4HR PRN PRN Reason: MILD PAIN OR TEMP >100 Stop: 01/20/19 23:21 Last Admin: 11/22/18 20:51 Dose: 650 mg Acetaminophen/Hydrocodone Bitart ([place] 5mg/325mg) 1 tab PO Q4H PRN PRN Reason: MODERATE PAIN (LEVEL 4-6) Stop: 01/20/19 23:21 Last Admin: 11/23/18 14:06 Dose: 1 tab Albuterol Sulfate (Albuterol 2.5mg/3ml Neb Ud) 2.5 mg HHN Q2HRT PRN PRN Reason: Shortness of Breath or Wheeze Stop: 01/20/19 23:25 Baclofen (Lioresal) 10 mg PO QID [facility] Stop: 01/21/19 08:59 Last Admin: 11/24/18 08:40 Dose: 10 mg Famotidine (Pepcid) 20 mg PO DAILY@0730 [facility] Stop: 01/21/19 07:29 Last Admin: 11/24/18 06:50 Dose: 20 mg Heparin Sodium (Porcine) (Heparin) 5,000 units SUBQ Q12HR [facility] Stop: 01/21/19 08:59 Last Admin: 11/24/18 08:40 Dose: 5,000 units Piperacillin Sod/Tazobactam (Sod 2.25 gm/ Sodium Chloride) 100 mls @ 100 mls/ hr IV Q8HR [facility] Stop: 01/21/19 04:59 Last Infusion: 11/24/18 06:18 Dose: Infused Dextrose/Sodium Chloride (D5-0.9%Ns) 1,000 mls @ 40 mls/hr IV .Q24H [facility] Stop: 01/21/19 11:44 Last Infusion: 11/24/18 06:18 Dose: 40 mls/hr Insulin Aspart (Novolog) 0 units SUBQ ACHS [facility]; Protocol Stop: 01/21/19 07:29 Last Admin: 11/24/18 06:53 Dose: Not Given Lactobacillus Rhamnosus (Culturelle 15b) 1 each PO DAILY [facility] Stop: 01/22/19 15:59 Last Admin: 11/24/18 08:40 Dose: 1 each Loperamide HCl (Imodium) 4 mg PO PRN PRN PRN Reason: Loose Stools Stop: 01/20/19 23:21 Magnesium Hydroxide (Milk Of Magnesia) 30 ml PO Q72H PRN PRN Reason: Constipation Stop: 01/20/19 23:21 Metoprolol Tartrate (Lopressor) 50 mg PO BID [facility] Stop: 01/21/19 08:59 Last Admin: 11/24/18 08:40 Dose: 50 mg Mineral Oil (Mineral Oil 30 Ml) 30 ml PO BID [facility] Stop: 01/22/19 16:59 Last Admin: 11/24/18 08:40 Dose: 30 ml Miscellaneous (Probiotic Screen) 1 ea PRN PRN PRN Reason: PROTOCOL Stop: 01/22/19 14:43 Miscellaneous (Amikacin Iv Per Pharmacy) 1 [facility] PRN PRN PRN Reason: PROTOCOL Stop: 01/22/19 15:54 Ondansetron HCl (Zofran) 4 mg IV Q8H PRN PRN Reason: Nausea / Vomiting Stop: 01/20/19 23:26 Sodium Phosphate (Fleet Enema) 135 ml RC PRN PRN PRN Reason: IF DULCOLAX INEFFECTIVE Stop: 01/20/19 23:21 Last Admin: 11/23/18 05:05 Dose: 135 ml General: congested, demented HEENT: NC/AT, PERRLA, EOMI Neck: Supple, No JVD, No thyromegaly Lungs: congested, rales, ronchi Cardiovascular: RRR, Normal S1, Normal S2 Abdomen: soft, non-tender, globular, distended, +GT, positive bowel sound Extremities: excoriation, contracture - Procedures Procedures: Procedures Procedure Code Date INSERT INDWELLING CATH 57.94 08/21/08 INSERT TEMP BLADDER CATH [id number] 08/21/08 Internal Medicine Assmt/Plan - Assessment Assessment: bacteremia, abd distention, Urinary tract infection, sepsis, acute renal failure, kidney stones, leukocytosis, metabolic acidosis, low albumin, cerebral palsy, mental retardation, spastic quadriplegia, hypertension, cardiomyopathy, hypercholesterolemia, status post PEG, elevated D-dimer. - Plan Plan: continue ivabx ivf for hydration am labs aspiration precautions continue current plan of care Nutritional Asmnt/Malnutr-PDOC - Dietary Evaluation Malnutrition Findings (Please click <Entered> for more info): Nutritional Asmnt/Malnutrition Start: 11/22/18 16: 19 Text: Status: Complete Freq: Protocol: Document 11/22/18 16:20 [facility] (Rec: 11/22/18 16:36 [facility]-[id number]) Nutritional Asmnt/Malnutrition Patient General Information Nutritional Screening High Risk Consult Diagnosis sepsis, UTI Pertinent Medical Hx/Surgical Hx HTN, CVA/TIA, dyslipdiemia, PUD/GERD, renal stone, dementia, CP, osteoporosis Subjective Information Consult received for melisa Barron . Pt seen lying in bed at time of visit, awake, non-verbal noted. Spoke with GARO Zamarripa, RN reported pt ate well, consumed 100% of lunch. Pt has multiple renal stone noted per nurse, urology doctor on case. Current Diet Order/ Nutrition Support SHAGGY, vegerarian pureed, Two Tam HN 1 can if PO<80% Pertinent Medications D5-0.9%ns, pepcid, novolog, heparin, piperacillin, zofran Pertinent Labs 11/22 BUN 65, Cr 5.0, gluocse 150, POC 157-222 11/21 Na 135, BUN 61, Cr 5.1, Gluocse 145, alb 3.2 Nutritional Hx/Data Height 5 ft 3 in Height (Calculated Centimeters) 160.0 Current Weight (lbs) 135 lb Weight (Calculated Kilograms) 61.2 Weight (Calculated Grams) 12112.0 [place] Body Weight 124 Body Mass Index (BMI) 23.9 Weight Status Approriate GI Symptoms GI Symptoms None Last BM not indicated Difficult in: None Skin Integrity/Comment: reddened to right and left buttocks Current %PO Good (75-100%) Estimated Nutritional Goals BEE in Kcals: Using Current wt Calories/Kcals/Kg 27-32 Kcals Calculated 1613-2912 Protein: Using Current wt Protein g/k.8 Protein Calculated 49 Fluid: ml per MD Nutritional Problem 1. Problem Problem altered nutrition related labs Etiology renal dysfunction, hyperglycemia Signs/Symptoms: BUN 65, Cr 5.0, gluocse 150, POC 157-222 Intervention/Recommendation Comments 1. Continue with vegetarian pureed SHAGGY diet with supplemental of Two Tam HN as ordered. 2. Will continue to monitor renal labs and consider adjust protein intake, however pt is on vegetarian diet which not providing a large mount of protien at this time. 3. Monitor PO intake, wt, labs and skin integrity 4. F/U as high risk in 2-3 days Expected Outcomes/Goals Expected Outcomes/Goals 1. PO intake to meet at least 75% of nutritional needs. 2. Wt stability, skin to remain intact, labs to approach WNL.
--- NOTE | 2018-11-24 11:36 | Progress Notes ---
DATE: 11/23/2018 SUBJECTIVE: The patient remains uremic and tachycardic as we are giving him Zosyn for his urinary tract infection. Cultures are pending. Surprisingly, he is tolerating his diet quite well and ate 90% this morning. The nurses have communicated with the patient's mother's cousin about the treatment options, namely nephrostomies versus conservative watchful waiting and comfort care. We are trying to find out who is the person incharge to make their decisions and then I can explain in more details about the treatment options of this complicated situation with bilateral stones and bilateral hydronephrosis with infection. PHYSICAL EXAMINATION: VITAL SIGNS: The patient's heart rate is 111, blood pressure 159/97, temperature 99.5, respirations 20, saturating 99%. GENERAL: His mental status is about the same. ABDOMEN: More distended than yesterday, but soft. Dr. Bhagat has ordered an enema for him. EXTREMITIES: No edema. LABORATORY DATA: White count 14.5, BUN 67, creatinine 5.4. All numbers are slightly worse than yesterday. ASSESSMENT: 1. Bilateral ureteral stones with obstruction and hydronephrosis. Treatment choices are nephrostomies versus doing comfort care and then considering dialysis as another option. 2. Bilateral kidney stones, large volume disease, will require multiple procedures to get free of stones. 3. Renal failure, slightly worse, may require dialysis, the family wants to pursue this. We will treat the renal failure, but the patient will still have the problems of infection in both kidneys. Lastly, quadriplegia, no change. JOB# [id number]
[2018-11-24] MEDS: D5-0.9%NS 1,000 ML IV SCH (14:06)
[2018-11-24] MEDS: Hydrocodone/APAP 5mg/325mg Tab PO PRN ×2 (14:22→23:29)
--- NOTE | 2018-11-24 21:10 | Consultation ---
DATE OF CONSULTATION: 11/24/2018 INPATIENT GASTROINTESTINAL CONSULTATION REFERRING PHYSICIAN: Dr. Bhagat. REASON FOR CONSULTATION: Abdominal distention. HISTORY OF PRESENT ILLNESS: A 48-year-old male with kidney stone, cerebral palsy, mental retardation, dysphagia, presents to the hospital with abdominal distention. We were asked to see the patient. He is otherwise a poor historian. PAST MEDICAL HISTORY: Kidney stone, cerebral palsy, mental retardation, hypertension, cardiomyopathy, dysphagia. PAST SURGICAL HISTORY: G-tube placement. FAMILY HISTORY: Noncontributory. SOCIAL HISTORY: Resident of [facility]. ALLERGIES: SULFA AND DOCUSATE. CURRENT MEDICATIONS: Tylenol, [place], baclofen, Pepcid, heparin, insulin, Culturelle, Imodium, milk of magnesia, Lopressor, mineral oil, probiotics, amikacin, Zofran, Zosyn, fleet enema. REVIEW OF SYSTEMS: Unobtainable. PHYSICAL EXAMINATION: VITAL SIGNS: Temperature 98.7, breathing 20, pulse 79, blood pressure 161/94, satting 94%. GENERAL: In no apparent distress. EYES: Anicteric. Normal conjunctivae. HEENT: Normocephalic, atraumatic. Moist mucous membranes. NECK: Soft, supple. CHEST: Clear, normal effort. CARDIOVASCULAR: Regular rate and rhythm. ABDOMEN: Soft, nontender, mildly distended, decreased bowel sounds. SKIN: Warm and dry. EXTREMITIES: Reveal no cyanosis. LABORATORY DATA: Show white count of 17.2, hemoglobin 11.7, platelets 212, creatinine 5.3. Urine is nitrite positive, leukocyte esterase positive. IMPRESSION: A 48-year-old male with abdominal distention secondary to an ileus. Ileus is likely being driven by the underlying obstructive urinary condition resulting in azotemia. This should be addressed by Urology. The patient also has evidence of gallstones, but does not appear to have any symptoms from that. It could be decided later on if the patient is symptomatic from his gallstones so that a cholecystectomy can be performed. PLAN: 1. Provide patient with mineral oil. 2. Treat underlying urinary obstructive condition and defer to Urology. 3. Consider cholecystectomy if symptoms. 4. Check a HIDA scan. Thank you for allowing me to participate. Please call me if any questions. JOB# [id number]
[2018-11-25] MEDS: Piperacillin Sodium/Tazobact 2.25 GM in Sodium Chloride 0.9% 100 ML IV SCH ×3 (04:49→20:32)
[2018-11-25 06:20] LABS: EOSINOPHILE ABSOLUTE 0.2 Th/cmm (0.1-0.4); HEMATOCRIT 36.5 % (41.0-60); LYMPHOCYTE ABSOLUTE 1.1 Th/cmm (1.5-3.0); MEAN CELL VOLUME 82.3 fl (80-99); MEAN CORPUSCULAR HGB CONC 32.8 pg (28.0-36.0); MONOCYTE ABSOLUTE 0.5 Th/cmm (0.3-1.0); NEUTROPHILE ABSOLUTE 16.5 Th/cmm (1.8-8.0); PLATELET COUNT 289 Th/cmm (150-400); RED BLOOD COUNT 4.43 Mil/cmm (4.30-5.70); RED CELL DISTRIBUTION WIDTH 16.6 % (11.5-20.0)
[2018-11-25 06:30] LABS: WHITE BLOOD COUNT 18.3 Th/cmm (4.8-10.8)
[2018-11-25] MEDS: Hydrocodone/APAP 5mg/325mg Tab PO PRN ×2 (06:43→22:31)
[2018-11-25] MEDS: INSULIN ASPART, RECOMBINANT 100 UNITS/ML SUBQ SCH ×4 (06:44→20:41)
[2018-11-25 06:58] LABS: CALCIUM SERUM 8.5 mg/dL (8.6-10.3); CARBON DIOXIDE 17.3 mEq/L (21.0-31.0); GFR NON AFRICAN-AMERICAN 11.6 ml/min; POTASSIUM SERUM 4.3 mEq/L (3.5-5.1)
[2018-11-25 07:14] LABS: LYMPHOCYTE 10 % (20-50); MONOCYTE 6 % (2-10); NEUTROPHILS 84 % (40-80); PLATELET ESTIMATE ADEQUATE (NORMAL)
[2018-11-25 07:53] LABS: CREATININE - SERUM 5.6 mg/dL (0.7-1.3)
--- NOTE | 2018-11-25 07:54 | GI Progress Note ---
Subjective - Review of Systems Subjective: NO BM Objective - Results Result Diagrams: 11/25/18 05:55 11/25/18 05:55 Recent Labs: Laboratory Last Values WBC 18.3 Th/cmm (4.8-10.8) H 11/25/18 05:55 RBC 4.43 Mil/cmm (4.30-5.70) 11/25/18 05:55 Hgb 12.0 gm/dL (12-16) 11/25/18 05:55 Hct 36.5 % (41.0-60) L 11/25/18 05:55 MCV 82.3 fl (80-99) 11/25/18 05:55 MCH 27.0 pg (26.0-30.0) 11/25/18 05:55 MCHC Differential 32.8 pg (28.0-36.0) 11/25/18 05:55 RDW 16.6 % (11.5-20.0) 11/25/18 05:55 Plt Count 289 Th/cmm (150-400) 11/25/18 05:55 MPV 7.0 fl 11/25/18 05:55 Add Manual Diff YES 11/25/18 05:55 Neutrophils % 84.7 % (40.0-80.0) H 11/21/18 19:00 Band Neutrophils % 0 % (0-10) 11/23/18 16:49 Lymphocytes % 3.0 % (20.0-50.0) L 11/21/18 19:00 Monocytes % 10.8 % (2.0-10.0) H 11/21/18 19:00 Eosinophils % 1.0 % (0.0-5.0) 11/21/18 19:00 Basophils % 0.5 % (0.0-2.0) 11/21/18 19:00 Neutrophils (Manual) 84 % (40-80) H 11/25/18 05:55 Lymphocytes 10 % (20-50) L 11/25/18 05:55 Monocytes 6 % (2-10) 11/25/18 05:55 Eosinophils 1 % (0-5) 11/23/18 16:49 Basophils 0 % (0-3) 11/23/18 16:49 Platelet Estimate ADEQUATE (NORMAL) 11/25/18 05:55 PT 9.8 SECONDS (9.5-11.5) 11/21/18 19:00 INR 0.94 (0.5-1.4) 11/21/18 19:00 PTT (Actin FS) 31.0 SECONDS (26.0-38.0) 11/21/18 19:00 D-Dimer 3700 ng/mL (100-400) H 11/21/18 19:00 Sodium 144 mEq/L (136-145) 11/24/18 06:45 Potassium 4.1 mEq/L (3.5-5.1) 11/24/18 06:45 Chloride 114 mEq/L (98-107) H 11/24/18 06:45 Carbon Dioxide 18.7 mEq/L (21.0-31.0) L 11/24/18 06:45 Anion Gap 15.4 (7.0-16.0) 11/24/18 06:45 BUN 65 mg/dL (7-25) H 11/24/18 06:45 Creatinine 5.3 mg/dL (0.7-1.3) H* 11/24/18 06:45 Est GFR ( Amer) 14.9 ml/min (>90) 11/24/18 06:45 Est GFR (Non-Af Amer) 12.3 ml/min 11/24/18 06:45 BUN/Creatinine Ratio 12.3 11/24/18 06:45 Glucose 129 mg/dL (70-105) H 11/24/18 06:45 POC Glucose 129 MG/DL (70 - 105) H 11/25/18 05:55 Whole Bld Lactic Acid 0.59 mmol/L (0.60-1.99) L 11/21/18 19:00 Calcium 8.0 mg/dL (8.6-10.3) L 11/24/18 06:45 Magnesium 2.5 mg/dL (1.9-2.7) 11/24/18 06:45 Total Bilirubin 0.5 mg/dL (0.3-1.0) 11/24/18 06:45 AST 16 U/L (13-39) 11/24/18 06:45 ALT 22 U/L (7-52) 11/24/18 06:45 Alkaline Phosphatase 191 U/L (34-104) H 11/24/18 06:45 Ammonia 40 umol/L (16-53) 11/22/18 06:22 Creatine Kinase 85 U/L (30-223) 11/21/18 19:00 Troponin I 0.02 ng/mL (0.01-0.05) 11/21/18 19:00 B-Natriuretic Peptide 142.0 pg/mL (5.0-100.0) H 11/21/18 19:00 Total Protein 6.0 gm/dL (6.0-8.3) 11/24/18 06:45 Albumin 2.4 gm/dL (4.2-5.5) L 11/24/18 06:45 Globulin 3.6 gm/dL 11/24/18 06:45 Albumin/Globulin Ratio 0.7 (1.0-1.8) L 11/24/18 06:45 Triglycerides 219 mg/dL (<150) H 11/21/18 19:00 Cholesterol 73 mg/dL (<200) 11/21/18 19:00 LDL Cholesterol Direct 18 mg/dL (75-193) L 11/21/18 19:00 HDL Cholesterol 12 mg/dL (23-92) L 11/21/18 19:00 Amylase 50 U/L (29-103) 11/21/18 19:00 Lipase 39 U/L (11-82) 11/21/18 19:00 Vitamin B12 569 pg/mL (232-1245) 11/22/18 06:22 Folic Acid >20.0 ng/mL (>3.0) 11/22/18 06:22 TSH 0.89 uIU/ml (0.34-5.60) 11/22/18 06:22 Urine Source CLEAN C 11/21/18 21:26 Urine Color YELLOW 11/21/18 21:26 Urine Clarity HAZY (CLEAR) 11/21/18 21:26 Urine pH 8.5 (4.6 - 8.0) 11/21/18 21:26 Ur Specific [place] 1.020 (1.005-1.030) 11/21/18 21:26 Urine Protein >=300 mg/dL (NEGATIVE) 11/21/18 21:26 Urine Glucose (UA) NEGATIVE mg/dL (NEGATIVE) 11/21/18 21:26 Urine Ketones NEGATIVE mg/dL (NEGATIVE) 11/21/18 21:26 Urine Blood MODERATE (NEGATIVE) H 11/21/18 21:26 Urine Nitrate POSITIVE (NEGATIVE) H 11/21/18 21:26 Urine Bilirubin NEGATIVE (NEGATIVE) 11/21/18 21:26 Urine Urobilinogen 0.2 E.U./dL (0.2 - 1.0) 11/21/18 21:26 Ur Leukocyte Esterase MODERATE (NEGATIVE) H 11/21/18 21:26 Urine RBC 2-5 /hpf (0-5) H 11/21/18 21:26 Urine WBC 10-25 /hpf (0-5) H 11/21/18 21:26 Ur Epithelial Cells FEW /lpf (FEW) 11/21/18 21:26 Urine Bacteria 1+ /hpf (NONE SEEN) H 11/21/18 21:26 - Physical Exam Vitals and I&O: Vital Signs Temp 98.6 F 11/25/18 04:00 Pulse 117 11/25/18 06:07 Resp 20 11/25/18 04:00 BP 182/119 11/25/18 04:00 Pulse Ox 99 11/25/18 04:00 Intake & Output 11/24/18 11/25/18 11/25/18 18:59 06:59 18:59 Intake Total 250.667 975.833 24.167 Output Total 1350 Balance 250.667 -374.167 24.167 Weight (lbs) 63.957 kg Intake: Intake, IV Amount 250.667 275.833 24.167 D5-0.9%Ns 1,000 ml @ 40 250.667 mls/hr IV .Q24H [facility] Rx#: [id number] Piperacillin Sodium/ 275.833 24.167 Tazobact 2.25 gm In Sodium Chloride 0.9% 100 ml @ 100 mls/hr IV Q8HR [facility] Rx#:[id number] Oral 700 Output: Urine 1350 Other: # Bowel Movements 0 Weight Source Bedscale Active Medications: Current Medications Acetaminophen (Tylenol 650mg Supp) 650 mg RC Q4HR PRN PRN Reason: MILD PAIN OR TEMP >100 Stop: 01/20/19 23:21 Last Admin: 11/22/18 20:51 Dose: 650 mg Acetaminophen/Hydrocodone Bitart ([place] 5mg/325mg) 1 tab PO Q4H PRN PRN Reason: MODERATE PAIN (LEVEL 4-6) Stop: 01/20/19 23:21 Last Admin: 11/25/18 06:43 Dose: 1 tab Albuterol Sulfate (Albuterol 2.5mg/3ml Neb Ud) 2.5 mg HHN Q2HRT PRN PRN Reason: Shortness of Breath or Wheeze Stop: 01/20/19 23:25 Baclofen (Lioresal) 10 mg PO QID [facility] Stop: 01/21/19 08:59 Last Admin: 11/24/18 21:03 Dose: 10 mg Famotidine (Pepcid) 20 mg PO DAILY@0730 [facility] Stop: 01/21/19 07:29 Last Admin: 11/25/18 06:43 Dose: 20 mg Heparin Sodium (Porcine) (Heparin) 5,000 units SUBQ Q12HR [facility] Stop: 01/21/19 08:59 Last Admin: 11/24/18 21:04 Dose: 5,000 units Piperacillin Sod/Tazobactam (Sod 2.25 gm/ Sodium Chloride) 100 mls @ 100 mls/ hr IV Q8HR [facility] Stop: 01/21/19 04:59 Last Infusion: 11/25/18 07:11 Dose: Infused Dextrose/Sodium Chloride (D5-0.9%Ns) 1,000 mls @ 40 mls/hr IV .Q24H [facility] Stop: 01/21/19 11:44 Last Admin: 11/24/18 14:06 Dose: 40 mls/hr Insulin Aspart (Novolog) 0 units SUBQ ACHS [facility]; Protocol Stop: 01/21/19 07:29 Last Admin: 11/25/18 06:44 Dose: Not Given Lactobacillus Rhamnosus (Culturelle 15b) 1 each PO DAILY [facility] Stop: 01/22/19 15:59 Last Admin: 11/24/18 08:40 Dose: 1 each Loperamide HCl (Imodium) 4 mg PO PRN PRN PRN Reason: Loose Stools Stop: 01/20/19 23:21 Magnesium Hydroxide (Milk Of Magnesia) 30 ml PO Q72H PRN PRN Reason: Constipation Stop: 01/20/19 23:21 Metoprolol Tartrate (Lopressor) 50 mg PO TID [facility] Stop: 01/24/19 08:59 Mineral Oil (Mineral Oil 30 Ml) 30 ml PO BID [facility] Stop: 01/22/19 16:59 Last Admin: 11/24/18 16:29 Dose: 30 ml Miscellaneous (Probiotic Screen) 1 ea [facility] PRN PRN PRN Reason: PROTOCOL Stop: 01/22/19 14:43 Miscellaneous (Amikacin Iv Per Pharmacy) 1 ea [facility] PRN PRN PRN Reason: PROTOCOL Stop: 01/22/19 15:54 Ondansetron HCl (Zofran) 4 mg IV Q8H PRN PRN Reason: Nausea / Vomiting Stop: 01/20/19 23:26 Sodium Phosphate (Fleet Enema) 135 ml RC PRN PRN PRN Reason: IF DULCOLAX INEFFECTIVE Stop: 01/20/19 23:21 Last Admin: 11/23/18 05:05 Dose: 135 ml - Procedures Procedures: Procedures Procedure Code Date INSERT INDWELLING CATH 57.94 08/21/08 INSERT TEMP BLADDER CATH 23859 08/21/08 Assessment/Plan - Problem List Patient Problems: All Active Problems VOMITING (Acute) - Assessment Assessment: 48 YO MALE WITH ABD DISTENSION DUE TO ILEUS PT ALSO HAS GALLSTONES AND HIDA IS NEG ON PRELIM READ CAUSE OF ILEUS LIKELY DUE TO UNDERLYING URINARY OBSTRUCTION AND INFECTION 1.MINERAL OIL 2.NEEDS UROLOGY INPUT 3.VIANEY IF SX'S
[2018-11-25] MEDS: Lactobacillus Rhamnosus GG 15 Billion CFU CAP.SPRINK PO SCH (08:41)
[2018-11-25] MEDS: Multivitamin w/ Minerals Tab PO SCH (08:41)
--- NOTE | 2018-11-25 12:38 | Internal Medicine Prog Note ---
Internal Medicine Subjective - Subjective Service Date: 11/25/18 (still with hematuria) Patient is:: awake, non-verbal, non-interactive, in bed Patient Complaints of:: other (hematuria, abd distention) Per staff patient has:: no adverse event, no episodes of fall, tolerating meds Internal Medicine Objective - Results Result Diagrams: 11/25/18 05:55 11/25/18 05:55 Recent Labs: Laboratory Last Values WBC 18.3 Th/cmm (4.8-10.8) H 11/25/18 05:55 RBC 4.43 Mil/cmm (4.30-5.70) 11/25/18 05:55 Hgb 12.0 gm/dL (12-16) 11/25/18 05:55 Hct 36.5 % (41.0-60) L 11/25/18 05:55 MCV 82.3 fl (80-99) 11/25/18 05:55 MCH 27.0 pg (26.0-30.0) 11/25/18 05:55 MCHC Differential 32.8 pg (28.0-36.0) 11/25/18 05:55 RDW 16.6 % (11.5-20.0) 11/25/18 05:55 Plt Count 289 Th/cmm (150-400) 11/25/18 05:55 MPV 7.0 fl 11/25/18 05:55 Add Manual Diff YES 11/25/18 05:55 Neutrophils % 84.7 % (40.0-80.0) H 11/21/18 19:00 Band Neutrophils % 0 % (0-10) 11/23/18 16:49 Lymphocytes % 3.0 % (20.0-50.0) L 11/21/18 19:00 Monocytes % 10.8 % (2.0-10.0) H 11/21/18 19:00 Eosinophils % 1.0 % (0.0-5.0) 11/21/18 19:00 Basophils % 0.5 % (0.0-2.0) 11/21/18 19:00 Neutrophils (Manual) 84 % (40-80) H 11/25/18 05:55 Lymphocytes 10 % (20-50) L 11/25/18 05:55 Monocytes 6 % (2-10) 11/25/18 05:55 Eosinophils 1 % (0-5) 11/23/18 16:49 Basophils 0 % (0-3) 11/23/18 16:49 Platelet Estimate ADEQUATE (NORMAL) 11/25/18 05:55 PT 9.8 SECONDS (9.5-11.5) 11/21/18 19:00 INR 0.94 (0.5-1.4) 11/21/18 19:00 PTT (Actin FS) 31.0 SECONDS (26.0-38.0) 11/21/18 19:00 D-Dimer 3700 ng/mL (100-400) H 11/21/18 19:00 Sodium 147 mEq/L (136-145) H 11/25/18 05:55 Potassium 4.3 mEq/L (3.5-5.1) 11/25/18 05:55 Chloride 116 mEq/L (98-107) H 11/25/18 05:55 Carbon Dioxide 17.3 mEq/L (21.0-31.0) L 11/25/18 05:55 Anion Gap 18.0 (7.0-16.0) H 11/25/18 05:55 BUN 73 mg/dL (7-25) H 11/25/18 05:55 Creatinine 5.6 mg/dL (0.7-1.3) H* 11/25/18 05:55 Est GFR ( Amer) 14.0 ml/min (>90) 11/25/18 05:55 Est GFR (Non-Af Amer) 11.6 ml/min 11/25/18 05:55 BUN/Creatinine Ratio 13.0 11/25/18 05:55 Glucose 135 mg/dL (70-105) H 11/25/18 05:55 POC Glucose 165 MG/DL (70 - 105) H 11/25/18 12:05 Whole Bld Lactic Acid 0.59 mmol/L (0.60-1.99) L 11/21/18 19:00 Calcium 8.5 mg/dL (8.6-10.3) L 11/25/18 05:55 Magnesium 2.5 mg/dL (1.9-2.7) 11/24/18 06:45 Total Bilirubin 0.5 mg/dL (0.3-1.0) 11/24/18 06:45 AST 16 U/L (13-39) 11/24/18 06:45 ALT 22 U/L (7-52) 11/24/18 06:45 Alkaline Phosphatase 191 U/L (34-104) H 11/24/18 06:45 Ammonia 40 umol/L (16-53) 11/22/18 06:22 Creatine Kinase 85 U/L (30-223) 11/21/18 19:00 Troponin I 0.02 ng/mL (0.01-0.05) 11/21/18 19:00 B-Natriuretic Peptide 142.0 pg/mL (5.0-100.0) H 11/21/18 19:00 Total Protein 6.0 gm/dL (6.0-8.3) 11/24/18 06:45 Albumin 2.4 gm/dL (4.2-5.5) L 11/24/18 06:45 Globulin 3.6 gm/dL 11/24/18 06:45 Albumin/Globulin Ratio 0.7 (1.0-1.8) L 11/24/18 06:45 Triglycerides 219 mg/dL (<150) H 11/21/18 19:00 Cholesterol 73 mg/dL (<200) 11/21/18 19:00 LDL Cholesterol Direct 18 mg/dL (75-193) L 11/21/18 19:00 HDL Cholesterol 12 mg/dL (23-92) L 11/21/18 19:00 Amylase 50 U/L (29-103) 11/21/18 19:00 Lipase 39 U/L (11-82) 11/21/18 19:00 Vitamin B12 569 pg/mL (232-1245) 11/22/18 06:22 Folic Acid >20.0 ng/mL (>3.0) 11/22/18 06:22 TSH 0.89 uIU/ml (0.34-5.60) 11/22/18 06:22 Urine Source CLEAN C 11/21/18 21:26 Urine Color YELLOW 11/21/18 21:26 Urine Clarity HAZY (CLEAR) 11/21/18 21:26 Urine pH 8.5 (4.6 - 8.0) 11/21/18 21:26 Ur Specific [place] 1.020 (1.005-1.030) 11/21/18 21:26 Urine Protein >=300 mg/dL (NEGATIVE) 11/21/18 21:26 Urine Glucose (UA) NEGATIVE mg/dL (NEGATIVE) 11/21/18 21: Urine Ketones NEGATIVE mg/dL (NEGATIVE) 11/21/18 21:26 Urine Blood MODERATE (NEGATIVE) H 11/21/18 21:26 Urine Nitrate POSITIVE (NEGATIVE) H 11/21/18 21: Urine Bilirubin NEGATIVE (NEGATIVE) 11/21/18 21: Urine Urobilinogen 0.2 E.U./dL (0.2 - 1.0) 11/21/18 21:26 Ur Leukocyte Esterase MODERATE (NEGATIVE) H 11/21/18 21:26 Urine RBC 2-5 /hpf (0-5) H 11/21/18 21: Urine WBC 10-25 /hpf (0-5) H 11/21/18 21:26 Ur Epithelial Cells FEW /lpf (FEW) 11/21/18 21:26 Urine Bacteria 1+ /hpf (NONE SEEN) H 11/21/18 21:26 - Physical Exam Vitals and I&O: Vital Signs Temp 98.0 F 11/25/18 12:09 Pulse 115 11/25/18 12:09 Resp 23 11/25/18 12:09 BP 119/83 11/25/18 12:09 Pulse Ox 98 11/25/18 12:09 Intake & Output 11/24/18 11/25/18 11/25/18 18:59 06:59 18:59 Intake Total 250.667 975.833 24.167 Output Total 1350 Balance 250.667 -374.167 24.167 Weight (lbs) 141 lb Intake: Intake, IV Amount 250.667 275.833 24.167 D5-0.9%Ns 1,000 ml @ 40 250.667 mls/hr IV .Q24H [facility] Rx#: [id number] Piperacillin Sodium/ 275.833 24.167 Tazobact 2.25 gm In Sodium Chloride 0.9% 100 ml @ 100 mls/hr IV Q8HR [facility] Rx#:[id number] Oral 700 Output: Urine 1350 Other: # Bowel Movements 0 Weight Source Bedscale Active Medications: Current Medications Acetaminophen (Tylenol 650mg Supp) 650 mg RC Q4HR PRN PRN Reason: MILD PAIN OR TEMP >100 Stop: 01/20/19 23:21 Last Admin: 11/22/18 20:51 Dose: 650 mg Acetaminophen/Hydrocodone Bitart ([place] 5mg/325mg) 1 tab PO Q4H PRN PRN Reason: MODERATE PAIN (LEVEL 4-6) Stop: 01/20/19 23:21 Last Admin: 11/25/18 06:43 Dose: 1 tab Albuterol Sulfate (Albuterol 2.5mg/3ml Neb Ud) 2.5 mg HHN Q2HRT PRN PRN Reason: Shortness of Breath or Wheeze Stop: 01/20/19 23:25 Baclofen (Lioresal) 10 mg PO QID [facility] Stop: 01/21/19 08:59 Last Admin: 11/25/18 08:42 Dose: 10 mg Famotidine (Pepcid) 20 mg PO DAILY@0730 [facility] Stop: 01/21/19 07:29 Last Admin: 11/25/18 06:43 Dose: 20 mg Heparin Sodium (Porcine) (Heparin) 5,000 units SUBQ Q12HR [facility] Stop: 01/21/19 08:59 Last Admin: 11/25/18 08:43 Dose: Not Given Piperacillin Sod/Tazobactam (Sod 2.25 gm/ Sodium Chloride) 100 mls @ 100 mls/ hr IV Q8HR [facility] Stop: 01/21/19 04:59 Last Infusion: 11/25/18 07:11 Dose: Infused Dextrose/Sodium Chloride (D5-0.9%Ns) 1,000 mls @ 40 mls/hr IV .Q24H [facility] Stop: 01/21/19 11:44 Last Admin: 11/24/18 14:06 Dose: 40 mls/hr Insulin Aspart (Novolog) 0 units SUBQ ACHS [facility]; Protocol Stop: 01/21/19 07:29 Last Admin: 11/25/18 12:26 Dose: Not Given Lactobacillus Rhamnosus (Culturelle 15b) 1 each PO DAILY [facility] Stop: 01/22/19 15:59 Last Admin: 11/25/18 08:41 Dose: 1 each Loperamide HCl (Imodium) 4 mg PO PRN PRN PRN Reason: Loose Stools Stop: 01/20/19 23:21 Magnesium Hydroxide (Milk Of Magnesia) 30 ml PO Q72H PRN PRN Reason: Constipation Stop: 01/20/19 23:21 Metoprolol Tartrate (Lopressor) 50 mg PO TID [facility] Stop: 01/24/19 08:59 Last Admin: 11/25/18 08:41 Dose: 50 mg Mineral Oil (Mineral Oil 30 Ml) 30 ml PO BID [facility] Stop: 01/22/19 16:59 Last Admin: 11/25/18 08:40 Dose: 30 ml Miscellaneous (Probiotic Screen) 1 [facility] PRN PRN PRN Reason: PROTOCOL Stop: 01/22/19 14:43 Miscellaneous (Amikacin Iv Per Pharmacy) 1 [facility] PRN PRN PRN Reason: PROTOCOL Stop: 01/22/19 15:54 Ondansetron HCl (Zofran) 4 mg IV Q8H PRN PRN Reason: Nausea / Vomiting Stop: 01/20/19 23:26 Sodium Phosphate (Fleet Enema) 135 ml RC PRN PRN PRN Reason: IF DULCOLAX INEFFECTIVE Stop: 01/20/19 23:21 Last Admin: 11/23/18 05:05 Dose: 135 ml General: congested, demented HEENT: NC/AT, PERRLA, EOMI Neck: Supple, No JVD, No thyromegaly Lungs: congested, rales, ronchi Cardiovascular: RRR, Normal S1, Normal S2 Abdomen: globular, distended, +GT, positive bowel sound Extremities: excoriation, contracture - Procedures Procedures: Procedures Procedure Code Date INSERT INDWELLING CATH 57.94 08/21/08 INSERT TEMP BLADDER CATH [id number] 08/21/08 Internal Medicine Assmt/Plan - Assessment Assessment: bacteremia, abd distention, Urinary tract infection, sepsis, acute renal failure, kidney stones, leukocytosis, metabolic acidosis, low albumin, cerebral palsy, mental retardation, spastic quadriplegia, hypertension, cardiomyopathy, hypercholesterolemia, status post PEG, elevated D-dimer. - Plan Plan: renal consult 24hour crea clearance and u/s renal continue ivabx ivf for hydration am labs aspiration precautions continue current plan of care Nutritional Asmnt/Malnutr-PDOC - Dietary Evaluation Malnutrition Findings (Please click <Entered> for more info): Nutritional Asmnt/Malnutrition Start: 11/22/18 16: 19 Text: Status: Complete Freq: Protocol: Document 11/22/18 16:20 LCHENG (Rec: 11/22/18 16:36 LCHENG CARLOS ENRIQUE-[email or web address]) Nutritional Asmnt/Malnutrition Patient General Information Nutritional Screening High Risk Consult Diagnosis sepsis, UTI Pertinent Medical Hx/Surgical Hx HTN, CVA/TIA, dyslipdiemia, PUD/GERD, renal stone, dementia, CP, osteoporosis Subjective Information Consult received for melisa 11 . Pt seen lying in bed at time of visit, awake, non-verbal noted. Spoke with GARO Zamarripa RN reported pt ate well, consumed 100% of lunch. Pt has multiple renal stone noted per nurse, urology doctor on case. Current Diet Order/ Nutrition Support SHAGGY, vegerarian pureed, Two Tam HN 1 can if PO<80% Pertinent Medications D5-0.9%ns, pepcid, novolog, heparin, piperacillin, zofran Pertinent Labs 11/22 BUN 65, Cr 5.0, gluocse 150, POC 157-222 11/21 Na 135, BUN 61, Cr 5.1, Gluocse 145, alb 3.2 Nutritional Hx/Data Height 5 ft 3 in Height (Calculated Centimeters) 160.0 Current Weight (lbs) 135 lb Weight (Calculated Kilograms) 61.2 Weight (Calculated Grams) 65471.0 [place] Body Weight 124 Body Mass Index (BMI) 23.9 Weight Status Approriate GI Symptoms GI Symptoms None Last BM not indicated Difficult in: None Skin Integrity/Comment: reddened to right and left buttocks Current %PO Good (75-100%) Estimated Nutritional Goals BEE in Kcals: Using Current wt Calories/Kcals/Kg 27-32 Kcals Calculated 2833-8597 Protein: Using Current wt Protein g/k.8 Protein Calculated 49 Fluid: ml per MD Nutritional Problem 1. Problem Problem altered nutrition related labs Etiology renal dysfunction, hyperglycemia Signs/Symptoms: BUN 65, Cr 5.0, gluocse 150, POC 157-222 Intervention/Recommendation Comments 1. Continue with vegetarian pureed SHAGGY diet with supplemental of Two Tam HN as ordered. 2. Will continue to monitor renal labs and consider adjust protein intake, however pt is on vegetarian diet which not providing a large mount of protien at this time. 3. Monitor PO intake, wt, labs and skin integrity 4. F/U as high risk in 2-3 days Expected Outcomes/Goals Expected Outcomes/Goals 1. PO intake to meet at least 75% of nutritional needs. 2. Wt stability, skin to remain intact, labs to approach WNL.
[2018-11-25] MEDS: D5-0.9%NS 1,000 ML IV SCH (13:11)
[2018-11-25] MEDS ORDERED: D5-0.45NS 1,000 ML IV SCH (16:30)
--- NOTE | 2018-11-25 19:51 | Consultation ---
DATE OF CONSULTATION: 11/25/2018 ATTENDING PHYSICIAN: Dr. Doni Bhagat. REASON FOR CONSULTATION: Worsening kidney function, electrolyte imbalance, and fluid management. HISTORY OF PRESENT ILLNESS: This is a 48-year-old male with past medical history of chronic kidney disease, who was brought in because of abdominal discomfort. A few hours prior to admission, the patient developed worsening abdominal discomfort/pain. This was associated with nausea and vomiting. He was then brought to the Emergency Room. CT scan of the abdomen and pelvis revealed right hydronephrosis with renal/ureteral calculi, left hydronephrosis with renal/ureteral calculi, urinary bladder stone with wall thickening, left hemorrhagic cyst, stool with multiple gas filled loops of bowel, cholelithiasis. KUB showed ileus. He was seen by Urology who recommended conservative measures based on the patient's clinical condition and medical history. His white count was 8.3 today. His sodium was 147 with a BUN/creatinine of 73/5.6. He now has developed gross hematuria. PAST MEDICAL HISTORY: 1. Chronic kidney disease. 2. Profound intellectual disability. 3. Cerebral palsy. 4. Epilepsy. 5. Legally blind. 6. Chronic bilateral renal/ureteral calculi. 7. Chronic bilateral hydronephrosis. 8. Mitral valve regurgitation. 9. Recurrent UTI. 10. Essential hypertension. 11. Dyslipidemia. 12. Cardiomyopathy. 13. Severe malnutrition. CURRENT MEDICATIONS: He is currently on acetaminophen, albuterol, amikacin, baclofen, clonidine, famotidine, hydrocodone/APAP, aspart, lactobacillus, loperamide, magnesium hydroxide, metoprolol tartrate, multivitamins, Zosyn. ALLERGIES: SULFA as well as DOCUSATE SODIUM. SOCIAL AND FAMILY HISTORY: I was not able to obtain directly from the patient because he remains nonverbal. REVIEW OF SYSTEMS: Again, I was not able to decipher from the patient because of the same reason. PHYSICAL EXAMINATION: GENERAL: The patient's eyes are open, but remains nonresponsive or nonreactive. VITAL SIGNS: His blood pressure is 137/80, pulse 110, temperature 98.8 degrees. SKIN: Poor turgor, warm, no rash, no jaundice appreciated. HEENT: Head normocephalic, atraumatic. Eyes: Extraocular muscles intact. Pupils equal, round, reactive to light and accommodates. Anicteric sclerae. Pale conjunctivae. Nose, midline nasal septum. Mouth: Dry mucosa, adequate dentition. NECK: Supple, no adenopathy, no thyromegaly, no bruits. Trachea palpated in the midline. CHEST AND CARDIOVASCULAR: S1, S2. No rub, murmur nor gallop appreciated. Point of maximal impulse fifth intercostal space, left midclavicular line. No abdominal or femoral bruits appreciated. LUNGS: Equal expansion, no use of accessory muscles. No supraclavicular retraction. Clear to auscultation without any wheeze. ABDOMEN: Distended, firm, extensive borborygmi on auscultation, there is tenderness on deep palpation, but there is no rebound nor muscle guarding. Urinary bladder not distended. GENITOURINARY: Normal appearing male genitalia with indwelling Chakraborty catheter. MUSCULOSKELETAL: No effusions present in his joints, but unable to assess his range of motion. EXTREMITIES: No evidence of edema, cyanosis nor clubbing. He has underdeveloped lower extremities as compared to the rest of his body. NEUROLOGIC: The patient, as mentioned, is awake, remains nonverbal, does not follow commands, so I was not able to pursue further my neuro exam. LABORATORY DATA AND STUDIES: Did reveal white count 18.3, hemoglobin 12, hematocrit 36.5. Sodium 147, potassium 4.3, chloride 116, CO2 is 17, BUN 73, creatinine 5.3, calcium 8.5. IMPRESSION: 1. Chronic kidney disease, MDRD GFR of 11.6 mL per minute, stage 5. The patient's chronic kidney disease is secondary to longstanding history of urinary obstruction due to presence of multiple renal and ureteral calculi, also consider chronic interstitial nephritis secondary to multiple sepsis in the form of complicated UTI or pyelonephritis. 2. Chronic bilateral renal/ureteral calculi. 3. Bilateral hydronephrosis. 4. Ileus secondary to ongoing sepsis. 5. Nausea and vomiting secondary to ileus and cholelithiasis. 6. Cholelithiasis. 7. Proteus mirabilis, complicated urinary tract infection. 8. Pseudomonas aeruginosa bacteremia. 9. Hypernatremia secondary to hypertonic solution. 10. Severe malnutrition. 11. Profound intellectual disability. 12. Cerebral palsy. 13. Epilepsy. 14. Legally blind. 15. Mitral valve regurgitation. 16. Essential hypertension. 17. Dyslipidemia. 18. Cardiomyopathy. PLAN: 1. Urine sodium, eosinophils, and creatinine. 2. Urine microalbumin to creatinine ratio. 3. Gentle hydration. 4. Flush Chakraborty catheter as needed. 5. Follow up electrolytes as well as CBC. 6. The patient is currently full code. He requires hemodialysis based on his worsening kidney function, metabolic acidosis as well as uremia while further discussions/decision in progress with permanent solution. I have left a message with mother. JOB# [id number]
--- NOTE | 2018-11-25 20:04 | Progress Notes ---
DATE: UROLOGY PROGRESS NOTE SUBJECTIVE: The patient has developed some hematuria today and his BUN and creatinine are almost stable, maybe slightly high and he has not had much of fever. On exam, he is afebrile. Vital signs are stable. He is tolerating diet, but does not eat very well. PHYSICAL EXAMINATION: ABDOMEN: Soft and less distended, with both flanks mildly tender to percussion. Bladder is not palpable. EXTREMITIES: Contracted without edema. CARDIOVASCULAR: Heart sounds, sinus rhythm. LABORATORY DATA: Creatinine 5.6 about the same or slightly higher than before. IMPRESSION: 1. Bilateral hydronephrosis secondary to large ureteral stones. 2. Bilateral kidney stones more than 2 cm on each side. 3. Renal failure. Nephrology has been consulted, but the problem is obstructive and requires surgical treatment and for not too many nephrology options except dialysis. I would like to discuss and explain these options with the patient's motorcyles final inspector or legal guardian and I have been trying for the last 3 days to get name and contact information, but have been unable to get it in spite of multiple reminders to the nurses. The family or the legal guardian needs to understand the treatment options are nephrostomies, which will be almost permanent or multiple surgeries on both kidneys and both ureters or dialysis or comfort care. These need to be explained in great details for them to make an informed and appropriate decision in the patient's interest. Hopefully, I will get that person and be able to do this soon. JOB# [id number]
[2018-11-25 20:38] LABS: EOSINOPHIL SMEAR SOURCE URINE
[2018-11-25 20:39] LABS: EOSINOPHILS SMEAR COUNT NONE SEEN (NONE SEEN)
--- NOTE | 2018-11-26 00:11 | General Progress Note ---
Subjective - Review of Systems Service Date: 11/26/18 Objective - Results Result Diagrams: 11/25/18 05:55 11/25/18 05:55 Recent Labs: Laboratory Last Values WBC 18.3 Th/cmm (4.8-10.8) H 11/25/18 05:55 RBC 4.43 Mil/cmm (4.30-5.70) 11/25/18 05:55 Hgb 12.0 gm/dL (12-16) 11/25/18 05:55 Hct 36.5 % (41.0-60) L 11/25/18 05:55 MCV 82.3 fl (80-99) 11/25/18 05:55 MCH 27.0 pg (26.0-30.0) 11/25/18 05:55 MCHC Differential 32.8 pg (28.0-36.0) 11/25/18 05:55 RDW 16.6 % (11.5-20.0) 11/25/18 05:55 Plt Count 289 Th/cmm (150-400) 11/25/18 05:55 MPV 7.0 fl 11/25/18 05:55 Add Manual Diff YES 11/25/18 05:55 Neutrophils % 84.7 % (40.0-80.0) H 11/21/18 19:00 Band Neutrophils % 0 % (0-10) 11/23/18 16:49 Lymphocytes % 3.0 % (20.0-50.0) L 11/21/18 19:00 Monocytes % 10.8 % (2.0-10.0) H 11/21/18 19:00 Eosinophils % 1.0 % (0.0-5.0) 11/21/18 19:00 Basophils % 0.5 % (0.0-2.0) 11/21/18 19:00 Neutrophils (Manual) 84 % (40-80) H 11/25/18 05:55 Lymphocytes 10 % (20-50) L 11/25/18 05:55 Monocytes 6 % (2-10) 11/25/18 05:55 Eosinophils 1 % (0-5) 11/23/18 16:49 Basophils 0 % (0-3) 11/23/18 16:49 Platelet Estimate ADEQUATE (NORMAL) 11/25/18 05:55 Eos Smear Source URINE 11/25/18 18:00 Eos Smear Total Cells NONE SEEN (NONE SEEN) 11/25/18 18:00 PT 9.8 SECONDS (9.5-11.5) 11/21/18 19:00 INR 0.94 (0.5-1.4) 11/21/18 19:00 PTT (Actin FS) 31.0 SECONDS (26.0-38.0) 11/21/18 19:00 D-Dimer 3700 ng/mL (100-400) H 11/21/18 19:00 Sodium 147 mEq/L (136-145) H 11/25/18 05:55 Potassium 4.3 mEq/L (3.5-5.1) 11/25/18 05:55 Chloride 116 mEq/L (98-107) H 11/25/18 05:55 Carbon Dioxide 17.3 mEq/L (21.0-31.0) L 11/25/18 05:55 Anion Gap 18.0 (7.0-16.0) H 11/25/18 05:55 BUN 73 mg/dL (7-25) H 11/25/18 05:55 Creatinine 5.6 mg/dL (0.7-1.3) H* 11/25/18 05:55 Est GFR ( Amer) 14.0 ml/min (>90) 11/25/18 05:55 Est GFR (Non-Af Amer) 11.6 ml/min 11/25/18 05:55 BUN/Creatinine Ratio 13.0 11/25/18 05:55 Glucose 135 mg/dL (70-105) H 11/25/18 05:55 POC Glucose 168 MG/DL (70 - 105) H 11/25/18 20:21 Whole Bld Lactic Acid 0.59 mmol/L (0.60-1.99) L 11/21/18 19:00 Calcium 8.5 mg/dL (8.6-10.3) L 11/25/18 05:55 Magnesium 2.5 mg/dL (1.9-2.7) 11/24/18 06:45 Total Bilirubin 0.5 mg/dL (0.3-1.0) 11/24/18 06:45 AST 16 U/L (13-39) 11/24/18 06:45 ALT 22 U/L (7-52) 11/24/18 06:45 Alkaline Phosphatase 191 U/L (34-104) H 11/24/18 06:45 Ammonia 40 umol/L (16-53) 11/22/18 06:22 Creatine Kinase 85 U/L (30-223) 11/21/18 19:00 Troponin I 0.02 ng/mL (0.01-0.05) 11/21/18 19:00 B-Natriuretic Peptide 142.0 pg/mL (5.0-100.0) H 11/21/18 19:00 Total Protein 6.0 gm/dL (6.0-8.3) 11/24/18 06:45 Albumin 2.4 gm/dL (4.2-5.5) L 11/24/18 06:45 Globulin 3.6 gm/dL 11/24/18 06:45 Albumin/Globulin Ratio 0.7 (1.0-1.8) L 11/24/18 06:45 Triglycerides 219 mg/dL (<150) H 11/21/18 19:00 Cholesterol 73 mg/dL (<200) 11/21/18 19:00 LDL Cholesterol Direct 18 mg/dL (75-193) L 11/21/18 19:00 HDL Cholesterol 12 mg/dL (23-92) L 11/21/18 19:00 Amylase 50 U/L (29-103) 11/21/18 19:00 Lipase 39 U/L (11-82) 11/21/18 19:00 Vitamin B12 569 pg/mL (232-1245) 11/22/18 06:22 Folic Acid >20.0 ng/mL (>3.0) 11/22/18 06:22 TSH 0.89 uIU/ml (0.34-5.60) 11/22/18 06:22 Urine Source CLEAN C 11/21/18 21:26 Urine Color YELLOW 11/21/18 21:26 Urine Clarity HAZY (CLEAR) 11/21/18 21:26 Urine pH 8.5 (4.6 - 8.0) 11/21/18 21:26 Ur Specific [place] 1.020 (1.005-1.030) 11/21/18 21:26 Urine Protein >=300 mg/dL (NEGATIVE) 11/21/18 21:26 Urine Glucose (UA) NEGATIVE mg/dL (NEGATIVE) 11/21/18 21: Urine Ketones NEGATIVE mg/dL (NEGATIVE) 11/21/18 21:26 Urine Blood MODERATE (NEGATIVE) H 11/21/18 21:26 Urine Nitrate POSITIVE (NEGATIVE) H 11/21/18 21:26 Urine Bilirubin NEGATIVE (NEGATIVE) 11/21/18 21:26 Urine Urobilinogen 0.2 E.U./dL (0.2 - 1.0) 11/21/18 21:26 Ur Leukocyte Esterase MODERATE (NEGATIVE) H 11/21/18 21:26 Urine RBC 2-5 /hpf (0-5) H 11/21/18 21:26 Urine WBC 10-25 /hpf (0-5) H 11/21/18 21:26 Ur Epithelial Cells FEW /lpf (FEW) 11/21/18 21: Urine Bacteria 1+ /hpf (NONE SEEN) H 11/21/18 21:26 Urine Creatinine 88.0 mg/dl (39.0-259.0) 11/25/18 18:00 - Physical Exam Vitals and I&O: Vital Signs Temp 99.7 F 11/25/18 23:59 Pulse 114 11/25/18 23:59 Resp 19 11/26/18 00:00 BP 155/89 11/25/18 23:59 Pulse Ox 96 11/25/18 23:59 Intake & Output 11/25/18 11/25/18 11/26/18 06:59 18:59 06:59 Intake Total 770.013 3172.500 Output Total 1350 500 Balance -374.167 847.500 Weight (lbs) 63.957 kg 63.957 kg Intake: Intake, IV Amount 977.189 8251.500 D5-0.9%Ns 1,000 ml @ 40 923.333 mls/hr IV .Q24H [facility] Rx#: [id number] Piperacillin Sodium/ 275.833 124.167 Tazobact 2.25 gm In Sodium Chloride 0.9% 100 ml @ 100 mls/hr IV Q8HR [facility] Rx#:[id number] Oral 700 300 Output: Urine 1350 500 Other: # Bowel Movements 0 Weight Source Bedscale Bedscale Active Medications: Current Medications Acetaminophen (Tylenol 650mg Supp) 650 mg RC Q4HR PRN PRN Reason: MILD PAIN OR TEMP >100 Stop: 01/20/19 23:21 Last Admin: 11/22/18 20:51 Dose: 650 mg Acetaminophen/Hydrocodone Bitart ([place] 5mg/325mg) 1 tab PO Q4H PRN PRN Reason: MODERATE PAIN (LEVEL 4-6) Stop: 01/20/19 23:21 Last Admin: 11/25/18 22:31 Dose: 1 tab Albuterol Sulfate (Albuterol 2.5mg/3ml Neb Ud) 2.5 mg HHN Q2HRT PRN PRN Reason: Shortness of Breath or Wheeze Stop: 01/20/19 23:25 Baclofen (Lioresal) 10 mg PO QID [facility] Stop: 01/21/19 08:59 Last Admin: 11/25/18 20:29 Dose: 10 mg Famotidine (Pepcid) 20 mg PO DAILY@0730 [facility] Stop: 01/21/19 07:29 Last Admin: 11/25/18 06:43 Dose: 20 mg Heparin Sodium (Porcine) (Heparin) 5,000 units SUBQ Q12HR [facility] Stop: 01/21/19 08:59 Last Admin: 11/25/18 20:41 Dose: Not Given Piperacillin Sod/Tazobactam (Sod 2.25 gm/ Sodium Chloride) 100 mls @ 100 mls/ hr IV Q8HR [facility] Stop: 01/21/19 04:59 Last Admin: 11/25/18 20:32 Dose: 100 mls/hr Dextrose/Sodium Chloride (D5-0.45ns) 1,000 mls @ 40 mls/hr IV .Q24H [facility] Stop: 01/24/19 16:29 Last Admin: 11/25/18 16:29 Dose: 40 mls/hr Insulin Aspart (Novolog) 0 units SUBQ ACHS [facility]; Protocol Stop: 01/21/19 07:29 Last Admin: 11/25/18 20:41 Dose: Not Given Lactobacillus Rhamnosus (Culturelle 15b) 1 each PO DAILY [facility] Stop: 01/22/19 15:59 Last Admin: 11/25/18 08:41 Dose: 1 each Magnesium Hydroxide (Milk Of Magnesia) 30 ml PO Q72H PRN PRN Reason: Constipation Stop: 01/20/19 23:21 Metoprolol Tartrate (Lopressor) 50 mg PO TID [facility] Stop: 01/24/19 08:59 Last Admin: 11/25/18 20:28 Dose: 50 mg Mineral Oil (Mineral Oil 30 Ml) 30 ml PO BID [facility] Stop: 01/22/19 16:59 Last Admin: 11/25/18 16:28 Dose: 30 ml Miscellaneous (Probiotic Screen) 1 ea PRN PRN PRN Reason: PROTOCOL Stop: 01/22/19 14:43 Miscellaneous (Amikacin Iv Per Pharmacy) 1 ea PRN PRN PRN Reason: PROTOCOL Stop: 01/22/19 15:54 Ondansetron HCl (Zofran) 4 mg IV Q8H PRN PRN Reason: Nausea / Vomiting Stop: 01/20/19 23:26 Sodium Bicarbonate (Sodium Bicarbonate) 650 mg PO BID [facility]; Protocol Stop: 01/24/19 16:59 Last Admin: 11/25/18 16:51 Dose: 650 mg Sodium Phosphate (Fleet Enema) 135 ml RC PRN PRN PRN Reason: IF DULCOLAX INEFFECTIVE Stop: 01/20/19 23:21 Last Admin: 11/23/18 05:05 Dose: 135 ml - Procedures Procedures: Procedures Procedure Code Date INSERT INDWELLING CATH 57.94 08/21/08 INSERT TEMP BLADDER CATH 70853 08/21/08 Assessment/Plan - Problem List Patient Problems: All Active Problems VOMITING (Acute) - Assessment Assessment: 48M acute / chronic renal insufficiency multiple medical problems Dr. Rodrigues manager of internal recomends HD plan for HD cath placement tomorrow night / earliest time I am available if family agreeable/informed consent obtained. - Plan Plan: HD cath placement tomorrow night. informed consent Nutritional Asmnt/Malnutr-PDOC - Dietary Evaluation Malnutrition Findings (Please click <Entered> for more info): Nutritional Asmnt/Malnutrition Start: 11/22/18 16: 19 Text: Status: Complete Freq: Protocol: Document 11/22/18 16:20 [email or web address] (Rec: 11/22/18 16:36 MICHAELG CARLOS [email or web address]) Nutritional Asmnt/Malnutrition Patient General Information Nutritional Screening High Risk Consult Diagnosis sepsis, UTI Pertinent Medical Hx/Surgical Hx HTN, CVA/TIA, dyslipdiemia, PUD/GERD, renal stone, dementia, CP, osteoporosis Subjective Information Consult received for melisa 12 . Pt seen lying in bed at time of visit, awake, non-verbal noted. Spoke with RN Dallin, RN reported pt ate well, consumed 100% of lunch. Pt has multiple renal stone noted per nurse, urology doctor on case. Current Diet Order/ Nutrition Support SHAGGY, vegerarian pureed, Two Tam HN 1 can if PO<80% Pertinent Medications D5-0.9%ns, pepcid, novolog, heparin, piperacillin, zofran Pertinent Labs 11/22 BUN 65, Cr 5.0, gluocse 150, POC 157-222 11/21 Na 135, BUN 61, Cr 5.1, Gluocse 145, alb 3.2 Nutritional Hx/Data Height 1.6 m Height (Calculated Centimeters) 160.0 Current Weight (lbs) 61.235 kg Weight (Calculated Kilograms) 61.2 Weight (Calculated Grams) 85091.0 [place] Body Weight 124 Body Mass Index (BMI) 23.9 Weight Status Approriate GI Symptoms GI Symptoms None Last BM not indicated Difficult in: None Skin Integrity/Comment: reddened to right and left buttocks Current %PO Good (75-100%) Estimated Nutritional Goals BEE in Kcals: Using Current wt Calories/Kcals/Kg 27-32 Kcals Calculated 5799-1567 Protein: Using Current wt Protein g/k.8 Protein Calculated 49 Fluid: ml per MD Nutritional Problem 1. Problem Problem altered nutrition related labs Etiology renal dysfunction, hyperglycemia Signs/Symptoms: BUN 65, Cr 5.0, gluocse 150, POC 157-222 Intervention/Recommendation Comments 1. Continue with vegetarian pureed SHAGGY diet with supplemental of Two Tam HN as ordered. 2. Will continue to monitor renal labs and consider adjust protein intake, however pt is on vegetarian diet which not providing a large mount of protien at this time. 3. Monitor PO intake, wt, labs and skin integrity 4. F/U as high risk in 2-3 days Expected Outcomes/Goals Expected Outcomes/Goals 1. PO intake to meet at least 75% of nutritional needs. 2. Wt stability, skin to remain intact, labs to approach WNL.
[2018-11-26 04:48] LABS: HEMOGLOBIN 9.2 gm/dL (12-16); MEAN CELL VOLUME 81.4 fl (80-99); MEAN CORPUSCULAR HGB CONC 33.2 pg (28.0-36.0); PLATELET COUNT 247 Th/cmm (150-400); RED BLOOD COUNT 3.39 Mil/cmm (4.30-5.70); RED CELL DISTRIBUTION WIDTH 16.6 % (11.5-20.0)
[2018-11-26] MEDS: Piperacillin Sodium/Tazobact 2.25 GM in Sodium Chloride 0.9% 100 ML IV SCH ×2 (04:59→12:58)
[2018-11-26 05:28] LABS: ANION GAP 17.5 (7.0-16.0); CALCIUM SERUM 8.4 mg/dL (8.6-10.3); CARBON DIOXIDE 17.9 mEq/L (21.0-31.0); GFR AFRICAN-AMERICAN 12.2 ml/min (>90); GFR NON AFRICAN-AMERICAN 10.1 ml/min; MAGNESIUM 2.8 mg/dL (1.9-2.7); PHOSPHOROUS 4.6 mg/dL (2.5-5.0); POTASSIUM SERUM 4.4 mEq/L (3.5-5.1); URIC ACID 8.4 mg/dL (4.4-7.6)
[2018-11-26 05:31] LABS: HEMATOCRIT 27.6 % (41.0-60); WHITE BLOOD COUNT 25.6 Th/cmm (4.8-10.8)
[2018-11-26 05:43] LABS: CREATININE - SERUM 6.3 mg/dL (0.7-1.3)
[2018-11-26] MEDS: INSULIN ASPART, RECOMBINANT 100 UNITS/ML SUBQ SCH ×3 (07:08→17:43)
[2018-11-26 07:34] LABS: BAND NEUTROPHILE 0 % (0-10); BASOPHIL 0 % (0-3); EOSINOPHIL 1 % (0-5); LYMPHOCYTE 5 % (20-50); MONOCYTE 4 % (2-10); NEUTROPHILS 90 % (40-80); PLATELET ESTIMATE ADEQUATE (NORMAL)
--- NOTE | 2018-11-26 08:33 | Diagnostic Imaging Report ---
Radionuclide biliary scan (HIDA scan) HISTORY: Pain 5.3 mCi technetium labeled nuclide agent used in the exam. There is normal hepatic uptake and clearance. There is normal excretion of nuclide into the gallbladder, common bile duct, and small bowel. IMPRESSION: Negative examination.
[2018-11-26] MEDS: Multivitamin w/ Minerals Tab PO SCH (09:12)
[2018-11-26] MEDS: Lactobacillus Rhamnosus GG 15 Billion CFU CAP.SPRINK PO SCH (09:12)
[2018-11-26] MEDS ORDERED: Amikacin 500 mg in D5W 100mL (Q24HR) IV ONE (09:30)
--- NOTE | 2018-11-26 10:07 | GI Progress Note ---
Subjective - Review of Systems Subjective: NO EVENTS Objective - Results Result Diagrams: 11/26/18 04:30 11/26/18 04:30 Recent Labs: Laboratory Last Values WBC 25.6 Th/cmm (4.8-10.8) H* 11/26/18 04:30 RBC 3.39 Mil/cmm (4.30-5.70) L 11/26/18 04:30 Hgb 9.2 gm/dL (12-16) L 11/26/18 04:30 Hct 27.6 % (41.0-60) L D 11/26/18 04:30 MCV 81.4 fl (80-99) 11/26/18 04:30 MCH 27.0 pg (26.0-30.0) 11/26/18 04:30 MCHC Differential 33.2 pg (28.0-36.0) 11/26/18 04:30 RDW 16.6 % (11.5-20.0) 11/26/18 04:30 Plt Count 247 Th/cmm (150-400) 11/26/18 04:30 MPV 7.0 fl 11/26/18 04:30 Add Manual Diff YES 11/26/18 04:30 Neutrophils % 84.7 % (40.0-80.0) H 11/21/18 19:00 Band Neutrophils % 0 % (0-10) 11/26/18 04:30 Lymphocytes % 3.0 % (20.0-50.0) L 11/21/18 19:00 Monocytes % 10.8 % (2.0-10.0) H 11/21/18 19:00 Eosinophils % 1.0 % (0.0-5.0) 11/21/18 19:00 Basophils % 0.5 % (0.0-2.0) 11/21/18 19:00 Neutrophils (Manual) 90 % (40-80) H 11/26/18 04:30 Lymphocytes 5 % (20-50) L 11/26/18 04:30 Monocytes 4 % (2-10) 11/26/18 04:30 Eosinophils 1 % (0-5) 11/26/18 04:30 Basophils 0 % (0-3) 11/26/18 04:30 Platelet Estimate ADEQUATE (NORMAL) 11/26/18 04:30 Eos Smear Source URINE 11/25/18 18:00 Eos Smear Total Cells NONE SEEN (NONE SEEN) 11/25/18 18:00 PT 9.8 SECONDS (9.5-11.5) 11/21/18 19:00 INR 0.94 (0.5-1.4) 11/21/18 19:00 PTT (Actin FS) 31.0 SECONDS (26.0-38.0) 11/21/18 19:00 D-Dimer 3700 ng/mL (100-400) H 11/21/18 19:00 Sodium 150 mEq/L (136-145) H 11/26/18 04:30 Potassium 4.4 mEq/L (3.5-5.1) 11/26/18 04:30 Chloride 119 mEq/L (98-107) H 11/26/18 04:30 Carbon Dioxide 17.9 mEq/L (21.0-31.0) L 11/26/18 04:30 Anion Gap 17.5 (7.0-16.0) H 11/26/18 04:30 BUN 78 mg/dL (7-25) H 11/26/18 04:30 Creatinine 6.3 mg/dL (0.7-1.3) H* 11/26/18 04:30 Est GFR ( Amer) 12.2 ml/min (>90) 11/26/18 04:30 Est GFR (Non-Af Amer) 10.1 ml/min 11/26/18 04:30 BUN/Creatinine Ratio 12.4 11/26/18 04:30 Glucose 132 mg/dL (70-105) H 11/26/18 04:30 POC Glucose 130 MG/DL (70 - 105) H 11/26/18 06:26 Whole Bld Lactic Acid 0.59 mmol/L (0.60-1.99) L 11/21/18 19:00 Uric Acid 8.4 mg/dL (4.4-7.6) H 11/26/18 04:30 Calcium 8.4 mg/dL (8.6-10.3) L 11/26/18 04:30 Phosphorus 4.6 mg/dL (2.5-5.0) 11/26/18 04:30 Magnesium 2.8 mg/dL (1.9-2.7) H 11/26/18 04:30 Total Bilirubin 0.5 mg/dL (0.3-1.0) 11/24/18 06:45 AST 16 U/L (13-39) 11/24/18 06:45 ALT 22 U/L (7-52) 11/24/18 06:45 Alkaline Phosphatase 191 U/L (34-104) H 11/24/18 06:45 Ammonia 40 umol/L (16-53) 11/22/18 06:22 Creatine Kinase 85 U/L (30-223) 11/21/18 19:00 Troponin I 0.02 ng/mL (0.01-0.05) 11/21/18 19:00 B-Natriuretic Peptide 142.0 pg/mL (5.0-100.0) H 11/21/18 19:00 Total Protein 6.0 gm/dL (6.0-8.3) 11/24/18 06:45 Albumin 2.4 gm/dL (4.2-5.5) L 11/24/18 06:45 Globulin 3.6 gm/dL 11/24/18 06:45 Albumin/Globulin Ratio 0.7 (1.0-1.8) L 11/24/18 06:45 Triglycerides 219 mg/dL (<150) H 11/21/18 19:00 Cholesterol 73 mg/dL (<200) 11/21/18 19:00 LDL Cholesterol Direct 18 mg/dL (75-193) L 11/21/18 19:00 HDL Cholesterol 12 mg/dL (23-92) L 11/21/18 19:00 Amylase 50 U/L (29-103) 11/21/18 19:00 Lipase 39 U/L (11-82) 11/21/18 19:00 Vitamin B12 569 pg/mL (232-1245) 11/22/18 06:22 Folic Acid >20.0 ng/mL (>3.0) 11/22/18 06:22 TSH 0.89 uIU/ml (0.34-5.60) 11/22/18 06:22 Urine Source CLEAN C 11/21/18 21:26 Urine Color YELLOW 11/21/18 21:26 Urine Clarity HAZY (CLEAR) 11/21/18 21:26 Urine pH 8.5 (4.6 - 8.0) 11/21/18 21: Ur Specific [place] 1.020 (1.005-1.030) 11/21/18 21: Urine Protein >=300 mg/dL (NEGATIVE) 11/21/18 21: Urine Glucose (UA) NEGATIVE mg/dL (NEGATIVE) 11/21/18 21: Urine Ketones NEGATIVE mg/dL (NEGATIVE) 11/21/18 21: Urine Blood MODERATE (NEGATIVE) H 11/21/18 21: Urine Nitrate POSITIVE (NEGATIVE) H 11/21/18 21: Urine Bilirubin NEGATIVE (NEGATIVE) 11/21/18 21: Urine Urobilinogen 0.2 E.U./dL (0.2 - 1.0) 11/21/18 21: Ur Leukocyte Esterase MODERATE (NEGATIVE) H 11/21/18 21:26 Urine RBC 2-5 /hpf (0-5) H 11/21/18 21:26 Urine WBC 10-25 /hpf (0-5) H 11/21/18 21:26 Ur Epithelial Cells FEW /lpf (FEW) 11/21/18 21:26 Urine Bacteria 1+ /hpf (NONE SEEN) H 11/21/18 21:26 Ur Random Sodium 55 mmol/L 11/25/18 18:00 Urine Creatinine 88.0 mg/dl (39.0-259.0) 11/25/18 18:00 Random Amikacin 9.2 ug/ml (1.0-30.0) 11/24/18 21:00 - Physical Exam Vitals and I&O: Vital Signs Temp 96.9 F 11/26/18 07:48 Pulse 89 11/26/18 09:13 Resp 19 11/26/18 07:48 BP 123/89 11/26/18 09:13 Pulse Ox 98 11/26/18 07:48 Intake & Output 11/25/18 11/26/18 11/26/18 18:59 06:59 18:59 Intake Total 1347.500 100 Output Total 500 490 Balance 847.500 -390 Weight (lbs) 63.957 kg 81.873 kg Intake: Intake, IV Amount 1047.500 100 D5-0.9%Ns 1,000 ml @ 40 923.333 mls/hr IV .Q24H [facility] Rx#: [id number] Piperacillin Sodium/ 124.167 100 Tazobact 2.25 gm In Sodium Chloride 0.9% 100 ml @ 100 mls/hr IV Q8HR [facility] Rx#:[id number] Oral 300 Output: Urine 500 490 Other: Weight Source Bedscale Bedscale Active Medications: Current Medications Acetaminophen (Tylenol 650mg Supp) 650 mg RC Q4HR PRN PRN Reason: MILD PAIN OR TEMP >100 Stop: 01/20/19 23:21 Last Admin: 11/22/18 20:51 Dose: 650 mg Acetaminophen/Hydrocodone Bitart ([place] 5mg/325mg) 1 tab PO Q4H PRN PRN Reason: MODERATE PAIN (LEVEL 4-6) Stop: 01/20/19 23:21 Last Admin: 11/25/18 22:31 Dose: 1 tab Albuterol Sulfate (Albuterol 2.5mg/3ml Neb Ud) 2.5 mg HHN Q2HRT PRN PRN Reason: Shortness of Breath or Wheeze Stop: 01/20/19 23:25 Baclofen (Lioresal) 10 mg PO QID [facility] Stop: 01/21/19 08:59 Last Admin: 11/26/18 09:12 Dose: 10 mg Famotidine (Pepcid) 20 mg PO DAILY@0730 [facility] Stop: 01/21/19 07:29 Last Admin: 11/26/18 06:44 Dose: 20 mg Heparin Sodium (Porcine) (Heparin) 5,000 units SUBQ Q12HR [facility] Stop: 01/21/19 08:59 Last Admin: 11/26/18 09:13 Dose: 5,000 units Piperacillin Sod/Tazobactam (Sod 2.25 gm/ Sodium Chloride) 100 mls @ 100 mls/ hr IV Q8HR [facility] Stop: 01/21/19 04:59 Last Admin: 11/26/18 04:59 Dose: 100 mls/hr Dextrose/Sodium Chloride (D5-0.45ns) 1,000 mls @ 40 mls/hr IV .Q24H [facility] Stop: 01/24/19 16:29 Last Admin: 11/25/18 16:29 Dose: 40 mls/hr Amikacin Sulfate 500 mg/ (Dextrose) 102 mls @ 100 mls/hr IV ONCE ONE Stop: 11/26/18 10:31 Last Admin: 11/26/18 09:35 Dose: 100 mls/hr Insulin Aspart (Novolog) 0 units SUBQ ACHS [facility]; Protocol Stop: 01/21/19 07:29 Last Admin: 11/26/18 07:08 Dose: Not Given Lactobacillus Rhamnosus (Culturelle 15b) 1 each PO DAILY [facility] Stop: 01/22/19 15:59 Last Admin: 11/26/18 09:12 Dose: 1 each Magnesium Hydroxide (Milk Of Magnesia) 30 ml PO Q72H PRN PRN Reason: Constipation Stop: 01/20/19 23:21 Metoprolol Tartrate (Lopressor) 50 mg PO TID [facility] Stop: 01/24/19 08:59 Last Admin: 11/26/18 09:13 Dose: 50 mg Mineral Oil (Mineral Oil 30 Ml) 30 ml PO BID [facility] Stop: 01/22/19 16:59 Last Admin: 11/26/18 09:13 Dose: 30 ml Miscellaneous (Probiotic Screen) 1 ea PRN PRN PRN Reason: PROTOCOL Stop: 01/22/19 14:43 Miscellaneous (Amikacin Iv Per Pharmacy) 1 ea PRN PRN PRN Reason: PROTOCOL Stop: 01/22/19 15:54 Ondansetron HCl (Zofran) 4 mg IV Q8H PRN PRN Reason: Nausea / Vomiting Stop: 01/20/19 23:26 Sodium Bicarbonate (Sodium Bicarbonate) 650 mg PO BID [facility]; Protocol Stop: 01/24/19 16:59 Last Admin: 11/26/18 09:12 Dose: 650 mg Sodium Phosphate (Fleet Enema) 135 ml PRN PRN PRN Reason: IF DULCOLAX INEFFECTIVE Stop: 01/20/19 23:21 Last Admin: 11/23/18 05:05 Dose: 135 ml - Procedures Procedures: Procedures Procedure Code Date INSERT INDWELLING CATH 57.94 08/21/08 INSERT TEMP BLADDER CATH 12926 08/21/08 Assessment/Plan - Problem List Patient Problems: All Active Problems VOMITING (Acute) - Assessment Assessment: 48 YO MALE WITH ABD DISTENSION DUE TO ILEUS PT ALSO HAS GALLSTONES AND HIDA IS NEG CAUSE OF ILEUS LIKELY DUE TO UNDERLYING URINARY OBSTRUCTION AND INFECTION 1.MINERAL OIL 2.NEEDS UROLOGY INPUT 3.VIANEY IF SX'S
[2018-11-26 11:58] LABS: CREATININE - SERUM 5.4 mg/dL (0.7-1.3)
--- NOTE | 2018-11-26 14:10 | General Progress Note ---
Subjective - Review of Systems Service Date: 11/26/18 Subjective: awake, remains nonverbal Objective - Results Result Diagrams: 11/26/18 04:30 11/26/18 04:30 Recent Labs: Laboratory Last Values WBC 25.6 Th/cmm (4.8-10.8) H* 11/26/18 04:30 RBC 3.39 Mil/cmm (4.30-5.70) L 11/26/18 04:30 Hgb 9.2 gm/dL (12-16) L 11/26/18 04:30 Hct 27.6 % (41.0-60) L D 11/26/18 04:30 MCV 81.4 fl (80-99) 11/26/18 04:30 MCH 27.0 pg (26.0-30.0) 11/26/18 04:30 MCHC Differential 33.2 pg (28.0-36.0) 11/26/18 04:30 RDW 16.6 % (11.5-20.0) 11/26/18 04:30 Plt Count 247 Th/cmm (150-400) 11/26/18 04:30 MPV 7.0 fl 11/26/18 04:30 Add Manual Diff YES 11/26/18 04:30 Neutrophils % 84.7 % (40.0-80.0) H 11/21/18 19:00 Band Neutrophils % 0 % (0-10) 11/26/18 04:30 Lymphocytes % 3.0 % (20.0-50.0) L 11/21/18 19:00 Monocytes % 10.8 % (2.0-10.0) H 11/21/18 19:00 Eosinophils % 1.0 % (0.0-5.0) 11/21/18 19:00 Basophils % 0.5 % (0.0-2.0) 11/21/18 19:00 Neutrophils (Manual) 90 % (40-80) H 11/26/18 04:30 Lymphocytes 5 % (20-50) L 11/26/18 04:30 Monocytes 4 % (2-10) 11/26/18 04:30 Eosinophils 1 % (0-5) 11/26/18 04:30 Basophils 0 % (0-3) 11/26/18 04:30 Platelet Estimate ADEQUATE (NORMAL) 11/26/18 04:30 Eos Smear Source URINE 11/25/18 18:00 Eos Smear Total Cells NONE SEEN (NONE SEEN) 11/25/18 18:00 PT 9.8 SECONDS (9.5-11.5) 11/21/18 19:00 INR 0.94 (0.5-1.4) 11/21/18 19:00 PTT (Actin FS) 31.0 SECONDS (26.0-38.0) 11/21/18 19:00 D-Dimer 3700 ng/mL (100-400) H 11/21/18 19:00 Sodium 150 mEq/L (136-145) H 11/26/18 04:30 Potassium 4.4 mEq/L (3.5-5.1) 11/26/18 04:30 Chloride 119 mEq/L (98-107) H 11/26/18 04:30 Carbon Dioxide 17.9 mEq/L (21.0-31.0) L 11/26/18 04:30 Anion Gap 17.5 (7.0-16.0) H 11/26/18 04:30 BUN 78 mg/dL (7-25) H 11/26/18 04:30 Creatinine 6.3 mg/dL (0.7-1.3) H* 11/26/18 04:30 Est GFR ( Amer) 12.2 ml/min (>90) 11/26/18 04:30 Est GFR (Non-Af Amer) 10.1 ml/min 11/26/18 04:30 BUN/Creatinine Ratio 12.4 11/26/18 04:30 Glucose 132 mg/dL (70-105) H 11/26/18 04:30 POC Glucose 185 MG/DL (70 - 105) H 11/26/18 12:05 Whole Bld Lactic Acid 0.59 mmol/L (0.60-1.99) L 11/21/18 19:00 Uric Acid 8.4 mg/dL (4.4-7.6) H 11/26/18 04:30 Calcium 8.4 mg/dL (8.6-10.3) L 11/26/18 04:30 Phosphorus 4.6 mg/dL (2.5-5.0) 11/26/18 04:30 Magnesium 2.8 mg/dL (1.9-2.7) H 11/26/18 04:30 Total Bilirubin 0.5 mg/dL (0.3-1.0) 11/24/18 06:45 AST 16 U/L (13-39) 11/24/18 06:45 ALT 22 U/L (7-52) 11/24/18 06:45 Alkaline Phosphatase 191 U/L (34-104) H 11/24/18 06:45 Ammonia 40 umol/L (16-53) 11/22/18 06:22 Creatine Kinase 85 U/L (30-223) 11/21/18 19:00 Troponin I 0.02 ng/mL (0.01-0.05) 11/21/18 19:00 B-Natriuretic Peptide 142.0 pg/mL (5.0-100.0) H 11/21/18 19:00 Total Protein 6.0 gm/dL (6.0-8.3) 11/24/18 06:45 Albumin 2.4 gm/dL (4.2-5.5) L 11/24/18 06:45 Globulin 3.6 gm/dL 11/24/18 06:45 Albumin/Globulin Ratio 0.7 (1.0-1.8) L 11/24/18 06:45 Triglycerides 219 mg/dL (<150) H 11/21/18 19:00 Cholesterol 73 mg/dL (<200) 11/21/18 19:00 LDL Cholesterol Direct 18 mg/dL (75-193) L 11/21/18 19:00 HDL Cholesterol 12 mg/dL (23-92) L 11/21/18 19:00 Amylase 50 U/L (29-103) 11/21/18 19:00 Lipase 39 U/L (11-82) 11/21/18 19:00 Vitamin B12 569 pg/mL (232-1245) 11/22/18 06:22 Folic Acid >20.0 ng/mL (>3.0) 11/22/18 06:22 TSH 0.89 uIU/ml (0.34-5.60) 11/22/18 06:22 Urine Source CLEAN C 11/21/18 21:26 Urine Color YELLOW 11/21/18 21:26 Urine Clarity HAZY (CLEAR) 11/21/18 21:26 Urine pH 8.5 (4.6 - 8.0) 11/21/18 21: Ur Specific [place] 1.020 (1.005-1.030) 11/21/18 21: Urine Protein >=300 mg/dL (NEGATIVE) 11/21/18 21: Urine Glucose (UA) NEGATIVE mg/dL (NEGATIVE) 11/21/18 21: Urine Ketones NEGATIVE mg/dL (NEGATIVE) 11/21/18 21: Urine Blood MODERATE (NEGATIVE) H 11/21/18 21: Urine Nitrate POSITIVE (NEGATIVE) H 11/21/18 21: Urine Bilirubin NEGATIVE (NEGATIVE) 11/21/18 21: Urine Urobilinogen 0.2 E.U./dL (0.2 - 1.0) 11/21/18 21: Ur Leukocyte Esterase MODERATE (NEGATIVE) H 11/21/18 21: Urine RBC 2-5 /hpf (0-5) H 11/21/18 21: Urine WBC 10-25 /hpf (0-5) H 11/21/18 21: Ur Epithelial Cells FEW /lpf (FEW) 11/21/18 21: Urine Bacteria 1+ /hpf (NONE SEEN) H 11/21/18 21: Ur Random Sodium 55 mmol/L 11/25/18 18:00 Urine Creatinine 88.0 mg/dl (39.0-259.0) 11/25/18 18:00 Random Amikacin 9.2 ug/ml (1.0-30.0) 11/24/18 21:00 - Physical Exam Vitals and I&O: Vital Signs Temp 97.1 F 11/26/18 11:31 Pulse 81 11/26/18 13:06 Resp 19 11/26/18 12:00 BP 121/78 11/26/18 13:06 Pulse Ox 97 11/26/18 11:31 Intake & Output 11/25/18 11/26/18 11/26/18 18:59 06:59 18:59 Intake Total 1347.500 200 Output Total 500 490 Balance 847.500 -290 Weight (lbs) 63.957 kg 81.873 kg Intake: Intake, IV Amount 1047.500 200 D5-0.9%Ns 1,000 ml @ 40 923.333 mls/hr IV .Q24H [facility] Rx#: [id number] Piperacillin Sodium/ 124.167 200 Tazobact 2.25 gm In Sodium Chloride 0.9% 100 ml @ 100 mls/hr IV Q8HR [facility] Rx#:[id number] Oral 300 Output: Urine 500 490 Other: Weight Source Bedscale Bedscale Active Medications: Current Medications Acetaminophen (Tylenol 650mg Supp) 650 mg RC Q4HR PRN PRN Reason: MILD PAIN OR TEMP >100 Stop: 01/20/19 23:21 Last Admin: 11/22/18 20:51 Dose: 650 mg Acetaminophen/Hydrocodone Bitart (Cook 5mg/325mg) 1 tab PO Q4H PRN PRN Reason: MODERATE PAIN (LEVEL 4-6) Stop: 01/20/19 23:21 Last Admin: 11/25/18 22:31 Dose: 1 tab Albuterol Sulfate (Albuterol 2.5mg/3ml Neb Ud) 2.5 mg HHN Q2HRT PRN PRN Reason: Shortness of Breath or Wheeze Stop: 01/20/19 23:25 Baclofen (Lioresal) 10 mg PO QID [facility] Stop: 01/21/19 08:59 Last Admin: 11/26/18 13:06 Dose: 10 mg Famotidine (Pepcid) 20 mg PO DAILY@0730 [facility] Stop: 01/21/19 07:29 Last Admin: 11/26/18 06:44 Dose: 20 mg Heparin Sodium (Porcine) (Heparin) 5,000 units SUBQ Q12HR [facility] Stop: 01/21/19 08:59 Last Admin: 11/26/18 09:13 Dose: 5,000 units Piperacillin Sod/Tazobactam (Sod 2.25 gm/ Sodium Chloride) 100 mls @ 100 mls/ hr IV Q8HR [facility] Stop: 01/21/19 04:59 Last Admin: 11/26/18 12:58 Dose: 100 mls/hr Dextrose/Sodium Chloride (D5-0.45ns) 1,000 mls @ 40 mls/hr IV .Q24H [facility] Stop: 01/24/19 16:29 Last Admin: 11/25/18 16:29 Dose: 40 mls/hr Insulin Aspart (Novolog) 0 units SUBQ [facility]; Protocol Stop: 01/21/19 07:29 Last Admin: 11/26/18 12:35 Dose: Not Given Lactobacillus Rhamnosus (Culturelle 15b) 1 each PO DAILY [facility] Stop: 01/22/19 15:59 Last Admin: 11/26/18 09:12 Dose: 1 each Magnesium Hydroxide (Milk Of Magnesia) 30 ml PO Q72H PRN PRN Reason: Constipation Stop: 01/20/19 23:21 Metoprolol Tartrate (Lopressor) 50 mg PO TID [facility] Stop: 01/24/19 08:59 Last Admin: 11/26/18 13:06 Dose: 50 mg Mineral Oil (Mineral Oil 30 Ml) 30 ml PO BID [facility] Stop: 01/22/19 16:59 Last Admin: 11/26/18 09:13 Dose: 30 ml Miscellaneous (Probiotic Screen) 1 ea PRN PRN PRN Reason: PROTOCOL Stop: 01/22/19 14:43 Miscellaneous (Amikacin Iv Per Pharmacy) 1 ea PRN PRN PRN Reason: PROTOCOL Stop: 01/22/19 15:54 Ondansetron HCl (Zofran) 4 mg IV Q8H PRN PRN Reason: Nausea / Vomiting Stop: 01/20/19 23:26 Sodium Bicarbonate (Sodium Bicarbonate) 650 mg PO BID [facility]; Protocol Stop: 01/24/19 16:59 Last Admin: 11/26/18 09:12 Dose: 650 mg Sodium Phosphate (Fleet Enema) 135 ml RC PRN PRN PRN Reason: IF DULCOLAX INEFFECTIVE Stop: 01/20/19 23:21 Last Admin: 11/23/18 05:05 Dose: 135 ml General: Alert, No acute distress HEENT: Atraumatic, Mucous membr. moist/pink Neck: Supple, +2 carotid pulse wo bruit Cardiovascular: Regular rate, Normal S1, Normal S2 Lungs: Clear to auscultation Abdomen: Bowel sounds, Soft Extremities: no Edema Neurological: Sensation intact Skin: no Rash Psych/Mental Status: Mood NL - Procedures Procedures: Procedures Procedure Code Date INSERT INDWELLING CATH 57.94 08/21/08 INSERT TEMP BLADDER CATH [id number] 08/21/08 Assessment/Plan - Problem List Patient Problems: All Active Problems VOMITING (Acute) - Assessment Assessment: CKD Chronic B/L renal/Ureteral Calculi B/L [place] Ileus Cholelithiasis P. jas Cx UTI P aeruginosa bacteremia Hypernatremia - Plan Plan: Lab - Result Diagrams 11/26/18 04:30 11/26/18 04:30 Current Medications Acetaminophen (Tylenol 650mg Supp) 650 mg RC Q4HR PRN PRN Reason: MILD PAIN OR TEMP >100 Stop: 01/20/19 23:21 Last Admin: 11/22/18 20:51 Dose: 650 mg Acetaminophen/Hydrocodone Bitart (Cook 5mg/325mg) 1 tab PO Q4H PRN PRN Reason: MODERATE PAIN (LEVEL 4-6) Stop: 01/20/19 23:21 Last Admin: 11/25/18 22:31 Dose: 1 tab Albuterol Sulfate (Albuterol 2.5mg/3ml Neb Ud) 2.5 mg HHN Q2HRT PRN PRN Reason: Shortness of Breath or Wheeze Stop: 01/20/19 23:25 Baclofen (Lioresal) 10 mg PO QID [facility] Stop: 01/21/19 08:59 Last Admin: 11/26/18 13:06 Dose: 10 mg Famotidine (Pepcid) 20 mg PO DAILY@0730 [facility] Stop: 01/21/19 07:29 Last Admin: 11/26/18 06:44 Dose: 20 mg Heparin Sodium (Porcine) (Heparin) 5,000 units SUBQ Q12HR [facility] Stop: 01/21/19 08:59 Last Admin: 11/26/18 09:13 Dose: 5,000 units Piperacillin Sod/Tazobactam (Sod 2.25 gm/ Sodium Chloride) 100 mls @ 100 mls/ hr IV Q8HR [facility] Stop: 01/21/19 04:59 Last Admin: 11/26/18 12:58 Dose: 100 mls/hr Dextrose/Sodium Chloride (D5-0.45ns) 1,000 mls @ 40 mls/hr IV .Q24H [facility] Stop: 01/24/19 16:29 Last Admin: 11/25/18 16:29 Dose: 40 mls/hr Insulin Aspart (Novolog) 0 units SUBQ ACHS [facility]; Protocol Stop: 01/21/19 07:29 Last Admin: 11/26/18 12:35 Dose: Not Given Lactobacillus Rhamnosus (Culturelle 15b) 1 each PO DAILY [facility] Stop: 01/22/19 15:59 Last Admin: 11/26/18 09:12 Dose: 1 each Magnesium Hydroxide (Milk Of Magnesia) 30 ml PO Q72H PRN PRN Reason: Constipation Stop: 01/20/19 23:21 Metoprolol Tartrate (Lopressor) 50 mg PO TID [facility] Stop: 01/24/19 08:59 Last Admin: 11/26/18 13:06 Dose: 50 mg Mineral Oil (Mineral Oil 30 Ml) 30 ml PO BID [facility] Stop: 01/22/19 16:59 Last Admin: 11/26/18 09:13 Dose: 30 ml Miscellaneous (Probiotic Screen) 1 ea PRN PRN PRN Reason: PROTOCOL Stop: 01/22/19 14:43 Miscellaneous (Amikacin Iv Per Pharmacy) 1 ea PRN PRN PRN Reason: PROTOCOL Stop: 01/22/19 15:54 Ondansetron HCl (Zofran) 4 mg IV Q8H PRN PRN Reason: Nausea / Vomiting Stop: 01/20/19 23:26 Sodium Bicarbonate (Sodium Bicarbonate) 650 mg PO BID [facility]; Protocol Stop: 01/24/19 16:59 Last Admin: 11/26/18 09:12 Dose: 650 mg Sodium Phosphate (Fleet Enema) 135 ml RC PRN PRN PRN Reason: IF DULCOLAX INEFFECTIVE Stop: 01/20/19 23:21 Last Admin: 11/23/18 05:05 Dose: 135 ml Lab - Result Diagrams 11/26/18 04:30 11/26/18 04:30 Kidney fnc basically the same Mother does not want any interventions DC plan Nutritional Asmnt/Malnutr-PDOC - Dietary Evaluation Malnutrition Findings (Please click <Entered> for more info): Nutritional Asmnt/Malnutrition Start: 11/22/18 16: 19 Text: Status: Complete Freq: Protocol: Document 11/22/18 16:20 ASHLEY (Rec: 11/22/18 16:36 ASHLEY [email or web address]) Nutritional Asmnt/Malnutrition Patient General Information Nutritional Screening High Risk Consult Diagnosis sepsis, UTI Pertinent Medical Hx/Surgical Hx HTN, CVA/TIA, dyslipdiemia, PUD/GERD, renal stone, dementia, CP, osteoporosis Subjective Information Consult received for melisa Barron . Pt seen lying in bed at time of visit, awake, non-verbal noted. Spoke with GARO Zamarripa RN reported pt ate well, consumed 100% of lunch. Pt has multiple renal stone noted per nurse, urology doctor on case. Current Diet Order/ Nutrition Support SHAGGY, vegerarian pureed, Two Atm HN 1 can if PO<80% Pertinent Medications D5-0.9%ns, pepcid, novolog, heparin, piperacillin, zofran Pertinent Labs 11/22 BUN 65, Cr 5.0, gluocse 150, POC 157-222 11/21 Na 135, BUN 61, Cr 5.1, Gluocse 145, alb 3.2 Nutritional Hx/Data Height 1.6 m Height (Calculated Centimeters) 160.0 Current Weight (lbs) 61.235 kg Weight (Calculated Kilograms) 61.2 Weight (Calculated Grams) 92999.0 [place] Body Weight 124 Body Mass Index (BMI) 23.9 Weight Status Approriate GI Symptoms GI Symptoms None Last BM not indicated Difficult in: None Skin Integrity/Comment: reddened to right and left buttocks Current %PO Good (75-100%) Estimated Nutritional Goals BEE in Kcals: Using Current wt Calories/Kcals/Kg 27-32 Kcals Calculated 1831-4558 Protein: Using Current wt Protein g/k.8 Protein Calculated 49 Fluid: ml per MD Nutritional Problem 1. Problem Problem altered nutrition related labs Etiology renal dysfunction, hyperglycemia Signs/Symptoms: BUN 65, Cr 5.0, gluocse 150, POC 157-222 Intervention/Recommendation Comments 1. Continue with vegetarian pureed SHAGGY diet with supplemental of Two Tam HN as ordered. 2. Will continue to monitor renal labs and consider adjust protein intake, however pt is on vegetarian diet which not providing a large mount of protien at this time. 3. Monitor PO intake, wt, labs and skin integrity 4. F/U as high risk in 2-3 days Expected Outcomes/Goals Expected Outcomes/Goals 1. PO intake to meet at least 75% of nutritional needs. 2. Wt stability, skin to remain intact, labs to approach WNL.
[2018-11-26] MEDS ORDERED: Dextrose 5% 1,000 ML IV SCH (14:15)
--- NOTE | 2018-11-26 20:13 | Discharge Summary ---
DATE OF DISCHARGE: 11/26/2018 CHIEF COMPLAINT: Abdominal pain. FINAL DIAGNOSES: Urinary tract infection, sepsis, acute renal failure, extensive kidney stones, leukocytosis, metabolic acidosis, low albumin, cerebral palsy, mental retardation, spastic quadriplegia, hypertension, cardiomyopathy, hypercholesterolemia, status post PEG. HISTORY: This is a 48-year-old unfortunate male with history of cerebral palsy, mental retardation, known kidney stone, admitted secondary to abdominal pain. The patient was admitted to telemetry. PHYSICAL EXAMINATION: VITAL SIGNS: Blood pressure 120/70, respirations 18, pulse 81, temperature 97.1. GENERAL: Elderly male, appears chronically ill. NECK: Supple. No mass. LUNGS: Equal breath sounds, few rhonchi. HEART: Regular rate and rhythm without appreciable murmur. ABDOMEN: Soft, globular. EXTREMITIES: Positive excoriation. NEUROLOGIC: Limited. HOSPITAL COURSE: The patient was admitted to telemetry. Medication given IV antibiotic and IV hydration. The patient was referred to Dr. Brooks ____ any surgical procedure. The patient will need extensive surgery and possible percutaneous nephrostomy. This was discussed with Dr. Brooks with the mother as well as my discussion with the mother. She wanted conservative management. Dr. Rodrigues for Nephrology suggested hemodialysis, but family does not wish for dialysis ____ the patient for possible [place] catheter placement. Dr. Mixon for GI. The patient's family wanted conservative management. CONDITION ON DISCHARGE: Fair. DISCHARGE INSTRUCTIONS: The patient to be referred to [place]. Continue current treatment. Blood culture was positive for pseudomonas. Urine positive for these. JOB# [id number]
--- NOTE | 2018-11-26 20:40 | Consultation ---
DATE OF CONSULTATION: 11/26/2018 SURGICAL CONSULTATION TIME: 07:57 p.m. HISTORY OF PRESENT ILLNESS: The patient is a patient who came in with nausea, vomiting, diarrhea, flank pain, abdominal pain. The patient with worsening renal function. The patient was seen by Nephrology, Dr. Rodrigues, who discussed with the patient possible need for dialysis catheter placement and requested for dialysis catheter. The patient is mentally handicapped, mentally retarded, history of kidney stones, cerebral palsy, spastic quadriplegia, hypertension, cardiomyopathy, G-tube secondary to dysphagia. ALLERGIES: SULFA. SOCIAL HISTORY: Lives in a skilled nursing requiring 24-hour total care. PHYSICAL EXAMINATION: VITAL SIGNS: Afebrile, vital signs stable. 81 kilograms. BMI 31.9, encephalopathic, cerebral palsy, spastic quadriplegic. CHEST: Clear to auscultation bilaterally. CARDIOVASCULAR: Regular rate. ABDOMEN: Protuberant, but soft, nontender, nondistended. G-tube is in place. He has a Chakraborty catheter. NEUROVASCULAR: Otherwise normal. He is on IV fluids. LABORATORY DATA: White blood cell count 25.6, H and H is 9 and 27.6, platelet count 247. Sodium 150, potassium 4.4, chloride 119, BUN and creatinine is 78 and 6.3. The patient on heparin 5000 units subcutaneous q. 12 hours, Zosyn. IMPRESSION/PLAN: After further discussion with family. It appears that the mother has decided that she is not consenting for hemodialysis catheter placement and hemodialysis. The patient is being planned for transfer to a intermediate facility or long-term acute care setting. Therefore, the consultation for hemodialysis catheter placement canceled. JOB# [id number]
--- NOTE | 2018-11-27 04:49 | Progress Notes ---
DATE: UROLOGY PROGRESS NOTE SUBJECTIVE: The patient has some hematuria, but no other complaints. He is tolerating diet. OBJECTIVE: VITAL SIGNS: On exam, temperature 97.1, heart rate 91, blood pressure 121/78. ABDOMEN: Soft and mildly distended, but no guarding or rigidity. Bladder not palpable. EXTREMITIES: No edema but contracted. LABORATORY AND DIAGNOSTIC DATA: White count 25.6, significant rise; hemoglobin 9.2, significant drop; and platelets 246. Sodium 150, CO2 17.9, BUN 78 and creatinine 6.3 up from 5.6 and 5.3 gradually rising but significantly. Glucose 185, 130 and 132. Urine is growing proteus and blood is growing pseudomonas. IMPRESSION: 1. Bilateral kidney stones and bilateral ureteral stones with bilateral hydronephrosis and worsening renal failure. 2. Sepsis, elevated white count and urinary tract infection with positive blood cultures as well. 3. History of cerebral palsy, no change. PLAN: I had a long discussion with the patient's mother who is the guardian and who has the power of deputy commonwealth's attorney for this patient. I described to her the treatment options of bilateral nephrostomies followed by multiple surgeries to clean out the kidneys of stones versus dialysis with possibility of surgeries to treat the obstructed kidneys with stone surgery or nephrectomies versus comfort care and hospice care to make the patient DNR status. She immediately indicated that she wants him to be DNR and to go in peace as he has suffered enough for the last 49 years. She was going to discuss this with other consultants to convey her feelings very strongly and to avoid any nephrostomies, dialysis or surgeries. I concur and will pass this message to his caretakers. JOB# [id number]
== END 2018-11-26 20:26 | DRG 871 ==
LOC: ER 16:54 → TELE 23:30
PROVIDERS: ADMIT Internal Medicine; ATTEND Internal Medicine
DX: A41.9 Sepsis, unspecified organism (principal); G80.0 Spastic quadriplegic cerebral palsy; E43 Unspecified severe protein-calorie malnutrition; N17.9 Acute kidney failure, unspecified; E87.1 Hypo-osmolality and hyponatremia; I42.9 Cardiomyopathy, unspecified; N13.6 Pyonephrosis; K56.7 Ileus, unspecified; N18.5 Chronic kidney disease, stage 5; N11.9 Chronic tubulo-interstitial nephritis, unspecified; F73 Profound intellectual disabilities; I12.0 Hypertensive chronic kidney disease with stage 5 chronic kidney disease or end stage renal disease; E78.5 Hyperlipidemia, unspecified; K21.9 Gastro-esophageal reflux disease without esophagitis; F03.90 Unspecified dementia, unspecified severity, without behavioral disturbance, psychotic disturbance, mood disturbance, and anxiety; M81.0 Age-related osteoporosis without current pathological fracture; E86.0 Dehydration; E78.00 Pure hypercholesterolemia, unspecified; K80.80 Other cholelithiasis without obstruction; R31.9 Hematuria, unspecified; G40.909 Epilepsy, unspecified, not intractable, without status epilepticus; B96.4 Proteus (mirabilis) (morganii) as the cause of diseases classified elsewhere; I34.0 Nonrheumatic mitral (valve) insufficiency; Z93.1 Gastrostomy status; Z88.2 Allergy status to sulfonamides; Z88.8 Allergy status to other drugs, medicaments and biological substances; Z86.73 Personal history of transient ischemic attack (TIA), and cerebral infarction without residual deficits; Z82.49 Family history of ischemic heart disease and other diseases of the circulatory system; Z95.0 Presence of cardiac pacemaker
CPT/HCPCS: 36415-UA; 71045-TC; 71250-TC; 74000-TC; 78226-TC; 80048-TC; 80053-TC; 80061-TC; 80150-TC; 81001-TC; 81015-TC; 82043-90; 82140-TC; 82150-TC; 82550-TC; 82570-TC; 82607-90; 82746-90; 82948-90; 83605; 83690-TC; 83735-TC; 83880-TC; 83935-90; 84100-TC; 84300-TC; 84443-TC; 84484-TC; 84550-TC; 85007-TC; 85025-TC; 85379-TC; 85610-TC; 85730-TC; 87086-90; 93005; 93970-TC-50; 94760; 96375; 96376; A9537; J0278; J0696; J1644; J1815; J2405; J2543; J7030; J7042; Z7610